=== PATIENT | female | born 1955 | race Caucasian/White ===

== ENCOUNTER 2019-12-31 11:06 | Outpatient (CLI) | payer OTHER, SELFPAY ==
--- NOTE | ~2019-12-31 | XR_ITS ---
EXAMINATION:XR cervical spine 4-5V DATE: 12/31/2019 11:43 INDICATION: Neck pain TECHNIQUE: AP, lateral, lateral swimmers and odontoid views of the cervical spine are provided. COMPARISON: 04/06/2010 FINDINGS: Alignment is normal. The odontoid is intact. No fracture is identified. The vertebral body heights are normal. There is mild loss of intervertebral disc space height throughout the cervical sp ine. Small degenerative osteophytes project from the anterior endplates of multiple vertebral bodies. There is moderate multilevel facet and uncovertebral joint osteoarthritis. Prevertebral soft tissues are normal. IMPRESSION: 1. Mild cervical spondylosis without acute findings or significant interval change. Reviewed, dictated and finalized at location A. IMPRESSION: 1. Mild cervical spondylosis without acute findings or significant interval lorena donnye.
== END 2019-12-31 11:07 | disposition home or self-care (01) ==
PROVIDERS: PCP Physician Assistant; Visit Provider Physician Assistant
DX: M47.812 Spondylosis without myelopathy or radiculopathy, cervical region (principal)
CPT/HCPCS: 72050

== ENCOUNTER 2020-01-18 12:55 | Outpatient (CLI) | payer OTHER, SELFPAY ==
--- NOTE | ~2020-01-18 | MR_ITS ---
EXAMINATION: MR cervical spine wo con DATE: 01/18/2020 13:48 INDICATION: Cervical spondylosis. Neck pain radiating to the shoulders. TECHNIQUE: Magnetic resonance imaging (MRI) of the cervical spine was performed without intravenous c ontrast. Sequences included sagittal T2-weighted FSE, sagittal T2-weighted FS FSE, sagittal T1-weight ed FSE, axial MERGE, and axial T2-weighted FSE. COMPARISON: None FINDINGS: There is 4 degrees levocurvature of cervical spine. Vertebral body heights are normal. Ther e is moderately decreased disc height at C3-C4 and C5-C6 and mildly decreased disc height at C4-C5 an d C6-C7. The spinal cord signal intensity is normal. The following disc levels are specifically discu ssed: C2-C3: The disc does not extend beyond the endplate margin. There is no uncovertebral joint osteoarth ritis. There is mild right and moderate left facet joint osteoarthritis. There is no neural foraminal stenosis. There is no central canal stenosis. C3-C4: The disc is bulging. There is severe right and mild left uncovertebral joint osteoarthritis. T here is mild bilateral facet joint osteoarthritis. There is mild right neural foraminal stenosis. The re is mild central canal stenosis with ventral indentation of spinal cord. C4-C5: The disc is bulging. There is mild right and moderate left uncovertebral joint osteoarthritis. There is mild bilateral facet joint osteoarthritis. There is mild left neural foraminal stenosis. Th ere is mild central canal stenosis. C5-C6: The disc is bulging. There is severe bilateral uncovertebral joint osteoarthritis. There is mi ld bilateral facet joint osteoarthritis. There is moderate bilateral neural foraminal stenosis. There is mild central canal stenosis. C6-C7: The disc is bulging. There is mild bilateral uncovertebral joint osteoarthritis. There is mild bilateral facet joint osteoarthritis. There is mild bilateral neural foraminal stenosis. There is mi ld central canal stenosis. C7-T1: The disc does not extend beyond the endplate margin. There is no uncovertebral joint osteoarth ritis. There is mild bilateral facet joint osteoarthritis. There is no neural foraminal stenosis. The re is no central canal stenosis. IMPRESSION: 1. Moderate cervical spondylosis. Reviewed, dictated and finalized at location E.
== END 2020-01-18 12:56 | disposition home or self-care (01) ==
PROVIDERS: PCP Physician Assistant; Visit Provider Physician Assistant
DX: M47.812 Spondylosis without myelopathy or radiculopathy, cervical region (principal)
CPT/HCPCS: 72141

== ENCOUNTER 2020-01-25 15:44 | Outpatient (CLI) | payer OTHER, SELFPAY ==
[2020-01-25 16:58] LABS: Basophils Absolute Auto 0.1 K/mm3 (0.0-0.1); Basophils Percent Auto 0.7 % (0.2-1.2); Eosinophils Absolute Auto 0.1 K/mm3 (0-0.3); Eosinophils Percent Auto 1.6 % (0-4.4); Hematocrit 39.7 % (37.0-47.0); Hemoglobin 12.7 g/dL (12.0-15.0); Immature Granulocyte Absolute 0.02 K/mm3 (0.00-0.031); Immature Granulocyte Percent A 0.3 % (0-0.5); Lymphocytes Absolute Auto 1.89 K/mm3 (0.9-3.2); Mean Corpuscular Hemoglobin 29.3 pg (26-34); Mean Corpuscular Volume 91.7 fl (80-100); Mean Platelet Volume 12.5 fl (7.4-10.4); Monocytes Absolute Auto 0.9 K/mm3 (0.1-0.6); Monocytes Percent Auto 11.4 % (2.6-8.5); Neutrophils Absolute Auto 4.6 K/mm3 (1.3-6.7); Platelet Count Result 264 k/mm3 (150-375); Red Blood Count 4.33 M/mm3 (4.2-5.4); Red Cell Distribution Width 12.9 % (11.5-14.5); White Blood Count 7.6 K/mm3 (4.5-10.0)
[2020-01-25 17:01] LABS: Add Urine Microscopic? NO; Appearance Urine Clear (Clear); Bilirubin Urine Negative (Negative); Blood Urine Negative (Negative); Color Urine Colorless (Yellow); Glucose Urine UA Negative (Negative); Ketones Urine Negative (Negative); Leukocyte Esterase Ur Negative LEU/UL (Negative); Nitrate Urine Negative (Negative); Protein Urine Negative (Negative); Urobilinogen Urine Negative mg/dL (<2.0)
[2020-01-25 17:04] LABS: Specific Grav Ur 1.004 (1.001-1.035)
[2020-01-25 17:12] LABS: Hemoglobin A1C 5.4 % (<5.7)
[2020-01-25 17:16] LABS: Alanine Aminotransferase 21 U/L (4-35); Albumin Level 4.5 g/dL (3.5-5.1); Alkaline Phosphatase 105 U/L (38-126); Aspartate Amino Transferase 27 U/L (14-36); Bilirubin,Total 0.5 mg/dL (0.2-1.3); Blood Urea Nitrogen 20 mg/dL (7-17); Calcium 9.2 mg/dL (8.4-10.2); Carbon Dioxide 27 mmol/L (22-30); Chloride 103 mmol/L (98-107); Cholesterol 187 mg/dL (0-200); Estimated Glomerular Filt Rate > 60; Glucose 90 mg/dL (65-105); HDL Direct 55 mg/dL; Potassium 4.5 mmol/L (3.4-5.0); Sodium 137 mmol/L (137-145); Triglycerides 122 mg/dL (<150)
[2020-01-25 17:26] LABS: LDL Cholesterol Direct 99 mg/dL
[2020-01-25 17:41] LABS: Thyroid Stimulating Hormone 0.025 uIU/mL (0.465-4.680)
[2020-01-25 18:08] LABS: Free T4 Free Thyroxine 1.37 ng/mL (0.78-2.19)
== END 2020-01-25 15:45 | disposition home or self-care (01) ==
PROVIDERS: PCP Physician Assistant; Visit Provider Physician Assistant
DX: E03.9 Hypothyroidism, unspecified (principal); Z13.6 Encounter for screening for cardiovascular disorders; Z13.1 Encounter for screening for diabetes mellitus; Z79.899 Other long term (current) drug therapy
CPT/HCPCS: 36415; 80053; 80061; 81003; 83036; 84439; 84443; 85025

== ENCOUNTER 2020-03-01 04:53 | Emergency (ER) | payer OTHER, SELFPAY ==
--- NOTE | ~2020-03-01 | CT_ITS ---
EXAMINATION: CT abdomen pelvis w con DATE: 03/01/2020 05:42 INDICATION: Low abdominal pain. TECHNIQUE: Computed tomography (CT) of the abdomen and pelvis was performed with 100 mL Omnipaque 350 intravenous contrast. Automated exposure control and iterative reconstruction technique were employe d. The dose-length product was 583.50 mGy-cm. COMPARISON: CT abdomen and pelvis 09/07/2017 FINDINGS: The visualized portions of the lung bases demonstrate calcified left lung nodules, consiste nt with old granulomatous disease. No pleural effusion. The heart size is normal. No pericardial effu zeus. The liver is normal. There are changes of cholecystectomy. Calcifications in the spleen are con sistent with old granulomatous disease. The pancreas, adrenal glands, and kidneys are normal. There a re scattered diverticula in the colon. There is wall thickening of the sigmoid colon with fat strandi ng centered at a diverticulum, consistent with diverticulitis. There are no dilated loops of bowel. T he appendix is normal. There are no pathologically enlarged lymph nodes. There is trace pelvic ascite s. There is severe lower lumbar spondylosis. IMPRESSION: 1. Sigmoid diverticulitis. No perforation or abscess. Reviewed, dictated and finalized at location A.
[2020-03-01 04:58] VITALS: BP 214/86; PULSE 89; RESP 17; TEMP 36.4; O2SAT 100
--- NOTE | 2020-03-01 05:01 | ED.ABDPAIN ---
HPI - Abdominal Pain General Chief Complaint: Abdominal Pain Stated Complaint: abd pain Time Seen by Provider: 03/01/20 04:56 History of Present Illness HPI narrative: Sharp stabbing pain in the lower abdomen for the past 3 days. She reports having diarrhea at the onset. That resolved 2 days ago andf the pain seemed to be getting better, but returned last night. Additionally she c/o burning pain with urination. No frequency, urgency. Related Data Allergies Allergy/AdvReac Type Severity Reaction Status Date / Time codeine Allergy Unknown Urticaria Verified 02/09/19 14:50 diphenhydramine Allergy Unknown Rash Verified 10/18/16 09:44 hydrocodone Allergy Unknown Verified 10/18/16 09:44 nitrofurantoin Allergy Unknown Verified 06/29/10 05:22 tramadol Allergy Unknown Verified 04/19/15 14:28 DIPHENHYDRAMINE HCL AdvReac Mild ITCHING Uncoded 05/17/19 12:57 Review of Systems Review of Systems: All systems reviewed & are unremarkable except as noted in HPI and below Constitutional: Constitutional: Denies chills and Denies fever(s) Cardiovascular: Cardiovascular: Denies chest pain Respiratory: Respiratory: Denies dyspnea Gastrointestinal: Gastrointestinal: Reports abdominal pain, Denies nausea and Denies vomiting Genitourinary: Genitourinary: Denies hematuria, Denies nocturia and Reports dysuria Musculoskeletal: Musculoskeletal: Denies back pain Neurologic: Denies numbness and Denies weakness [facility] Past Medical History Medical History (Updated 03/01/20 @ 06:36 by Carlos Heck MD) Diverticulitis Family History Family History Grandparent Diabetes mellitus Social History Social History Smoking status: Never smoker Second hand tobacco smoke exposure: No Alcohol intake: never Exam Const: General: healthy appearing, no acute distress and alert Orientation/consciousness: patient oriented x3 HENMT: Head: normal to inspection Neck: Neck: normal visual inspection and no lymphadenopathy Chest: Chest palpation & inspection: no tenderness Resp: Effort & Inspection: normal respiratory effort Auscultation: clear to auscultation bilaterally, no rales, no rhonchi and no wheezes Cardio: Jugular venous distension: no JVD Rate: regular rate Rhythm: regular rhythm Heart sounds: no murmurs GI: Inspection: non-distended GI Palp: Yes Soft to palpation and Yes Tenderness to palpation present (GI) (Suprapubic and LLQ) Skin: General skin exam: normal color Neuro: General: patient oriented x3 and moves all extremities Speech: normal speech Extrem: General: no edema Psych: Appearance: well kempt Affect: Anxious affect present Course Vital Signs Vital signs: Vital Signs Temperature 36.4 C L 03/01/20 04:58 Pulse Rate 89 03/01/20 04:58 Respiratory Rate 17 03/01/20 04:58 Blood Pressure 214/86 H 03/01/20 04:58 Pulse Oximetry 100 03/01/20 04:58 Temperature 36.4 C L 03/01/20 04:58 Pulse Rate 77 03/01/20 06:52 Respiratory Rate 18 03/01/20 06:52 Blood Pressure 132/77 03/01/20 06:52 Pulse Oximetry 98 03/01/20 06:52 MDM - Abdominal Pain MDM Narrative Medical decision making narrative: CT shows uncomplicated diverticulitis. She should be a good candidate for outpatient treatment. Differential Diagnosis Differential diagnosis: Likely acute appendicitis, diverticulitis, pancreatitis and other (UTI) Medical Records Attestation: I reviewed the patient's medical records. Lab Data Attestation: I reviewed the patient's lab results. Result diagrams: 03/01/20 05:02 03/01/20 05:02 Labs: Lab Results 03/01/20 03/01/20 03/01/20 Range/Units 05:02 05:02 05:54 WBC 9.2 (4.5-10.0) K/mm3 RBC 4.59 (4.2-5.4) M/mm3 Hgb 13.5 (12.0-15.0) g/dL Hct 42.1 (37.0-47.0) % MCV 91.7 (80-100) fl MCH 29.4 (26-34) pg MCHC 32.1
[2020-03-01 05:08] LABS: Basophils Percent Auto 0.3 % (0.2-1.2); Eosinophils Absolute Auto 0.2 K/mm3 (0-0.3); Eosinophils Percent Auto 1.9 % (0-4.4); Hematocrit 42.1 % (37.0-47.0); Hemoglobin 13.5 g/dL (12.0-15.0); Immature Granulocyte Absolute 0.03 K/mm3 (0.00-0.031); Immature Granulocyte Percent A 0.3 % (0-0.5); Lymphocytes Absolute Auto 1.94 K/mm3 (0.9-3.2); Lymphocytes Percent Auto 21.2 % (18.3-44.2); Mean Corpuscular HGB Conc 32.1 g/dl (32-36); Mean Corpuscular Hemoglobin 29.4 pg (26-34); Mean Corpuscular Volume 91.7 fl (80-100); Mean Platelet Volume 11.9 fl (7.4-10.4); Monocytes Percent Auto 10.6 % (2.6-8.5); Neutrophils Percent Auto 65.7 % (45.5-73.1); Platelet Count Result 259 k/mm3 (150-375); Red Blood Count 4.59 M/mm3 (4.2-5.4); Red Cell Distribution Width 12.9 % (11.5-14.5); White Blood Count 9.2 K/mm3 (4.5-10.0)
[2020-03-01 05:30] LABS: Alanine Aminotransferase 24 U/L (4-35); Albumin Level 4.6 g/dL (3.5-5.1); Alkaline Phosphatase 103 U/L (38-126); Aspartate Amino Transferase 31 U/L (14-36); Bilirubin,Total 0.7 mg/dL (0.2-1.3); Blood Urea Nitrogen 19 mg/dL (7-17); Calcium 9.4 mg/dL (8.4-10.2); Carbon Dioxide 24 mmol/L (22-30); Chloride 104 mmol/L (98-107); Estimated CRCL calculation 65 ml/min; Estimated Glomerular Filt Rate > 60; Glucose 99 mg/dL (65-105); Lipase 133 U/L (23-300); Potassium 4.3 mmol/L (3.4-5.0); Sodium 137 mmol/L (137-145)
[2020-03-01 06:05] LABS: Add Urine Microscopic? YES; Appearance Urine Clear (Clear); Bilirubin Urine Negative (Negative); Blood Urine Negative (Negative); Color Urine Colorless (Yellow); Glucose Urine UA Negative (Negative); Ketones Urine Negative (Negative); Leukocyte Esterase Ur 2+ LEU/UL (Negative); Nitrate Urine Negative (Negative); Protein Urine Negative (Negative); RBC Urine 0-2 /hpf (0-2); Specific Grav Ur 1.016 (1.001-1.035); Squamous Epithelial Cell Urine Occasional /hpf (Few); Transitional Epi Cells Urine Rare /hpf (None Seen); Urobilinogen Urine Negative mg/dL (<2.0)
[2020-03-01] MEDS: metroNIDAZOLE 250 MG TABLET 500 MG PO (06:33)
[2020-03-01] MEDS: CIPROFLOXACIN 500 MG TAB PO (06:33)
[2020-03-01 06:36] VITALS: BP 175/77; PULSE 72; RESP 18; O2SAT 100
[2020-03-01 06:52] VITALS: BP 132/77; PULSE 77; RESP 18; O2SAT 98
== END 2020-03-01 06:53 | disposition home or self-care (01) ==
PROVIDERS: Emergency Provider Emergency Medicine; PCP Physician Assistant
DX: K57.32 Diverticulitis of large intestine without perforation or abscess without bleeding (principal)
CPT/HCPCS: 36415; 74177; 80053; 81001; 83690; 85025; 87086; 87088; 96374; 99284; A9270; J3010; Q9967

== ENCOUNTER 2020-06-22 09:00 | Outpatient (RCR) | payer OTHER, SELFPAY ==
--- NOTE | 2020-06-01 09:06 | PTOPEVAL ---
PHYSICAL THERAPY EVALUATION AND PLAN OF CARE 06-01-2020 Thank you for referring Flori Mendosa to [facility].? She is scheduled to be seen for therapy? 2 x/week for 3 weeks. Please review, sign, date and return this plan of care GEOVANI. I agree with and certify that the following plan of care is medically necessary. Referring Physician Date Attending Provider: Abelardo Deleon MD *PT Outpatient Evaluation Document 06/01/20 08:05 LUDA (Rec: 06/01/20 09:03 LUDA [id number]) Outpatient Past Medical History Past Medical History Source of Past Medical History Patient Neurological History Hx Neurological Disorders No Significant History Cardiovascular History Hx Cardiac Disorders No Significant History Respiratory History Hx Respiratory Disorders No Significant History Gastrointestinal History Hx Diverticulitis Yes: 2x Genitourinary History Hx Genitourinary Disorders No Significant History Musculoskeletal History Hx Orthopedic Surgery Yes: L tibial ORIF 2018 Hx Other Musculoskeletal Disorders Yes: arthritis L knee Hematological History Hx Hematological Disorders No Significant History Endocrine History Hx Hypothyroidism Yes: meds HEENT History Hx Other HEENT Disorders Yes: wear glasses Integumentary History Hx Skin Disorders No Significant History Reproductive History Hx Other Reproductive Disorders Yes: cyst removed R ovary Evaluation Information Problem Diagnosis R medial meniscal tear Onset 03-25-2020 Subjective Information twisted knee and it popped; Query Text:As Reported By Patient/ continued to pop and pain Family increased; had injection R knee, 2019- did not really help with pain, but did decrease some of swelling; wants her to try PT, then reassess if she needs MRI and/or surgery if PT not help knee; Diagnostic Tests X-Rays For This Problem Yes: R knee arthritis, no fracture MRI For This Problem No Other Tests For This Problem No Previous Treatments Previous Treatments For This Problem no PT for R knee Prior Level of Function Activity Level (Last 3 Months) 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
--- NOTE | 2020-06-22 09:26 | PTOPEVAL ---
PHYSICAL THERAPY DISCHARGE 06-22-2020 Refer to the clinical summary below for her status at discharge. Thank you for referring Flori Mendosa to [facility].? Please review, sign, date and return this discharge GEOVANI. I agree with and certify that the following plan of care is medically necessary. Referring Physician Date Attending Provider: Abelardo Deleon MD *PT Outpatient discharge Document 06/22/20 09:08 LUDA (Rec: 06/22/20 09:26 LUDA [id number]) Subjective Information Flori reports: knee is better; Query Text:As Reported By Patient/ twisted the other night and Family had pain in front of R hip- stretched and used ice on it; feel like she is ready to be finished with therapy and to do exercises at home for continued strength of her knee ; agrees to discharge from PT services; Pain Assessment Timing of Pain Assessment Timing of Pain Assessment Assessment Pain Scale Pain Scale Used Numeric (1 - 10) Self Report Pain Assessment Right Knee(s) Reported Pain Level 0 Pain Description Aching,Tightness Pain Frequency Acute Other Pain Description medial knee Lowest Pain Intensity 0 Greatest Pain Intensity 7 Pain Aggravating Factors Exercise/Activity Other Pain Aggravating Factors twisting knee;worked 8 hours last night without an increase in knee pain Pain Score Pain Score 0: Self Report Interventions Used Interventions Used By Clinicians Exercise,Taping Pain Relief Interventions Used By Ice,Inactivity/Rest Patient Other Alleviating Interventions took muscle relaxer few nights ago, but PRN only use of med; motrin PRN Lower Extremity Range of Motion General Lower Extremity Range of Motion Gross Lower Extremity Range of Motion sitting R knee active ROM 0' Comments to flexion 120'- tight report and pulls posterior knee Lower Extremity Muscle Strength Testing General Lower Extremity Strength Gross Lower Extremity Strength single leg stand R 30+ seconds - no increase pain and steady balance; supine: R LE SLR x 22; bridge x 25 reps; side lying hip abduction x 25 reps; side lying hip adduction x 25 reps; issued green theraband to do
== END 2020-06-22 15:17 | disposition home or self-care (01) ==
LOC: ANHPT 09:00
PROVIDERS: PCP Physician Assistant; Visit Provider Orthopaedic Surgery
DX: S83.241D Other tear of medial meniscus, current injury, right knee, subsequent encounter (principal)
CPT/HCPCS: 97035; 97110; 97140; 97161; 97530

== ENCOUNTER 2020-07-03 07:55 | Outpatient (CLI) | payer OTHER, SELFPAY ==
--- NOTE | ~2020-07-03 | MR_ITS ---
EXAMINATION: MR knee RT wo con DATE: 07/03/2020 09:05 INDICATION: Other tear of medial meniscus, right knee. TECHNIQUE: Magnetic resonance imaging (MRI) of the right knee was performed without intravenous contr ast. Sequences included axial PD-weighted FS FSE, coronal PD-weighted FSE and PD-weighted FS FSE, sag ittal PD-weighted FSE, and sagittal T2-weighted FS FSE. COMPARISON: Right knee radiographs 05/17/2020 FINDINGS: Medial compartment: There is a tear of body and posterior horn of medial meniscus with torn bucket-handle component in th e intercondylar notch. There is cartilage surface irregularity of tibial condyle. There is deep parti al thickness cartilage loss of femoral condyle involving the medial and posterior articular surface w ith mild subchondral edema-like marrow signal intensity. Lateral compartment: Lateral meniscus is normal. Lateral compartment cartilage is normal. Patellofemoral compartment: There is shallow partial-thickness cartilage loss of patellar medial and lateral facets and central a nd medial trochlea. There is deep cartilage fissuring of central trochlea with mild subchondral edema -like marrow signal intensity. Ligaments and tendons: Anterior and posterior cruciate ligaments are normal. Medial collateral ligament and lateral collater al ligament complex are normal. The patellar tendon is normal. Fluid: There is a moderate-sized knee joint effusion. There is trace fluid in a Jauregui's cyst. There is mild prepatellar and superficial infrapatellar bursitis. IMPRESSION: 1. Moderate chondrosis of medial compartment and mild chondrosis of lateral and patellofemoral compar tments. 2. Torn bucket-handle tear of medial meniscus. 3. Moderate-sized knee joint effusion. Reviewed, dictated and finalized at location A. OPERATIONS MANAGER IMPRESSION: 1. Moderate chondrosis of medial compartment and mild chondrosis of lateral and patellofemoral compartments. 2. Torn bucket-handle tear of medial meniscus. 3. Moderate-sized knee joint effusion.
== END 2020-07-03 07:56 | disposition home or self-care (01) ==
PROVIDERS: PCP Physician Assistant; Visit Provider Orthopaedic Surgery
DX: S83.211A Bucket-handle tear of medial meniscus, current injury, right knee, initial encounter (principal); X58.XXXA Exposure to other specified factors, initial encounter; M25.461 Effusion, right knee
CPT/HCPCS: 73721

== ENCOUNTER 2020-07-08 00:57 | Outpatient (CLI) | payer OTHER, SELFPAY ==
[2020-07-08 18:31] LABS: SARS-CoV-2 RNA PCR Negative
== END 2020-07-08 00:58 | disposition home or self-care (01) ==
LOC: ANHCOVIDDT 00:58
PROVIDERS: PCP Physician Assistant; Visit Provider Orthopaedic Surgery
DX: Z01.812 Encounter for preprocedural laboratory examination (principal); Z20.828 Contact with and (suspected) exposure to other viral communicable diseases
CPT/HCPCS: 87635; C9803; U0003

== ENCOUNTER 2020-07-11 00:39 | Day surgery (SDC) | payer OTHER, SELFPAY ==
[2020-07-05 12:48] VITALS: BMI 27.8
[2020-07-11] VITALS (7 sets, daily range): BP systolic 131–166; BP diastolic 59–74; PULSE 64–75; RESP 10–16; TEMP 36.3–37.1; O2SAT 96–100
[2020-07-11] MEDS: ACETAMINOPHEN 500 MG TABLET 1000 MG PO (08:34)
[2020-07-11] MEDS: LACTATED RINGERS 1,000 ML 30 ML IV CONT ×2 (09:00→11:17)
[2020-07-11] MEDS: KETOROLAC 15 MG/ML VIAL (*BKC) IV PUSH (09:02)
--- NOTE | 2020-07-11 09:37 | WPDANESEPPF ---
Anes - Initial Pre Proc Eval Procedure: Operation Date: 07/11/20 10:00 Proposed Procedures p Right Knee Arthroscopy, Partial Medial Meniscectomy, Proceed As Indicated - Abelardo Deleon MD Date/Time: 07/11/20 09:37 Surgeon: Abelardo Deleon MD Pre Op Diagnosis: Right Knee Medial Meniscus Tear Patient Data Age: 64 Gender: F Height: 5 ft 5 in Weight: 76 kg Last Vital Signs Temp 36.3 C L 07/11/20 08:15 Pulse 71 07/11/20 08:15 Resp 16 07/11/20 08:15 BP 147/74 H 07/11/20 08:15 Pulse Ox 99 07/11/20 08:15 Allergies Allergy/AdvReac Type Severity Reaction Status Date / Time codeine Allergy Unknown Confusion Verified 07/11/20 08:21 diphenhydramine Allergy Unknown Nausea/hive Verified 07/11/20 08:21 s nitrofurantoin Allergy Unknown Nausea Verified 07/11/20 08:21 tramadol Allergy Unknown Nausea and Verified 07/11/20 08:21 Vomiting Home Medications Medication Instructions Recorded Confirmed Type citalopram 20 mg PO QAM 07/05/20 07/11/20 History ibuprofen [Motrin] 400 mg PO PRN PRN 07/05/20 07/11/20 History levothyroxine 100 mcg PO DAILY 07/05/20 07/11/20 History timolol [Betimol] 1 drp OPHTHALMIC (EYE) BID 07/05/20 07/11/20 History Patient hx anesthesia problems: none Family hx anesthesia problems: none PMFSH Past Medical History Medical History (Updated 07/11/20 @ 09:37 by Navneet Sena MD) Diverticulitis Hypothyroidism Overweight Surgical History Surgical History (Updated 07/11/20 @ 09:37 by Navneet Sena MD) History of cholecystectomy History of surgery (~03/04/19) IM Nailing Lt Distal Tibial Shaft Family History Family History Grandparent Diabetes mellitus Social History Social History Smoking status: Never smoker Second hand tobacco smoke exposure: No Alcohol intake: never Living arrangements: with family Spiritual care concerns: No Anes - Eval Final PreProcedure Day of Procedure 07/11/20 09:37 Patient weight: overweight Heart: regular rate and rhythm Lungs: clear to auscultation Airway: Mallampati scale class II Neurological: alert and oriented Last oral intake: >/= 8 hours ASA classification: II Emergent: no Anesthetic plan: proceed Anesthesia type and monitoring: general LMA and standard monitoring Informed Consent: The patient's anesthetic plan and its attendant risks and benefits were discussed with the patient/family/POA. Questions were solicited and answers provided to the satisfaction of the patient/family/POA.
--- NOTE | 2020-07-11 09:55 | WPDHPUPDATE1 ---
History and Physical Update Update Date/Time: 07/11/20 09:55 History and Physical has been reviewed, including an updated exam of the patient. There are NO changes in the patient's condition. Risks, benefits, and alternatives have been discussed and questions answered. Patient agrees to proceed with procedure.
[2020-07-11] MEDS: ceFAZolin 2 GM/D5W 50 ML 2 GM/50 ML BAG IVPB (10:09)
[2020-07-11] MEDS: fentaNYL CITRATE INJ (*CRX) 100 MCG/2 ML VIAL 25 MCG IV PUSH ×3 (11:38→12:33)
[2020-07-11] MEDS: ONDANSETRON INJ 4 MG/2 ML VIAL IV PUSH (13:02)
--- NOTE | 2020-07-11 16:20 | PM.PROC ---
Procedure Note - Detailed Date of procedure: 07/12/20 Pre-op diagnosis: Right Knee Medial Meniscus Tear Medial meniscus tear. Post-op diagnosis: same Procedure performed: Arthroscopic partial medial meniscectomy. Description of procedure: Extensive medial and posterior medial tearing of the meniscus and countered. Large displaced fragment into the medial intercondylar notch. Grade 2 chondromalacia on the posterior medial femoral condyle. Fairly small isolated area. Tibia with grade 1 chondromalacia. Lateral compartment entirely benign. Anterior cruciate ligament intact. Minimal grade 1 chondromalacia at the patellofemoral articulation. No other loose bodies or abnormal findings. Anesthesia: GETA Surgeon: Abelardo Deleon MD Community Integration Specialist: Anika Cuevas PA-C Estimated blood loss (mL): 5 Complications: None Condition: stable Findings: Brief History: The patient complained of knee pain, swelling and mechanical symptoms despite conservative treatment. MRI confirmed the presence of a meniscus tear. Procedure Details: The patient was identified and the surgical site confirmed and signed in the preoperative holding area. Antibiotics were started per protocol. She was brought to the operative room and transferred to the OR table. A general anesthetic was administered. Supine position with the operative lower extremity position in the leg loving after placement of a well padded tourniquet. The leg support was lowered and the contralateral limb was supported with a soft bolster. The knee was prepped and draped in the usual sterile fashion. A time-out was performed. The portal sites were marked and infiltrated with 0.5% Marcaine 20 mL. The limb was exsanguinated and the tourniquet inflated to 300 mL Hg. Standard inferolateral and inferomedial portals were established. Inflow was obtained with the saline pump. The camera was introduced. Diagnostic inspection of the joint was accomplished. The meniscus was debrided with the arthroscopic shaver and punches until stable. The arthroscopic instruments were removed. The tourniquet released and wounds closed with subcutaneous 3-0 Monocryl absorbable suture. Steri strips and a sterile dressing were applied. A light elastic wrap was placed. The patient was extubated and brought to the recovery room in stable condition.
== END 2020-07-11 13:20 | disposition home or self-care (01) ==
PROVIDERS: PCP Physician Assistant; Visit Provider Orthopaedic Surgery
PROC: (CPT 29870; principal; 2020-07-11 10:00)
DX: M23.331 Other meniscus derangements, other medial meniscus, right knee (principal); M22.41 Chondromalacia patellae, right knee; E03.9 Hypothyroidism, unspecified
CPT/HCPCS: 29881; A9270; J0690; J1100; J1885; J2250; J2405; J2704; J3010; J7120

== ENCOUNTER 2020-08-09 08:30 | Outpatient (RCR) | payer OTHER, SELFPAY ==
--- NOTE | 2020-07-19 17:38 | PTOPEVAL ---
PHYSICAL THERAPY EVALUATION AND PLAN OF CARE Thank you for referring Flori Menodsa to [facility] [place] [facility] [place] The patient is scheduled to be seen for therapy? 2x/week for 3 weeks. Please review, sign, date and return this plan of care GEOVANI. I agree with and certify that the following plan of care is medically necessary. Referring Physician Date Attending Provider: Abelardo Deleon MD Evaluation Gastrointestinal History Hx Cholecystectomy Yes Hx Diverticulitis Yes: 2x Musculoskeletal History Hx Arthritis Yes: KNEES AND FINGERS Hx Crutches or Walker Use Yes: CRUTCHES 2019 Query Text:If Yes, Enter Crutches, Walker, or Both in the Comment Hx Orthopedic Surgery Yes: L tibial ORIF 2019 Hx Other Musculoskeletal Disorders Yes: RT KNEE MEDIAL MENISCUS TEAR Endocrine History Hx Hypothyroidism Yes HEENT History Hx Glaucoma Yes: EYE DROPS Hx Other HEENT Disorders Yes: wear glasses Reproductive History Hx Other Reproductive Disorders Yes: dermoid cyst removed R ovary. RT LUMPECTOMY MASS BENIGN Psychosocial History Hx Depression Yes Pain History History of Any Previous or Ongoing No Significant History Instance of Pain Anesthesia History Hx Anesthesia Reactions No Significant History Diagnosis right medial meniscectomy Onset 07/11/2020 Subjective Information Flori is here today 8 days after Query Text:As Reported By Patient/ right medial meniscectomy. No Family devices were used. She rested for the first 3 days after surgery. Not back to work yet. She sees doctor again on and will make further decisions at that time. 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 Reports that since surgery there has been a pulling in the back of the knee but otherwise pain is very manageable. Self Report Pain Assessment Right Knee(s) Reported Pain Level 3 Pain Description Aching,Pulling Pain Score Pain Score 3: Self Report Interventions Used Interventions Used By Clinicians Exercise,Ice Pain Relief Interventions Used By Ice,Medication Patient Lower Extremity Range of Motion Knee Range of Motion Right Knee Flexion Range of Motion - Active 112 Knee Extension Range of Motion - Active -5 Query Text: Lower Extremity Muscle Strength Testing Knee Strength Rig
--- NOTE | 2020-08-09 09:13 | PTOPEVAL ---
PHYSICAL THERAPY DISCHARGE NOTE Thank you for referring Flori Mendosa to [facility].? . Please review, sign, date and return this plan of care GEOVANI. I agree with and certify that the following plan of care is medically necessary. Referring Physician Date Attending Provider: Abelardo Deleon MD Discharge Diagnosis right medial menisectomy Onset 07/11/2020 Subjective Information Flori is 1 month s/p right Query Text:As Reported By Patient/ menisectomy. She reports no Family pain and is feeling good. Next MD appt is 08/21 and return to work will be determined at that time. Reports she is able to do as she wants at home without requiring rest breaks. She will get some mild pulling in the back of the knee when walking long distance. Pain Score Pain Score 0: Self Report Lower Extremity Range of Motion Knee Range of Motion Right Knee Flexion Range of Motion - Active 140 Knee Extension Range of Motion - Active 0 Query Text: Lower Extremity Muscle Strength Testing General Lower Extremity Strength Reason Not Measured WNL/Left,WNL/Right Knee Strength Right Knee Flexion Strength 5 Normal Knee Extension Strength 5 Normal Palpation Assessment Palpation Palpation mild edema noted beneath patella and increased tightness noted to medial hamstring tendon at insertion Gait Assessment 2 Minute Walk Total Distance Walked (feet) 429 2 Minute Walk Gait Speed Score (feet/ 3.57 second) Stair Climbing Assessment Stair Climbing Assessment Stair Climbing Assistive Devices None Weight Bearing Status - Left Full Weight Bearing Status - Right As Tolerated Maintains Weight Bearing Status Yes Number of Steps Climbed (Steps) 4 Number of Repetitions (Repetitions) 2 Technique Alternating Steps Stair Climbing Direction Both Up and Down Stair Climbing Ability Independent Stair Climbing Comments independent with some deficit to eccentric control of right LE PT Clinical Summary Flori is a 64 yo female presenting to therapy 1month after right arthroscopic surgery for median menisectomy and fluid reduction. She demonstrates today a normal
== END 2020-10-02 12:14 | disposition home or self-care (01) ==
LOC: ANHPT 08:30
PROVIDERS: PCP Physician Assistant; Visit Provider Orthopaedic Surgery
DX: Z48.89 Encounter for other specified surgical aftercare (principal)
CPT/HCPCS: 97110; 97140; 97161

== ENCOUNTER 2020-08-09 09:17 | Outpatient (CLI) | payer OTHER, SELFPAY ==
[2020-08-09 10:47] LABS: Thyroid Stimulating Hormone 0.026 uIU/mL (0.465-4.680)
== END 2020-08-09 09:18 | disposition home or self-care (01) ==
PROVIDERS: PCP Physician Assistant; Visit Provider Physician Assistant
DX: E03.9 Hypothyroidism, unspecified (principal)
CPT/HCPCS: 36415; 84439; 84443

== ENCOUNTER 2020-10-19 08:24 | Outpatient (CLI) | payer OTHER, SELFPAY ==
--- NOTE | ~2020-10-19 | MM_ITS ---
EXAMINATION: MM screening david BI w jermaine HISTORY: Screening mammogram TECHNIQUE: Craniocaudal and mediolateral oblique 3-D tomosynthesis images were obtained and synthetic 2-D images were generated. CAD analysis was submitted and interpreted. COMPARISON: 07/21/2019, 02/26/2018, 02/15/2017, 12/11/2015 bilateral digital screening mammogram examinati ons 11/07/2014 diagnostic right digital mammogram 6. I diagnostic right digital mammogram and right breast ultrasound 01/04/2014 bilateral digital screening mammogram BREAST PARENCHYMAL COMPOSITION: There are scattered areas of fibroglandular density. FINDINGS: Focal small irregular asymmetry at mid to posterior depth in the upper right breast on MLO projection, possibly mild fibroglandular asymmetry; recommend diagnostic right mammogram, with ultras ound if required to exclude any possible small mass lesion. Otherwise there is no evidence of suspicious mass, calcification, or architectural distortion to sugg est malignancy in either breast. There has been no other suspicious interval change. IMPRESSION: 1. Focal small irregular asymmetry in the upper right breast on MLO view at mid to posterior depth, p ossibly mild fibroglandular asymmetry 2. Recommend diagnostic right mammogram, with ultrasound if required. BI-RADS Category 0: Incomplete: Needs additional imaging evaluation. Reviewed, dictated and finalized at location A. D AMBASSADOR PROMOTIONAL MODEL IMPRESSION: 1. Focal small irregular asymmetry in the upper right breast on MLO view at mid to posterior depth, possibly mild fibroglandular asymmetry 2. Recommend diagnostic right mammogram, with ultrasound if required. BI-RADS Category 0: Incomplete: Needs additional imaging evaluation.
== END 2020-10-19 08:25 | disposition home or self-care (01) ==
PROVIDERS: PCP Physician Assistant; Visit Provider Obstetrics & Gynecology
DX: Z12.31 Encounter for screening mammogram for malignant neoplasm of breast (principal); R92.8 Other abnormal and inconclusive findings on diagnostic imaging of breast
CPT/HCPCS: 77063; 77067

== ENCOUNTER 2020-11-10 11:54 | Outpatient (CLI) | payer OTHER, SELFPAY ==
--- NOTE | ~2020-11-10 | MMUS_ITS ---
EXAMINATION: MM diagnostic mammo unilat RT, US breast RT limited HISTORY: Right breast asymmetry on screening mammogram TECHNIQUE: Additional 3-D tomosynthesis images of the right breast were performed and synthetic 2-D i mages were generated. CAD analysis was submitted and interpreted. High resolution limited right breas t ultrasound was performed. COMPARISON: 10/19/2020, 07/21/2019, 02/26/2018, 02/15/2017 FINDINGS: MAMMOGRAPHIC FINDINGS: There is a persistent asymmetry in the middle third of the upper outer quadrant of the breast at the 11:00 location 8 cm from the nipple on the mediolateral oblique view. ULTRASOUND: An intramammary lymph node is noted at the 11:00 location 8 cm from the nipple. IMPRESSION: 1. Probably benign asymmetry of the right breast. 2. Recommend 6 month follow-up right diagnostic mammogram and possible ultrasound. BI-RADS category 3, probably benign findings. Reviewed, dictated and finalized at location A. IMPRESSION: 1. Probably benign asymmetry of the right breast. 2. Recommend 6 month follow-up right diagnostic mammogram and possible ultrasou nd. BI-RADS category 3, probably benign findings.
== END 2020-11-10 11:55 | disposition home or self-care (01) ==
LOC: ANHIMG 11:56
PROVIDERS: PCP Physician Assistant; Visit Provider Obstetrics & Gynecology
DX: R92.8 Other abnormal and inconclusive findings on diagnostic imaging of breast (principal)
CPT/HCPCS: 76642; 77065

== ENCOUNTER 2021-01-09 22:07 | Emergency (ER) | payer OTHER, SELFPAY ==
--- NOTE | ~2021-01-09 | XR_ITS ---
EXAMINATION: XR chest 2V DATE: 01/10/2021 01:52 INDICATION: Shortness of breath and cough TECHNIQUE: PA and lateral views of the chest were obtained. COMPARISON: Chest radiograph dated 10/15/2012 FINDINGS: Unchanged small calcified nodules in the lateral left lower lung zone consistent with old granulomato us disease. Mild biapical pleural-parenchymal scarring. No other airspace opacities, pulmonary edema, pleural effusion or pneumothorax. The cardiomediastinal silhouette is normal. Mild thoracic spondylo sis. IMPRESSION: 1. No acute cardiopulmonary disease. Reviewed, dictated and finalized at location A.
[2021-01-09 22:09] VITALS: BP 157/86; PULSE 113; RESP 18; TEMP 37.5; O2SAT 98
--- NOTE | 2021-01-10 01:09 | PC.NURSE ---
verbal order per ayanna stevens to place xray.
[2021-01-10 02:42] VITALS: BP 141/87; PULSE 110; RESP 25; TEMP 37.6; O2SAT 95
--- NOTE | 2021-01-10 02:48 | ECG_ITS ---
Measurements Intervals [place] Rate: 111 P: 37 NM: 120 QRS: -21 QRSD: 89 T: 76 QT: 319 QTc: 434 Interpretive Statements SINUS TACHYCARDIA INCOMPLETE RIGHT BUNDLE BRANCH BLOCK VOLTAGE CRITERIA FOR LVH MINIMAL Q WAVES- HIGH LATERAL LEADS CANNOT RULE OUT SEPTAL INFARCT, AGE INDETERMINATE ABNORMAL ECG Electronically Signed On 01-10-2021 8:50:19 CDT by Tee Burns D.O.
--- NOTE | 2021-01-10 03:00 | ED.GENADULT ---
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 Patient's family are asymptomatic. Coughing can be triggered with deep breathing. Related Data Home Medications Medication Instructions Recorded Confirmed Betimol 1 drp OPHTHALMIC (EYE) BID 07/05/20 07/24/20 citalopram 20 mg PO QAM 07/05/20 07/24/20 ibuprofen 400 mg PO PRN PRN 07/05/20 07/24/20 levothyroxine 100 mcg PO DAILY 07/05/20 07/24/20 Allergies Allergy/AdvReac Type Severity Reaction Status Date / Time codeine Allergy Unknown Confusion Verified 07/11/20 08:21 diphenhydramine Allergy Unknown Nausea/hive Verified 07/11/20 08:21 s nitrofurantoin Allergy Unknown Nausea Verified 07/11/20 08:21 tramadol Allergy Unknown Nausea and Verified 07/11/20 08:21 Vomiting Review of Systems Review of Systems: Narrative: CONSTITUTIONAL: Denies fever, chills, or sweats. EYES: Denies visual changes, redness, or discharge. ENT: Denies rhinorrhea, congestion, sore throat, or otalgia. CARDIOVASCULAR: Denies chest pain, palpitations, or edema. RESPIRATORY: Denies cough or dyspnea. GASTROINTESTINAL: Denies abdominal pain, nausea, vomiting, or diarrhea. GENITOURINARY: Denies dysuria or hematuria. SKIN: Denies rash or itching. MUSCULOSKELETAL: Denies back pain, joint pain, or myalgia. NEUROLOGIC: Denies headache, numbness, or weakness. PSYCHIATRIC: Denies anxiety or depression. [facility] Past Medical History Medical History Diverticulitis Hypothyroidism Overweight Surgical History Surgical History History of cholecystectomy History of surgery (~03/04/19) IM Nailing Lt Distal Tibial Shaft Family History Family History Grandparent Diabetes mellitus Social History Social History Smoking status: Never smoker Second hand tobacco smoke exposure: No Alcohol intake: never Gender identity (if verbalized by the patient): Female Spiritual care concerns: No Exam Narrative: Exam Narrative: General appearance: Well-developed, well-nourished Skin: Normal color Head: Normocephalic, nontraumatic Eyes: Clear conjunctiva ENT: Oropharynx normal, ears normal, nose normal Neck: Supple, nontender Chest and respiratory: Few scattered rhonchi and wheezing, mild diminution of air entry bilaterally Heart: Tachycardia regular Abdomen: Soft, nontender, no organomegaly, quiet bowel sounds Vascular: Normal peripheral pulses, normal capillary refill. Musculoskeletal: Normal range of motion, nontender back Neurologic: Alert and oriented ?3, SPONGE CLIPPER is normal as tested, no gross motor deficit Course Course Emergency Course: Stable Vital Signs Vital signs: Vital Signs Temperature 37.5 C 01/09/21 22:09 Pulse Rate 113 H 01/09/21 22:09 Respiratory Rate 18 01/09/21 22:09 Blood Pressure 157/86 H 01/09/21 22:09 Pulse Oximetry 98 01/09/21 22:09 Temperature 37.6 C H 01/10/21 02:42 Pulse Rate 110 H 01/10/21 02:42 Respiratory Rate 25 H 01/10/21 02:42 Blood Pressure 141/87 H 01/10/21 02:42 Pulse Oximetry 95 01/10/21 02:42 Medical Decision Making MDM Narrative Medical decision making narra
[2021-01-10 03:20] VITALS: PULSE 101; RESP 19
[2021-01-10] MEDS: ALBUTEROL SULFATE NEB 2.5 MG/0.5 ML INH 5 MG INHALATION (03:27)
[2021-01-10] MEDS: IBUPROFEN 600 MG TABLET PO (03:29)
[2021-01-10] MEDS: BENZONATATE 100 MG CAPSULE 200 MG PO (03:30)
[2021-01-10] MEDS: ACETAMINOPHEN 325 MG TABLET 650 MG PO (03:30)
[2021-01-10 03:41] VITALS: PULSE 109; RESP 20
[2021-01-10 04:02] VITALS: BP 128/60; PULSE 109; RESP 17; O2SAT 97
--- NOTE | 2021-01-10 04:10 | PC.NURSE ---
patient given a work note to return to work after 3 days.
== END 2021-01-10 04:08 | disposition home or self-care (01) ==
PROVIDERS: Emergency Provider Emergency Medicine; PCP Physician Assistant
DX: J06.9 Acute upper respiratory infection, unspecified (principal); B34.9 Viral infection, unspecified; E03.9 Hypothyroidism, unspecified
CPT/HCPCS: 71046; 93005; 94640; 99283; A9270

== ENCOUNTER 2021-01-21 18:28 | Emergency (ER) | payer OTHER, SELFPAY ==
--- NOTE | ~2021-01-21 | XR_ITS ---
EXAMINATION: XR wrist RT min 3V DATE: 01/21/2021 18:45 INDICATION: Right hand pain post fall TECHNIQUE: Posteroanterior, ulnar deviation, oblique, and lateral views of the right wrist were obtai chito. COMPARISON: 12/12/2013 FINDINGS: Diffuse osteopenia. Alignment is normal. No fracture. Severe osteoarthritis at the first carpometacar pal joint. Mild osteoarthritis at several of the metacarpophalangeal and interphalangeal joints. Vp Patient asuncion sclerotic bone islands at the base of the third metacarpal and at the lunate. Soft tissue swellin g at the radial side of the dorsal aspect of the carpus. IMPRESSION: 1. No acute osseous abnormality. 2. Polyarticular osteoarthritis, severe at the first carpometacarpal joint and otherwise mild. Reviewed, dictated and finalized at location A.
--- NOTE | 2021-01-21 18:36 | ED.UPPEXIN ---
HPI - Extremity Injury (Upper) General Chief Complaint: Extremity Injury, Upper Stated Complaint: rt wrist inj Time Seen by Provider: 01/21/21 18:36 Source: patient and RN notes reviewed Mode of arrival: ambulatory Limitations: no limitations History of Present Illness HPI narrative: 65-year-old female presents to the [facility] with complaints of right wrist pain after tripping and falling with an outstretched arm when she was trying to get upstairs from her basement. Patient states that she tripped over a Tupperware tote. Pain is localized with swelling to the dorsal aspect and at the anatomical snuffbox right wrist. No treatment prior to arrival. Did not hit head. No loss of consciousness. Full range of motion of the elbow and shoulder. Decreased range of motion of the wrist secondary to pain Related Data Home Medications Medication Instructions Recorded Confirmed Betimol 1 drp OPHTHALMIC (EYE) BID 07/05/20 01/21/21 levothyroxine 100 mcg PO DAILY 07/05/20 01/21/21 Allergies Allergy/AdvReac Type Severity Reaction Status Date / Time codeine Allergy Unknown Confusion Verified 01/21/21 18:40 diphenhydramine Allergy Unknown Nausea/hive Verified 01/21/21 18:40 s nitrofurantoin Allergy Unknown Nausea Verified 01/21/21 18:40 tramadol Allergy Unknown Nausea and Verified 01/21/21 18:40 Vomiting Review of Systems Review of Systems: All systems reviewed & are unremarkable except as noted in HPI and below Constitutional: Constitutional: Reports no additional constitutional complaints, Denies chills, Denies fatigue, Denies fever(s) and Denies weakness Eyes: Eyes: Reports no additional eye complaints ENT: Reports system reviewed and no additional complaints, except as documented, Denies epistaxis and Denies sore throat Cardiovascular: Cardiovascular: Reports no additional cardiovascular complaints and Denies chest pain Respiratory: Respiratory: Reports no additional respiratory complaints, Denies cough and Denies dyspnea Gastrointestinal: Gastrointestinal: Reports no additional gastrointestinal complaints, Denies abdominal pain, Denies nausea and Denies vomiting Musculoskeletal: Musculoskeletal: Reports as per HPI, Reports arthralgias (Right wrist) and Reports joint swelling (Dorsal aspect right wrist) Integumentary/Breasts: Skin/Breast: Reports system reviewed and no additional complaints, except as docu Neurologic: Reports system reviewed and no additional complaints, except as documented Psychiatric: Psychiatric: Reports no additional psychiatric complaints Allergic/Immunologic: Allergic/Immunologic: Reports no additional allergic/immunologic complaints [facility] Past Medical History Medical History Diverticulitis Hypothyroidism Overweight Surgical History Surgical History History of cholecystectomy History of surgery (~03/04/19) IM Nailing Lt Distal Tibial Shaft Family History Family History Grandparent Diabetes mellitus Social History Social History Smoking status: Never smoker Second hand tobacco smoke exposure: No Alcohol intake: never Gender identity (if verbalized by the patient): Female Spiritual care concerns: No Exam Const: General: healthy appearing, no acute distress and alert Nutritional Appearance: well nourished Orientation/consciousness: patient oriented x3 Limitations: no limitations HENMT: Head: normal to inspection Eyes: Pupils: Equal, round and reactive pupils present Neck: Neck: normal visual inspection, no lymphadenopathy and no meningeal signs Chest: Chest palpation & inspection: normal inspection of the chest Resp: Effort & Inspection: normal respiratory effort and no use of accessory muscles Auscultation: clear to auscultation bilaterally, no crackles, no rales
[2021-01-21 18:39] VITALS: BP 123/83; PULSE 99; RESP 18; TEMP 36.7; O2SAT 99
[2021-01-21 18:41] VITALS: BP 123/83; PULSE 99; RESP 18; TEMP 36.7; O2SAT 99
== END 2021-01-21 19:19 | disposition home or self-care (01) ==
PROVIDERS: Emergency Provider Nurse Practitioner; PCP Physician Assistant
DX: M25.531 Pain in right wrist (principal); E03.9 Hypothyroidism, unspecified
CPT/HCPCS: 29125; 73110; 99213; A4565; G0463

== ENCOUNTER 2021-01-25 11:21 | Outpatient (CLI) | payer OTHER, SELFPAY ==
--- NOTE | ~2021-01-25 | XR_ITS ---
EXAMINATION: XR chest 2V 01/25/2021 11:44 INDICATION: Cough and shortness of breath with exertion PROCEDURE: PA and lateral views of the chest COMPARISON: Calcified granuloma left lower lung zone. FINDINGS: The lungs are clear. The cardiomediastinal silhouette is within normal limits. There are no pleural effusions. There is no pneumothorax suspected. IMPRESSION: 1: NO ACUTE CARDIOPULMONARY DISEASE. Reviewed, dictated and finalized at location A.
== END 2021-01-25 11:22 | disposition home or self-care (01) ==
LOC: ANHIMG 11:25
PROVIDERS: PCP Physician Assistant; Visit Provider Physician Assistant
DX: R05 Cough (principal)
CPT/HCPCS: 71046

== ENCOUNTER 2021-01-31 09:15 | Outpatient (CLI) | payer OTHER, SELFPAY ==
[2021-01-31 10:07] LABS: Basophils Percent Auto 0.4 % (0.2-1.2); Eosinophils Absolute Auto 0.1 K/mm3 (0-0.3); Eosinophils Percent Auto 2.4 % (0-4.4); Hematocrit 40.9 % (37.0-47.0); Hemoglobin 13.2 g/dL (12.0-15.0); Immature Granulocyte Absolute 0.02 K/mm3 (0.00-0.031); Immature Granulocyte Percent A 0.4 % (0-0.5); Lymphocytes Absolute Auto 1.29 K/mm3 (0.9-3.2); Lymphocytes Percent Auto 23.8 % (18.3-44.2); Mean Corpuscular HGB Conc 32.3 g/dl (32-36); Mean Corpuscular Hemoglobin 29.2 pg (26-34); Mean Corpuscular Volume 90.5 fl (80-100); Mean Platelet Volume 11.6 fl (7.4-10.4); Monocytes Absolute Auto 0.5 K/mm3 (0.1-0.6); Neutrophils Absolute Auto 3.4 K/mm3 (1.3-6.7); Platelet Count Result 266 k/mm3 (150-375); Red Blood Count 4.52 M/mm3 (4.2-5.4); Red Cell Distribution Width 12.8 % (11.5-14.5); White Blood Count 5.4 K/mm3 (4.5-10.0)
[2021-01-31 10:21] LABS: Rheumatoid Factor < 8.6 IU/ML (<12)
[2021-01-31 10:22] LABS: Alanine Aminotransferase 27 U/L (4-35); Albumin Level 4.4 g/dL (3.5-5.1); Alkaline Phosphatase 83 U/L (38-126); Anion Gap 8 mmol/L (8-16); Aspartate Amino Transferase 31 U/L (14-36); Bilirubin,Total 0.6 mg/dL (0.2-1.3); Blood Urea Nitrogen 12 mg/dL (7-17); Calcium 9.6 mg/dL (8.4-10.2); Carbon Dioxide 26 mmol/L (22-30); Chloride 107 mmol/L (98-107); Cholesterol 242 mg/dL (0-200); Estimated Glomerular Filt Rate 56; Glucose 89 mg/dL (65-105); HDL Direct 54 mg/dL; Potassium 4.6 mmol/L (3.4-5.0); Sodium 141 mmol/L (137-145); Triglycerides 113 mg/dL (<150)
[2021-01-31 10:25] LABS: Hemoglobin A1C 5.3 % (<5.7)
[2021-01-31 10:32] LABS: LDL Cholesterol Direct 120 mg/dL
[2021-01-31 10:49] LABS: Thyroid Stimulating Hormone 0.084 uIU/mL (0.465-4.680)
[2021-01-31 11:06] LABS: Free T4 Free Thyroxine 1.42 ng/mL (0.78-2.19)
[2021-01-31 15:28] LABS: Add Urine Microscopic? YES; Appearance Urine Clear (Clear); Bacteria Urine Trace /hpf; Bilirubin Urine Negative (Negative); Blood Urine Negative (Negative); Color Urine Yellow (Yellow); Glucose Urine UA Negative (Negative); Ketones Urine Negative (Negative); Leukocyte Esterase Ur Trace LEU/UL (NEGATIVE); Mucus Urine Moderate /lpf; Nitrate Urine Negative (Negative); Protein Urine 1+ mg/dL (Negative); RBC Urine 0-2 /hpf (0-2); Specific Grav Ur 1.019 (1.001-1.035); Squamous Epithelial Cell Urine Few /hpf (Few); Urobilinogen Urine Negative mg/dL (<2.0); WBC Urine 0-3 /hpf (0-3)
[2021-02-03 22:38] LABS: Anti Nuclear Antibody Titer 1:40 (Negative)
== END 2021-01-31 09:16 | disposition home or self-care (01) ==
PROVIDERS: PCP Physician Assistant; Visit Provider Physician Assistant
DX: E03.9 Hypothyroidism, unspecified (principal); M25.50 Pain in unspecified joint; Z79.899 Other long term (current) drug therapy; Z13.1 Encounter for screening for diabetes mellitus; Z13.220 Encounter for screening for lipoid disorders
CPT/HCPCS: 36415; 80048; 80061; 80076; 81001; 83036; 84439; 84443; 85025; 86038; 86039; 86430

== ENCOUNTER 2021-07-12 09:37 | Outpatient (CLI) | payer OTHER, SELFPAY ==
[2021-07-12 11:11] LABS: Basophils Percent Auto 0.9 % (0.2-1.2); Eosinophils Absolute Auto 0.1 K/mm3 (0-0.3); Eosinophils Percent Auto 2.2 % (0-4.4); Hematocrit 40.2 % (37.0-47.0); Hemoglobin 13.2 g/dL (12.0-15.0); Immature Granulocyte Absolute 0.01 K/mm3 (0.00-0.031); Immature Granulocyte Percent A 0.2 % (0-0.5); Lymphocytes Absolute Auto 1.33 K/mm3 (0.9-3.2); Lymphocytes Percent Auto 28.9 % (18.3-44.2); Mean Corpuscular HGB Conc 32.8 g/dl (32-36); Mean Corpuscular Hemoglobin 30.6 pg (26-34); Mean Corpuscular Volume 93.1 fl (80-100); Mean Platelet Volume 12.1 fl (7.4-10.4); Monocytes Absolute Auto 0.4 K/mm3 (0.1-0.6); Monocytes Percent Auto 9.6 % (2.6-8.5); Neutrophils Absolute Auto 2.7 K/mm3 (1.3-6.7); Neutrophils Percent Auto 58.2 % (45.5-73.1); Platelet Count Result 244 k/mm3 (150-375); Red Blood Count 4.32 M/mm3 (4.2-5.4); Red Cell Distribution Width 12.4 % (11.5-14.5); White Blood Count 4.6 K/mm3 (4.5-10.0)
[2021-07-12 11:27] LABS: Alanine Aminotransferase 23 U/L (4-35); Albumin Level 4.7 g/dL (3.5-5.1); Alkaline Phosphatase 94 U/L (38-126); Anion Gap 8 mmol/L (8-16); Aspartate Amino Transferase 27 U/L (14-36); Bilirubin,Total 0.6 mg/dL (0.2-1.3); Blood Urea Nitrogen 15 mg/dL (7-17); CRP < 0.5 mg/dL (<1.0); Calcium 9.1 mg/dL (8.4-10.2); Carbon Dioxide 24 mmol/L (22-30); Chloride 105 mmol/L (98-107); Creatine Kinase 86 U/L (30-135); Estimated Glomerular Filt Rate > 60; Glucose 80 mg/dL (65-110); Lactate Dehydrogenase 490 U/L (313-618); Potassium 4.5 mmol/L (3.4-5.0); Sodium 137 mmol/L (137-145)
[2021-07-12 12:05] LABS: Erythrocyte Sedimentation Rate 16 mm/hr (0-20)
[2021-07-12 15:27] LABS: Add Urine Microscopic? NO; Appearance Urine Clear (Clear); Bilirubin Urine Negative (Negative); Blood Urine Negative (Negative); Color Urine Yellow (Yellow); Glucose Urine UA Negative (Negative); Ketones Urine Negative (Negative); Leukocyte Esterase Ur Negative LEU/UL (NEGATIVE); Nitrate Urine Negative (Negative); Protein Urine Negative (Negative); Specific Grav Ur 1.015 (1.001-1.035); Urobilinogen Urine Negative mg/dL (<2.0)
[2021-07-14 18:46] LABS: Chromatin Antibody <1.0; RNP Antibodies <1.0; SS-A <1.0; SS-B <1.0; Scleroderma 70 Antibody <1.0
[2021-07-14 21:34] LABS: Anti Cyclic Citrullinated Pept <16 Units (<20)
[2021-07-15 04:54] LABS: Thyroglobulin 2.9 ng/mL (2.8-40.9); Thyroglobulin Antibodies <1 IU/mL (<=1); Thyroid Peroxidase Antibodies 8 IU/mL (<9)
[2021-07-15 18:03] LABS: Anti Centromere B Antibody <1.0
[2021-07-15 22:09] LABS: Aldolase 4.6 U/L (<=8.1)
[2021-07-15 23:21] LABS: Anti Nuclear Antibody Titer 1:40 (Negative)
[2021-07-17 22:59] LABS: HLA B27 Negative (Negative)
== END 2021-07-12 09:38 | disposition home or self-care (01) ==
LOC: ANHLAB 09:42
PROVIDERS: PCP Physician Assistant; Visit Provider Internal Medicine Rheumatology
DX: M15.9 Polyosteoarthritis, unspecified (principal); R76.8 Other specified abnormal immunological findings in serum
CPT/HCPCS: 36415; 80053; 81003; 82085; 82550; 83516; 83615; 84432; 85025; 85652; 86038; 86039; 86140; 86200; 86225; 86235; 86376; 86800; 86812

== ENCOUNTER 2021-08-02 11:57 | Outpatient (CLI) | payer OTHER, SELFPAY ==
--- NOTE | ~2021-08-02 | MM_ITS ---
EXAMINATION: MM diagnostic david RT w jermaine HISTORY: Six-month follow-up for probably benign right breast asymmetry TECHNIQUE: Craniocaudal, mediolateral, and mediolateral oblique 3-D tomosynthesis images of the right breast were performed and synthetic 2-D images were generated. CAD analysis was submitted and interp reted. COMPARISON: 11/10/2020, 10/19/2020, 07/21/2019, 02/26/2018, 02/15/2017 BREAST PARENCHYMAL COMPOSITION: There are scattered areas of fibroglandular density. FINDINGS: There is no evidence of suspicious mass, calcification, or architectural distortion to sug gest malignancy. There has been no suspicious interval change. The previously described right breast asymmetry does not persist. IMPRESSION: 1. No mammographic evidence of malignancy. 2. Routine screening mammography is recommended, due in six months. BI-RADS Category 1: Negative Reviewed, dictated and finalized at location A. TECHNICIAN
== END 2021-08-02 11:58 | disposition home or self-care (01) ==
LOC: ANHIMG 11:59
PROVIDERS: PCP Physician Assistant; Visit Provider Obstetrics & Gynecology
DX: R92.8 Other abnormal and inconclusive findings on diagnostic imaging of breast (principal)
CPT/HCPCS: 77061; 77065; G0279

== ENCOUNTER 2021-12-19 16:31 | Outpatient (CLI) | payer OTHER, SELFPAY ==
[2021-12-19 17:03] LABS: Basophils Absolute Auto 0.1 K/mm3 (0.0-0.1); Basophils Percent Auto 0.7 % (0.2-1.2); Eosinophils Absolute Auto 0.1 K/mm3 (0-0.3); Eosinophils Percent Auto 1.9 % (0-4.4); Hematocrit 38.9 % (37.0-47.0); Hemoglobin 12.3 g/dL (12.0-15.0); Immature Granulocyte Absolute 0.01 K/mm3 (0.00-0.031); Immature Granulocyte Percent A 0.1 % (0-0.5); Lymphocytes Absolute Auto 2.07 K/mm3 (0.9-3.2); Lymphocytes Percent Auto 30.5 % (18.3-44.2); Mean Corpuscular HGB Conc 31.6 g/dl (32-36); Mean Corpuscular Volume 94.9 fl (80-100); Mean Platelet Volume 11.9 fl (7.4-10.4); Monocytes Absolute Auto 0.7 K/mm3 (0.1-0.6); Monocytes Percent Auto 10.8 % (2.6-8.5); Neutrophils Absolute Auto 3.8 K/mm3 (1.3-6.7); Platelet Count Result 237 k/mm3 (150-375); Red Cell Distribution Width 12.8 % (11.5-14.5); White Blood Count 6.8 K/mm3 (4.5-10.0)
[2021-12-19 17:07] LABS: Alanine Aminotransferase 20 U/L (6-35); Aspartate Amino Transferase 27 U/L (14-36); Blood Urea Nitrogen 19 mg/dL (7-17); Estimated Glomerular Filt Rate 50
== END 2021-12-19 16:32 | disposition home or self-care (01) ==
PROVIDERS: PCP Physician Assistant; Visit Provider Internal Medicine Rheumatology
DX: Z51.81 Encounter for therapeutic drug level monitoring (principal); M15.9 Polyosteoarthritis, unspecified; Z79.899 Other long term (current) drug therapy
CPT/HCPCS: 36415; 82565; 84450; 84460; 84520; 85025

== ENCOUNTER 2022-01-23 22:05 | Emergency (ER) | payer OTHER, SELFPAY ==
--- NOTE | ~2022-01-23 | CT_ITS ---
EXAMINATION: CT abdomen pelvis w con DATE: 01/23/2022 23:27 INDICATION: Left lower quadrant abdominal pain. TECHNIQUE: Computed tomography (CT) of the abdomen and pelvis was performed with 100 mL Omnipaque 300 intravenous contrast. Automated exposure control and iterative reconstruction technique were employe d. The dose-length product was 419.86 mGy-cm. COMPARISON: CT abdomen and pelvis 03/01/2020 FINDINGS: The visualized portions of the lung bases demonstrate mild atelectasis. Calcified left lung nodules are consistent with old granulomatous disease. No pleural effusion. The heart size is normal . No pericardial effusion. The liver is normal. There are changes of cholecystectomy. Calcifications in the spleen are consistent with old granulomatous disease. The pancreas, adrenal glands, and kidney s are normal. There is an umbilical hernia containing fat. There are scattered diverticula in the col on. There is fat stranding around a sigmoid diverticulum, consistent with diverticulitis. The appendi x is normal. There are no dilated loops of bowel. There are no pathologically enlarged lymph nodes. T here is a small volume of pelvic ascites. There is severe lower lumbar spondylosis. IMPRESSION: 1. Acute sigmoid diverticulitis. No perforation or abscess. 2. Small volume of pelvic ascites. Reviewed, dictated and finalized at location B.
[2022-01-23 22:08] VITALS: BP 153/75; PULSE 86; RESP 18; TEMP 36.5; O2SAT 100
[2022-01-23] MEDS: SODIUM CHLORIDE 0.9% IV 1,000 ML 150 ML IV CONT (22:45)
[2022-01-23] MEDS: ONDANSETRON INJ 4 MG/2 ML VIAL IV PUSH (22:45)
[2022-01-23] MEDS: HYDROmorphone HCL INJ (*CRX) 1 MG/ML SYR 0.5 MG IV PUSH (22:46)
[2022-01-23 23:04] LABS: Basophils Percent Auto 0.4 % (0.2-1.2); Eosinophils Absolute Auto 0.1 K/mm3 (0-0.3); Eosinophils Percent Auto 0.7 % (0-4.4); Hematocrit 38.5 % (37.0-47.0); Hemoglobin 12.6 g/dL (12.0-15.0); Immature Granulocyte Absolute 0.02 K/mm3 (0.00-0.031); Immature Granulocyte Percent A 0.2 % (0-0.5); Lymphocytes Absolute Auto 1.22 K/mm3 (0.9-3.2); Lymphocytes Percent Auto 12.1 % (18.3-44.2); Mean Corpuscular HGB Conc 32.7 g/dl (32-36); Mean Corpuscular Hemoglobin 30.6 pg (26-34); Mean Corpuscular Volume 93.4 fl (80-100); Mean Platelet Volume 12.2 fl (7.4-10.4); Monocytes Absolute Auto 1.1 K/mm3 (0.1-0.6); Monocytes Percent Auto 11.2 % (2.6-8.5); Neutrophils Absolute Auto 7.6 K/mm3 (1.3-6.7); Neutrophils Percent Auto 75.4 % (45.5-73.1); Platelet Count Result 234 k/mm3 (150-375); Red Blood Count 4.12 M/mm3 (4.2-5.4); Red Cell Distribution Width 12.5 % (11.5-14.5); White Blood Count 10.1 K/mm3 (4.5-10.0)
--- NOTE | 2022-01-23 23:07 | PC.NURSE ---
pt reports unable to provide urine sample at this time
[2022-01-23 23:15] LABS: Alanine Aminotransferase 20 U/L (6-35); Albumin Level 4.6 g/dL (3.5-5.1); Alkaline Phosphatase 95 U/L (38-126); Anion Gap 5 mmol/L (8-16); Aspartate Amino Transferase 24 U/L (14-36); Bilirubin,Total 0.5 mg/dL (0.2-1.3); Blood Urea Nitrogen 21 mg/dL (7-17); Calcium 8.7 mg/dL (8.4-10.2); Carbon Dioxide 25 mmol/L (22-30); Chloride 107 mmol/L (98-107); Estimated CRCL calculation 51 ml/min; Estimated Glomerular Filt Rate > 60; Glucose 106 mg/dL (65-110); Potassium 4.1 mmol/L (3.4-5.0); Sodium 137 mmol/L (137-145)
--- NOTE | 2022-01-24 00:29 | ED.ABDPAIN ---
HPI - Abdominal Pain General Chief Complaint: Abdominal Pain Stated Complaint: losing my uterus Time Seen by Provider: 01/23/22 22:13 Source: patient and family Mode of arrival: ambulatory Limitations: no limitations History of Present Illness HPI narrative: 66-year-old with a history of diverticulitis here with complaints of left lower abdominal pain for past 1 day. She denies any fever or chills. No history of nausea or vomiting. Denies any blood in the stool. MD elicited complaint: abdominal pain Pertinent past history: none Onset (ago): day(s) (1) Pain Consistency: constant Location: LLQ Severity: severe Quality: aching Radiation: none and suprapubic Exacerbating factors: nothing Relieving factors: nothing Associated symptoms: denies other symptoms Related Data Home Medications Medication Instructions Recorded Confirmed levothyroxine 100 mcg tablet 100 mcg PO DAILY 07/05/20 03/29/21 timolol 0.5 % eye drops (Betimol) 1 drp ophthalmic (eye) BID 07/05/20 03/29/21 citalopram 20 mg tablet tablet 01/23/22 meloxicam 15 mg tablet tablet 01/23/22 risedronate 150 mg tablet tablet PO 01/23/22 01/23/22 Allergies Allergy/AdvReac Type Severity Reaction Status Date / Time codeine Allergy Unknown Confusion Verified 01/23/22 22:06 diphenhydramine Allergy Unknown Nausea/hive Verified 01/23/22 22:06 s nitrofurantoin Allergy Unknown Nausea Verified 01/23/22 22:06 tramadol Allergy Unknown Nausea and Verified 01/23/22 22:06 Vomiting Review of Systems Review of Systems: All systems reviewed & are unremarkable except as noted in HPI and below Constitutional: Constitutional: Reports no additional constitutional complaints Eyes: Eyes: Reports no additional eye complaints ENT: Reports system reviewed and no additional complaints, except as documented Cardiovascular: Cardiovascular: Reports no additional cardiovascular complaints Respiratory: Respiratory: Reports no additional respiratory complaints Gastrointestinal: Gastrointestinal: Reports as per HPI Musculoskeletal: Musculoskeletal: Reports no additional musculoskeletal complaints Integumentary/Breasts: Skin/Breast: Reports system reviewed and no additional complaints, except as docu Neurologic: Reports system reviewed and no additional complaints, except as documented Psychiatric: Psychiatric: Reports no additional psychiatric complaints Endocrine: Endocrine: Reports no additional endocrine complaints PMFSH Past Medical History Medical History Diverticulitis Hypothyroidism Overweight Surgical History Surgical History History of cholecystectomy History of surgery (~03/04/19) IM Nailing Lt Distal Tibial Shaft Family History Family History Grandparent Diabetes mellitus Social History Social History Smoking status: Never smoker Second hand tobacco smoke exposure: No Alcohol intake: never Gender identity (if verbalized by the patient): Female Spiritual care concerns: No Exam Narrative: GENERAL: Well-appearing, well-nourished, and in no acute distress. HEAD: Normocephalic, atraumatic. EYES: PERRLA and EOMI. \NECK: Supple. CHEST: Clear to auscultation. No respiratory distress. HEART: Regular rate and rhythm. No murmur heard. Normal peripheral pulses. ABDOMEN: Soft, tender in the left lower quadrant, nondistended, normal active bowel sounds. EXTREMITIES: Normal range of motion. No edema. SKIN: Warm, dry, no rash. NEURO: No focal deficits. Alert and oriented x3. PSYCH: Normal mood and affect. Course Course Emergency Course: 66-year-old with a low lower abdominal pain she states the pain is 9/10 we will give her IV Dilaudid and do routine lab work and CT of the abdomen to rule out diverticulitis Pain is much improv
[2022-01-24 01:01] VITALS: BP 131/67; PULSE 89; RESP 16; O2SAT 96
== END 2022-01-24 01:03 | disposition home or self-care (01) ==
PROVIDERS: Emergency Provider Family Medicine; PCP Physician Assistant
DX: K57.32 Diverticulitis of large intestine without perforation or abscess without bleeding (principal); E03.9 Hypothyroidism, unspecified
CPT/HCPCS: 36415; 74177; 80053; 85025; 96361; 96374; 96375; 99284; J1170; J2405; J7030; Q9967

== ENCOUNTER 2022-04-14 18:28 | Emergency (ER) | payer OTHER, SELFPAY ==
[2022-04-14] VITALS (27 sets, daily range): BP systolic 143–175; BP diastolic 57–116; PULSE 81–96; RESP 11–31; TEMP 36.4; O2SAT 89–100
--- NOTE | ~2022-04-14 | CT_ITS ---
EXAMINATION: CT abdomen pelvis w con DATE: 04/14/2022 20:13 INDICATION: low abd pain, N/V in CT room before scan, hx diverticulitis TECHNIQUE: Computed tomography (CT) of the abdomen and pelvis was performed with 100 mL Omnipaque-350 intravenous contrast. Automated exposure control and iterative reconstruction technique were employe d. The dose-length product was 474.64 mGy-cm. COMPARISON: 01/23/2022. FINDINGS: Lower thorax: Unremarkable Liver: Normal. Biliary/Gallbladder: Gallbladder is absent. No bile duct dilation. Pancreas: No mass or duct dilation. Spleen: Normal. Adrenals:No mass. Kidneys: No mass. Punctate right upper pole calculus without obstruction. No hydronephrosis. Subcenti meter right upper pole hypodensity, too small to characterize. GI tract: Mild distal esophageal and antral wall edema as can be seen with esophagitis/gastritis. No bile cecum. No small or large bowel dilation. Normal appendix. Short segment pericolonic inflammatory change and wall thickening in the proximal sigmoid. Diverticulosis Mesentery/Peritoneum: No ascites, mass, or free air. Retroperitoneum: No mass. Pelvis: Pelvic organs are within normal limits. Soft Tissues: Uncomplicated, fat-containing umbilical and left lateral abdominal wall hernias. Bones: No acute osseous finding. IMPRESSION: Acute uncomplicated diverticulitis Reviewed, dictated and finalized at location K.
--- NOTE | 2022-04-14 19:21 | ED.ABDPAIN ---
HPI - Abdominal Pain General Chief Complaint: Abdominal Pain Stated Complaint: abdominal pain Time Seen by Provider: 04/14/22 19:01 History of Present Illness HPI narrative: Patient is a 66-year-old female who presents ER with bilateral lower quadrant abdominal pain. Began at 3 PM. It is increased in intensity. Sharp and burning. Worse with movement. Feels constipated. Has history of diverticulitis and this feels similar. She reports subjective fevers and chills. No vomiting. No urinary symptoms. No alleviating factors other than sitting still Related Data Home Medications Medication Instructions Recorded Confirmed levothyroxine 100 mcg tablet 100 mcg PO DAILY 07/05/20 03/29/21 timolol 0.5 % eye drops (Betimol) 1 drp ophthalmic (eye) BID 07/05/20 03/29/21 citalopram 20 mg tablet tablet 01/23/22 risedronate 150 mg tablet tablet PO 01/23/22 01/23/22 Allergies Allergy/AdvReac Type Severity Reaction Status Date / Time codeine Allergy Unknown Confusion Verified 04/14/22 18:47 diphenhydramine Allergy Unknown Nausea/hive Verified 04/14/22 18:47 s nitrofurantoin Allergy Unknown Nausea Verified 04/14/22 18:47 tramadol Allergy Unknown Nausea and Verified 04/14/22 18:47 Vomiting Review of Systems Review of Systems: All systems reviewed & are unremarkable except as noted in HPI and below Constitutional: Constitutional: Reports chills and Reports fever(s) ENT: Denies nasal congestion and Denies sore throat Cardiovascular: Cardiovascular: Denies chest pain and Denies rapid heart rate Gastrointestinal: Gastrointestinal: Reports abdominal pain, Reports constipation, Denies nausea and Denies vomiting Genitourinary: Genitourinary: Denies nocturia and Denies dysuria [facility] Past Medical History Medical History Diverticulitis Hypothyroidism Overweight Surgical History Surgical History History of cholecystectomy History of surgery (~03/04/19) IM Nailing Lt Distal Tibial Shaft Family History Family History Grandparent Diabetes mellitus Social History Social History Smoking status: Never smoker Second hand tobacco smoke exposure: No Alcohol intake: never Gender identity (if verbalized by the patient): Female Spiritual care concerns: No Exam Narrative: GENERAL: Well-appearing, well-nourished, and in no acute distress. HEAD: Normocephalic, atraumatic. CHEST: Clear to auscultation. No respiratory distress. HEART: Regular rate and rhythm. Normal peripheral pulses. ABDOMEN: Soft, bilateral lower quadrant tenderness with guarding, nondistended, normal active bowel sounds. EXTREMITIES: Normal range of motion. No edema. SKIN: Warm, dry, no rash. NEURO: Alert and oriented x3. PSYCH: Normal mood and affect. Course Course Emergency Course: Patient resting comfortably. Informed of results. Discharge home with oral antibiotics and pain medication. Vital Signs Vital signs: Vital Signs Temperature 97.6 F 04/14/22 18:29 Pulse Rate 82 04/14/22 18:29 Respiratory Rate 16 04/14/22 18:29 Blood Pressure 145/116 H 04/14/22 18:29 Pulse Oximetry 100 04/14/22 18:29 Oxygen Delivery Room Air 04/14/22 18:29 Temperature 97.6 F 04/14/22 18:29 Pulse Rate 85 04/14/22 18:45 Respiratory Rate 23 H 04/14/22 18:45 Blood Pressure 159/69 H 04/14/22 18:44 Pulse Oximetry 100 04/14/22 18:45 Oxygen Delivery Room Air 04/14/22 18:29 MDM - Abdominal Pain Lab Data Result diagrams: 04/14/22 19:23 04/14/22 19:23 Labs: Lab Results 04/14/22 04/14/22 04/14/22 Range/Units 19:23 19:23 19:35 WBC 11.6 H (4.5-10.0) K/mm3 RBC 4.18 L (4.2-5.4) M/mm3 Hgb 12.6 (12.0-15.0) g/dL Hct 39.2 (37.0-47.0) % MCV 93.8 (80-1
[2022-04-14 19:28] LABS: Basophils Percent Auto 0.3 % (0.2-1.2); Eosinophils Absolute Auto 0.1 K/mm3 (0-0.3); Eosinophils Percent Auto 0.7 % (0-4.4); Hematocrit 39.2 % (37.0-47.0); Hemoglobin 12.6 g/dL (12.0-15.0); Immature Granulocyte Absolute 0.03 K/mm3 (0.00-0.031); Immature Granulocyte Percent A 0.3 % (0-0.5); Lymphocytes Absolute Auto 1.18 K/mm3 (0.9-3.2); Lymphocytes Percent Auto 10.2 % (18.3-44.2); Mean Corpuscular HGB Conc 32.1 g/dl (32-36); Mean Corpuscular Hemoglobin 30.1 pg (26-34); Mean Corpuscular Volume 93.8 fl (80-100); Mean Platelet Volume 11.8 fl (7.4-10.4); Monocytes Absolute Auto 1.2 K/mm3 (0.1-0.6); Monocytes Percent Auto 10.3 % (2.6-8.5); Neutrophils Absolute Auto 9.1 K/mm3 (1.3-6.7); Neutrophils Percent Auto 78.2 % (45.5-73.1); Platelet Count Result 231 k/mm3 (150-375); Red Blood Count 4.18 M/mm3 (4.2-5.4); Red Cell Distribution Width 12.9 % (11.5-14.5); White Blood Count 11.6 K/mm3 (4.5-10.0)
[2022-04-14] MEDS: MORPHINE SULFATE (*CRX) 4 MG/ML INJ IV PUSH (19:32)
[2022-04-14 19:40] LABS: Alanine Aminotransferase 22 U/L (6-35); Albumin Level 4.5 g/dL (3.5-5.1); Alkaline Phosphatase 114 U/L (38-126); Anion Gap 8 mmol/L (8-16); Aspartate Amino Transferase 29 U/L (14-36); Bilirubin,Total 0.4 mg/dL (0.2-1.3); Blood Urea Nitrogen 20 mg/dL (7-17); Calcium 9.4 mg/dL (8.4-10.2); Carbon Dioxide 27 mmol/L (22-30); Chloride 103 mmol/L (98-107); Estimated CRCL calculation 46 ml/min; Estimated Glomerular Filt Rate 50; Glucose 111 mg/dL (65-110); Lipase 139 U/L (23-300); Potassium 4.3 mmol/L (3.4-5.0); Sodium 138 mmol/L (137-145)
[2022-04-14 19:43] LABS: Appearance Urine Clear (Clear); Bilirubin Urine Negative (Negative); Blood Urine Negative (Negative); Color Urine Yellow (Yellow); Glucose Urine UA Negative (Negative); Ketones Urine Negative (Negative); Leukocyte Esterase Ur 1+ LEU/UL (Negative); Nitrate Urine Negative (Negative); Protein Urine Negative (Negative); Specific Grav Ur 1.015 (1.001-1.035)
[2022-04-14 20:16] LABS: Add Urine Microscopic? YES
[2022-04-14 20:17] LABS: RBC Urine 0-2 /hpf (0-2)
[2022-04-14 20:18] LABS: Bacteria Urine None seen /hpf; Squamous Epithelial Cell Urine Few /hpf (Few)
[2022-04-14] MEDS: CIPROFLOXACIN 500 MG TAB PO (21:26)
[2022-04-14] MEDS: metroNIDAZOLE 250 MG TABLET 500 MG PO (21:27)
== END 2022-04-14 22:01 | disposition home or self-care (01) ==
PROVIDERS: Emergency Provider Emergency Medicine; PCP Physician Assistant
DX: K57.92 Diverticulitis of intestine, part unspecified, without perforation or abscess without bleeding (principal); E03.9 Hypothyroidism, unspecified
CPT/HCPCS: 36415; 74177; 80053; 81001; 83690; 85025; 96374; 99284; A9270; J2270; Q9967

== ENCOUNTER 2022-05-08 00:50 | Day surgery (SDC) | payer OTHER, SELFPAY ==
[2022-04-26 09:37] VITALS: BMI 27.8
--- NOTE | 2022-05-07 17:54 | PM.HPGS ---
History of Present Illness History of Present Illness Consent: Risks, benefits, and alternatives have been discussed and questions answered. Patient agrees to proceed with procedure. Chief complaint: gastritis, diverticulitis Narrative: Flori Bauer is a 66 year old female was been having tenderness in the epigastric area. A recent CT scan showed thickening in the esophagus. This would suggest possible esophagitis, less likely esophageal malignancy. She has had multiple episodes of diverticulitis in the last couple of years. She also has a persistent nearly constant discomfort in the epigastric area. Review of Systems Review of Systems: All systems reviewed & are unremarkable except as noted in HPI and below PMFSH Past Medical History Medical History Arthritis Diverticulitis Hypothyroidism Overweight Surgical History Surgical History History of cholecystectomy History of surgery (~03/04/19) IM Nailing Lt Distal Tibial Shaft Family History Family History Grandparent Diabetes mellitus Social History Social History Smoking status: Never smoker Second hand tobacco smoke exposure: No Alcohol intake: never Substance use: never Substance use type: does not use Living arrangements: with family Gender identity (if verbalized by the patient): Female Spiritual care concerns: No Meds Home Medications and Allergies Home Medications Medication Instructions Recorded Confirmed Type levothyroxine 100 mcg tablet 100 mcg PO DAILY 07/05/20 05/08/22 History timolol 0.5 % eye drops (Betimol) 1 drp ophthalmic (eye) BID 07/05/20 05/08/22 History citalopram 20 mg tablet 20 tablet PO DAILY 01/23/22 05/08/22 History risedronate 150 mg tablet 1 tablet PO MONTHLY 01/23/22 05/08/22 History ciprofloxacin HCl 500 mg tablet 500 mg PO Q12H #14 tabs 04/14/22 05/08/22 Rx (Cipro) docusate sodium 100 mg capsule 100 mg PO DAILY #7 caps 04/14/22 05/08/22 Rx (Colace) metronidazole 500 mg tablet 500 mg PO Q8H #21 tabs 04/14/22 05/08/22 Rx Allergies Allergy/AdvReac Type Severity Reaction Status Date / Time diphenhydramine Allergy Unknown Nausea/hive Verified 05/08/22 12:22 s codeine AdvReac Unknown Confusion Verified 05/08/22 12:24 nitrofurantoin AdvReac Unknown Nausea Verified 05/08/22 12:24 tramadol AdvReac Unknown Nausea and Verified 05/08/22 12:24 Vomiting Exam Const: General: alert Orientation/consciousness: patient oriented x3 Resp: Auscultation: clear to auscultation bilaterally Cardio: Rhythm: regular rhythm GI: GI Palp: Yes Soft to palpation and No Tenderness to palpation present (GI) Neuro: General: patient oriented x3 Assessment and Plan Assessment and plan (1) Abnormal CT scan, gastrointestinal tract: Code(s): R93.3 - Abnormal findings on diagnostic imaging of other parts of digestive tract Status: Acute Assessment and Plan: EGD with possible biopsy or dilatation or cautery. (2) Diverticulitis: Code(s): K57.92 - Diverticulitis of intestine, part unspecified, without perforation or abscess without bleeding Status: Acute Assessment and Plan: Colonoscopy with possible biopsy or polypectomy or cautery or injection of substances.
[2022-05-08 12:23] VITALS: BP 152/67; PULSE 67; RESP 16; TEMP 36.5; O2SAT 100
[2022-05-08] MEDS: LACTATED RINGERS 1,000 ML 150 ML IV CONT (12:25)
--- NOTE | 2022-05-08 12:32 | WPDANESEPPF ---
Anes - Initial Pre Proc Eval Procedure: Operation Date: 05/08/22 13:45 Proposed Procedures p Esophagogastroduodenoscopy & Colonoscopy - Chance Anand MD Date/Time: 05/08/22 12:32 Surgeon: Chance Anand MD Pre Op Diagnosis: gastritis, diverticulitis Patient Data Age: 66 Gender: F Height: 1.65 m Weight: 73.5 kg Last Vital Signs Temp 36.5 C 05/08/22 12:23 Pulse 67 05/08/22 12:23 Resp 16 05/08/22 12:23 BP 152/67 H 05/08/22 12:23 Pulse Ox 100 05/08/22 12:23 O2 Del Method Room Air 05/08/22 12:23 Allergies Allergy/AdvReac Type Severity Reaction Status Date / Time diphenhydramine Allergy Unknown Nausea/hive Verified 05/08/22 12:22 s codeine AdvReac Unknown Confusion Verified 05/08/22 12:24 nitrofurantoin AdvReac Unknown Nausea Verified 05/08/22 12:24 tramadol AdvReac Unknown Nausea and Verified 05/08/22 12:24 Vomiting Home Medications Medication Instructions Recorded Confirmed Type levothyroxine 100 mcg tablet 100 mcg PO DAILY 07/05/20 05/08/22 History timolol 0.5 % eye drops (Betimol) 1 drp ophthalmic (eye) BID 07/05/20 05/08/22 History citalopram 20 mg tablet 20 tablet PO DAILY 01/23/22 05/08/22 History risedronate 150 mg tablet 1 tablet PO MONTHLY 01/23/22 05/08/22 History ciprofloxacin HCl 500 mg tablet 500 mg PO Q12H #14 tabs 04/14/22 05/08/22 Rx (Cipro) docusate sodium 100 mg capsule 100 mg PO DAILY #7 caps 04/14/22 05/08/22 Rx (Colace) metronidazole 500 mg tablet 500 mg PO Q8H #21 tabs 04/14/22 05/08/22 Rx Patient hx anesthesia problems: none Family hx anesthesia problems: none Results Review: All pre-operative results and documents have been reviewed as part of the pre-operative evaluation. [facility] Past Medical History Medical History Arthritis Diverticulitis Hypothyroidism Overweight Surgical History Surgical History History of cholecystectomy History of surgery (~03/04/19) IM Nailing Lt Distal Tibial Shaft Family History Family History Grandparent Diabetes mellitus Social History Social History Smoking status: Never smoker Second hand tobacco smoke exposure: No Alcohol intake: never Substance use: never Substance use type: does not use Living arrangements: with family Gender identity (if verbalized by the patient): Female Spiritual care concerns: No Anes - Eval Final PreProcedure Day of Procedure 05/08/22 12:32 Patient weight: overweight Heart: regular rate and rhythm Lungs: clear to auscultation Airway: Mallampati scale class II Neurological: alert and oriented Last oral intake: >/= 8 hours ASA classification: II Emergent: no Anesthetic plan: proceed Anesthesia type and monitoring: general GIVS and standard monitoring Results Review: All pre-operative results and documents have been reviewed as part of the pre-operative evaluation. Informed Consent: The patient's anesthetic plan and its attendant risks and benefits were discussed with the patient/family/POA. Questions were solicited and answers provided to the satisfaction of the patient/family/POA.
--- NOTE | 2022-05-08 15:00 | SUR.OPER ---
EGD START 1427, END 1432 COLONOSCOPY START 1439, END 1456
[2022-05-08 15:04] VITALS: BP 147/97; PULSE 105; RESP 21; O2SAT 100
[2022-05-08 15:14] VITALS: BP 156/87; PULSE 82; RESP 19; O2SAT 99
[2022-05-08 15:24] VITALS: BP 163/92; PULSE 81; RESP 28; O2SAT 100
== END 2022-05-08 15:42 | disposition home or self-care (01) ==
PROVIDERS: PCP Physician Assistant; Visit Provider Internal Medicine Gastroenterology
PROC: 0DJ08ZZ Inspection of Upper Intestinal Tract, Via Natural or Artificial Opening Endoscopic (ICD-10-PCS; CPT 43235; principal; 2022-05-08 13:45)
DX: Z12.11 Encounter for screening for malignant neoplasm of colon (principal); K57.30 Diverticulosis of large intestine without perforation or abscess without bleeding; K22.2 Esophageal obstruction; K44.9 Diaphragmatic hernia without obstruction or gangrene; E03.9 Hypothyroidism, unspecified
CPT/HCPCS: 45378; 43239; 87081; 88305; J2704; J7120

== ENCOUNTER 2022-08-19 11:40 | Outpatient (CLI) | payer MEDICARE, SELFPAY ==
--- NOTE | ~2022-08-19 | XR_ITS ---
EXAMINATION: XR chest 2V DATE: 08/19/2022 12:06 INDICATION: Dyspnea on exertion TECHNIQUE: PA and lateral views of the chest are obtained. COMPARISON: 01/25/2021 FINDINGS: There is scarring of the lung apices. A stable nodule of the left lower lobe is consistent with old granulomatous disease. The lungs are free of acute opacities. No pleural effusion or pneumot horax. The cardiomediastinal silhouette is normal. There is mild thoracic spondylosis. Surgical clips in the right upper quadrant are likely from prior cholecystectomy. IMPRESSION: 1. No acute cardiopulmonary abnormality. Reviewed, dictated and finalized at location B. 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
== END 2022-08-19 11:41 | disposition home or self-care (01) ==
LOC: ANHIMG 11:51
PROVIDERS: PCP Physician Assistant; Visit Provider Physician Assistant
DX: R06.09 Other forms of dyspnea (principal)
CPT/HCPCS: 71046

== ENCOUNTER 2022-08-19 14:50 | Outpatient (CLI) | payer MEDICARE, SELFPAY ==
[2022-08-19 15:29] LABS: Basophils Percent Auto 0.5 % (0.2-1.2); Eosinophils Absolute Auto 0.1 K/mm3 (0-0.3); Eosinophils Percent Auto 1.5 % (0-4.4); Hematocrit 43.9 % (37.0-47.0); Hemoglobin 13.8 g/dL (12.0-15.0); Immature Granulocyte Absolute 0.02 K/mm3 (0.00-0.031); Immature Granulocyte Percent A 0.2 % (0-0.5); Lymphocytes Absolute Auto 2.86 K/mm3 (0.9-3.2); Lymphocytes Percent Auto 33.8 % (18.3-44.2); Mean Corpuscular HGB Conc 31.4 g/dl (32-36); Mean Corpuscular Hemoglobin 29.7 pg (26-34); Mean Corpuscular Volume 94.4 fl (80-100); Mean Platelet Volume 11.3 fl (7.4-10.4); Monocytes Absolute Auto 0.8 K/mm3 (0.1-0.6); Monocytes Percent Auto 8.9 % (2.6-8.5); Neutrophils Absolute Auto 4.7 K/mm3 (1.3-6.7); Neutrophils Percent Auto 55.1 % (45.5-73.1); Platelet Count Result 319 k/mm3 (150-375); Red Blood Count 4.65 M/mm3 (4.2-5.4); Red Cell Distribution Width 13.1 % (11.5-14.5); White Blood Count 8.5 K/mm3 (4.5-10.0)
[2022-08-19 15:37] LABS: Alanine Aminotransferase 23 U/L (6-35); Albumin Level 4.1 g/dL (3.5-5.1); Alkaline Phosphatase 82 U/L (38-126); Anion Gap 6 mmol/L (8-16); Aspartate Amino Transferase 22 U/L (14-36); Bilirubin,Total 0.6 mg/dL (0.2-1.3); Blood Urea Nitrogen 19 mg/dL (7-17); Calcium 8.3 mg/dL (8.4-10.2); Carbon Dioxide 29 mmol/L (22-30); Chloride 101 mmol/L (98-107); Estimated Glomerular Filt Rate > 60; Glucose 94 mg/dL (65-110); Potassium 4.3 mmol/L (3.4-5.0); Sodium 136 mmol/L (137-145)
[2022-08-19 15:53] LABS: D Dimer 0.71 ug/mL (<0.48)
== END 2022-08-19 14:51 | disposition home or self-care (01) ==
LOC: ANHLAB 14:54
PROVIDERS: PCP Physician Assistant; Visit Provider Physician Assistant
DX: R06.09 Other forms of dyspnea (principal)
CPT/HCPCS: 36415; 71046; 80048; 80076; 85025; 85380

== ENCOUNTER 2022-11-23 09:46 | Outpatient (CLI) | payer MEDICARE, SELFPAY ==
--- NOTE | ~2022-11-23 | MM_ITS ---
EXAMINATION: MM screening [facility] BI w jermaine HISTORY: Screening mammogram TECHNIQUE: Craniocaudal and mediolateral oblique 3-D tomosynthesis images were obtained and synthetic 2-D images were generated. CAD analysis was submitted and interpreted. COMPARISON: 08/02/2021, 11/10/2020, 10/19/2020, 07/21/2019 BREAST PARENCHYMAL COMPOSITION: There are scattered areas of fibroglandular density. FINDINGS: No suspicious mass, calcification, or architectural distortion are identified in either zeeshan ast to suggest malignancy. There has been no suspicious interval change. IMPRESSION: 1. No mammographic evidence of malignancy. 2. Recommend routine screening mammography in one year. BI-RADS Category 1: Negative Reviewed, dictated and finalized at location A.
== END 2022-11-23 09:47 | disposition home or self-care (01) ==
PROVIDERS: PCP Physician Assistant; Visit Provider Obstetrics & Gynecology
DX: Z12.31 Encounter for screening mammogram for malignant neoplasm of breast (principal)
CPT/HCPCS: 77063; 77067

== ENCOUNTER 2022-11-26 09:09 | Emergency (ER) | payer MEDICARE, SELFPAY ==
--- NOTE | ~2022-11-26 | CT_ITS ---
EXAMINATION: CT abdomen pelvis w con DATE: 11/26/2022 12:26 INDICATION: Left lower quadrant abdominal pain. History of diverticulitis. TECHNIQUE: Computed tomography (CT) of the abdomen and pelvis was performed with 100 CC nonionic Omni paque 350 intravenous contrast. Automated exposure control and iterative reconstruction technique wer e employed. Exam dose: 461.61 mGy-cm total exam DLP. COMPARISON: 04/14/2022 CT abdomen pelvis FINDINGS: Left lower lobe calcified granuloma. Slight discoid atelectasis in the lower lobes. Normal heart size. No pericardial or pleural effusion. Status post cholecystectomy. Bile duct caliber is within expected range of size postcholecystectomy. No hepatic space-occupying mass lesion is detected. There are numerous calcified splenic granulomas. No splenomegaly. No pancreatic mass lesion or calcification or pancreatic duct dilatation. Normal morphology of the adrenal glands. 4 mm upper pole right renal cyst. Pinpoint nonobstructing mid to upper right renal calculus. The left kidney appears normal. No ureteral calculus or hydroureteronephrosis. The urinary bladder is unremar kable. The uterus is retroverted. There is a prominent adnexal vessels, left greater than right. Ther e is moderate free fluid in the posterior cul-de-sac, extending into the right adnexal and to a lesse r extent left adnexal areas. No ovarian or adnexal mass lesion is evident. There is thickening of the wall of the mid sigmoid colon with pericolic fat stranding in this region, most likely due to sigmoid diverticulitis. This is more distal than the location of the diverticulit is present in the proximal sigmoid colon 04/14/2022. Normal appendix. No bowel obstruction or intraperitoneal free air is evident. Normal caliber of the abdominal aorta. No intraperitoneal or retroperitoneal or pelvic mass lesion or adenopathy. Small fat-containing umbilical hernia. IMPRESSION: Mid sigmoid diverticulitis, with moderate free fluid in the posterior cul-de-sac, extend ing into the adnexal areas, right greater than left Normal appendix Status post cholecystectomy Small right renal cyst Pinpoint nonobstructing right renal calculus Reviewed, dictated and finalized at [facility]. Reviewed, dictated and finalized at location L. 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
[2022-11-26 09:17] VITALS: BP 150/67; PULSE 75; RESP 18; TEMP 36.6; O2SAT 100
[2022-11-26 09:38] LABS: Basophils Percent Auto 0.3 % (0.2-1.2); Eosinophils Absolute Auto 0.1 K/mm3 (0-0.3); Eosinophils Percent Auto 0.4 % (0-4.4); Hemoglobin 13.9 g/dL (12.0-15.0); Immature Granulocyte Absolute 0.04 K/mm3 (0.00-0.031); Immature Granulocyte Percent A 0.3 % (0-0.5); Lymphocytes Absolute Auto 1.51 K/mm3 (0.9-3.2); Lymphocytes Percent Auto 13.2 % (18.3-44.2); Mean Corpuscular HGB Conc 32.3 g/dl (32-36); Mean Corpuscular Hemoglobin 30.6 pg (26-34); Mean Corpuscular Volume 94.7 fl (80-100); Monocytes Absolute Auto 1.3 K/mm3 (0.1-0.6); Neutrophils Absolute Auto 8.6 K/mm3 (1.3-6.7); Neutrophils Percent Auto 74.8 % (45.5-73.1); Platelet Count Result 234 k/mm3 (150-375); Red Blood Count 4.54 M/mm3 (4.2-5.4); Red Cell Distribution Width 12.4 % (11.5-14.5); White Blood Count 11.5 K/mm3 (4.5-10.0)
[2022-11-26 09:57] LABS: Appearance Urine Clear (Clear); Bacteria Urine None Seen /hpf; Bilirubin Urine Negative (Negative); Blood Urine Negative (Negative); Color Urine Yellow (Yellow); Glucose Urine UA Negative (Negative); Ketones Urine Negative (Negative); Leukocyte Esterase Ur 1+ LEU/UL (Negative); Need Manual Microscopic Reviewed; Nitrate Urine Negative (Negative); Non Pathogenic Casts 0-2; Protein Urine Negative (Negative); RBC Urine 0-2 /hpf (0-2); Specific Grav Ur 1.015 (1.001-1.035); Squamous Epithelial Cell Urine None seen /hpf (Few); Urobilinogen Urine 0.2 mg/dL (<2.0); WBC Urine 0-5 /hpf; pH Urine 5.5 (5.0-9.0)
[2022-11-26 09:58] LABS: Add Urine Microscopic? YES
[2022-11-26 10:01] LABS: Alanine Aminotransferase 22 U/L (6-35); Alkaline Phosphatase 97 U/L (38-126); Anion Gap 7 mmol/L (8-16); Aspartate Amino Transferase 34 U/L (14-36); Bilirubin,Total 0.8 mg/dL (0.2-1.3); Blood Urea Nitrogen 15 mg/dL (7-17); Calcium 9.1 mg/dL (8.4-10.2); Carbon Dioxide 26 mmol/L (22-30); Chloride 103 mmol/L (98-107); Estimated CRCL calculation 60 ml/min; Estimated Glomerular Filt Rate > 60; Glucose 95 mg/dL (65-110); Lipase 106 U/L (23-300); Potassium 4.4 mmol/L (3.4-5.0); Sodium 136 mmol/L (137-145)
--- NOTE | 2022-11-26 11:44 | ED.ABDPAIN ---
HPI - Abdominal Pain General Chief Complaint: Abdominal Pain Stated Complaint: abd pain Time Seen by Provider: 11/26/22 11:21 Source: patient Mode of arrival: ambulatory Limitations: no limitations History of Present Illness HPI narrative: This is a 67-year-old female presents the ED with chief complaint of left lower quadrant pain beginning at 1700 last night. She reports a history of multiple episodes of diverticulitis in the past. She states this feels the same. Reports the pain radiates throughout the lower abdomen. Denies any upper abdominal pain. Endorses some nausea but no vomiting. Denies diarrhea. Denies urinary symptoms or fevers. Related Data Home Medications Medication Instructions Recorded Confirmed levothyroxine 100 mcg tablet 100 mcg PO DAILY 07/05/20 05/08/22 timolol 0.5 % eye drops (Betimol) 1 drp ophthalmic (eye) BID 07/05/20 05/08/22 citalopram 20 mg tablet 20 tablet PO DAILY 01/23/22 05/08/22 risedronate 150 mg tablet 1 tablet PO MONTHLY 01/23/22 05/08/22 Allergies Allergy/AdvReac Type Severity Reaction Status Date / Time diphenhydramine Allergy Unknown Nausea/hive Verified 11/26/22 09:49 s codeine AdvReac Unknown Confusion Verified 11/26/22 09:49 nitrofurantoin AdvReac Unknown Nausea Verified 11/26/22 09:49 tramadol AdvReac Unknown Nausea and Verified 11/26/22 09:49 Vomiting Review of Systems Review of Systems: CONSTITUTIONAL: Denies fever, chills, or sweats. EYES: Denies visual changes, redness, or discharge. ENT: Denies rhinorrhea, congestion, sore throat, or otalgia. CARDIOVASCULAR: Denies chest pain, palpitations, or edema. RESPIRATORY: Denies cough or dyspnea. GASTROINTESTINAL: See HPI GENITOURINARY: Denies dysuria or hematuria. SKIN: Denies rash or itching. MUSCULOSKELETAL: Denies back pain, joint pain, or myalgia. NEUROLOGIC: Denies headache, numbness, dizziness, or weakness. PSYCHIATRIC: Denies anxiety or depression. [facility] Past Medical History Medical History Arthritis Diverticulitis Hypothyroidism Overweight Surgical History Surgical History History of cholecystectomy History of surgery (~03/04/19) IM Nailing Lt Distal Tibial Shaft Family History Family History Grandparent Diabetes mellitus Social History Social History Smoking status: Never smoker Second hand tobacco smoke exposure: No Alcohol intake: never Substance use: never Substance use type: does not use Living arrangements: with family Gender identity (if verbalized by the patient): Female Spiritual care concerns: No Exam Narrative: GENERAL: Well-appearing, well-nourished, and in no acute distress. HEAD: Normocephalic, atraumatic. EYES: PERRLA and EOMI. ENT: Nares clear, no rhinorrhea or epistaxis. Mucous membranes moist. Oropharynx without tonsillar hypertrophy exudate or other lesions. NECK: Supple. No adenopathy or masses. CHEST: No respiratory distress. Clear to auscultation. No wheezes rales or rhonchi HEART: Regular rate and rhythm. No murmur heard. Normal peripheral pulses. ABDOMEN: Left lower quadrant tenderness. Mild suprapubic tenderness. Negative peritoneal signs. Soft, otherwise nontender, nondistended, normal active bowel sounds. Negative McBurney's point. EXTREMITIES: Normal range of motion. No edema. SKIN: Warm, dry, no rash. NEURO: Alert and oriented x3. No focal deficits. PSYCH: Normal mood and affect. Course Vital Signs Vital signs: Vital Signs Temperature 98 F 11/26/22 09:17 Pulse Rate 75 11/26/22 09:17 Respiratory Rate 18 11/26/22 09:17 Blood Pressure 150/67 H 11/26/22 09:17 Pulse Oximetry 100 11/26/22 09:17 Oxygen Delivery Room Air 11/26/22 09:17 Temperature 98 F 11/26/22 09:17 Pulse Rate 75 11/26/22 0
[2022-11-26] MEDS: ONDANSETRON INJ 4 MG/2 ML VIAL IV PUSH (11:52)
[2022-11-26] MEDS: MORPHINE SULFATE (*CRX) 4 MG/ML INJ IV PUSH (11:53)
== END 2022-11-26 14:54 | disposition home or self-care (01) ==
PROVIDERS: Emergency Medicine; Emergency Provider Physician Assistant; PCP Physician Assistant
DX: K57.32 Diverticulitis of large intestine without perforation or abscess without bleeding (principal); E03.9 Hypothyroidism, unspecified; M19.90 Unspecified osteoarthritis, unspecified site; E66.3 Overweight; Z68.27 Body mass index [BMI] 27.0-27.9, adult
CPT/HCPCS: 36415; 74177; 80053; 81001; 83690; 85025; 96374; 96375; 99284; J2270; J2405; Q9967

== ENCOUNTER 2023-01-10 08:44 | Outpatient (CLI) | payer MEDICARE, SELFPAY ==
--- NOTE | ~2023-01-10 | DEXA_ITS ---
Bone Density Report Name: TACO DAUGHERTY Age: 67 Sex: Female Ethnicity: White Date of : 1955 Indication: osteopenia; parental hip fracture; height loss; prior fracture; postmenopausal Referring Provider: REBEL BRUMFIELD Study: Bone densitometry was performed. Exam Date: January 10, 2023 Accession number: [id number] Bone Density: Region BMD T-score Z-score Classification AP Spine(L1-L4) 0.891 -1.4 0.5 Osteopenia Femoral Neck (Left) 0.574 -2.5 -0.8 Osteoporosis Total Hip (Left) 0.756 -1.5 -0.2 Osteopenia Femoral Neck (Right) 0.585 -2.4 -0.7 Osteopenia Total Hip (Right) 0.812 -1.1 0.3 Osteopenia Total Hip Mean 0.784 -1.3 0.1 Osteopenia World Health Organization criteria for BMD impression classify patients as: Normal (T-score at or above -1.0), Osteopenia (T-score between -1.0 and -2.5), or Osteoporosis (T-score at or below -2.5). 10-year Fracture Risk: FRAX not reported because: Some T-score for Spine Total or Hip Total or Femoral Neck at or below -2.5 Previous Exams: Region Exam Age BMD T-score BMD Change BMD Change Date g/cm2 vs Baseline vs Previous AP Spine (L1-L4) 01/10/2023 67 0.891 -1.4 -0.024 (-2.6%) -0.025 (-2.7%) 07/21/2019 63 0.915 -1.2 0.001 (0.1%)# -0.021 (-2.2%) 02/15/2017 61 0.936 -1.0 0.021 (2.3%)# 0.021 (2.3%)# 10/13/2015 60 0.915 -1.2 0.001 (0.1%) 0.003 (0.3%)# 11/07/2014 59 0.912 -1.2 -0.002 (-0.3%) -0.002 (-0.3%) 09/30/2011 56 0.915 -1.2 Total Hip(Left) 01/10/2023 67 0.756 -1.5 -0.046 (-5.7%) -0.024 (-3.0%) 07/21/2019 63 0.779 -1.3 -0.022 (-2.8%) 0.029 (3.8%)* 02/15/2017 61 0.751 -1.6 -0.051 (-6.3%) -0.051 (-6.4%) 10/13/2015 60 0.801 -1.2 0.000 (0.0%) 0.038 (5.0%)# 11/07/2014 59 0.763 -1.5 -0.038 (-4.7%) -0.038 (-4.7%) 09/30/2011 56 0.801 -1.2 Total Hip(Right) 01/10/2023 67 0.812 -1.1 -0.001 (-0.1%) 0.004 (0.5%) 07/21/2019 63 0.808 -1.1 -0.005 (-0.6%) 0.006 (0.7%) 02/15/2017 61 0.802 -1.1 -0.010 (-1.3%) -0.039 (-4.7%) 10/13/2015 60 0.842 -0.8 0.029 (3.6%)* 0.037 (4.5%)# 11/07/2014 59 0.805 -1.1 -0.008 (-0.9%) -0.008 (-0.9%) 09/30/2011 56 0.813 -1.1 *Denotes significance at 95% confidence level, LSC for AP Spine = 0.022 g/cm2, LSC for Total Hip = 0.027 g/cm2 # Denotes dissimilar scan types or analysis methods Clinical Information Provided by Patient: Has had a low trauma fracture Parent has had a hip fracture Patient maximum height was 66
== END 2023-01-10 08:45 | disposition home or self-care (01) ==
LOC: ANHIMG 08:46
PROVIDERS: PCP Physician Assistant; Visit Provider Obstetrics & Gynecology
DX: Z13.820 Encounter for screening for osteoporosis (principal); M81.0 Age-related osteoporosis without current pathological fracture; Z78.0 Asymptomatic menopausal state
CPT/HCPCS: 77080

== ENCOUNTER 2023-03-09 14:29 | Emergency (ER) | payer MEDICARE, SELFPAY ==
--- NOTE | ~2023-03-09 | XR_ITS ---
EXAM: XR knee RT 3V DATE: 03/09/2023 15:06 HISTORY: fall YESTERDAY PAIN ANTERIOR KNEE . COMPARISON: None available. FINDINGS: Normal mineralization. No fracture or dislocation. No lytic or blastic lesion. Mild tricom partmental osteoarthritis. No erosion or periosteal change. Anterior soft tissue swelling. IMPRESSION: No acute osseous finding in the right knee. Reviewed, dictated and finalized at location K.
[2023-03-09 14:31] VITALS: BP 137/73; PULSE 82; RESP 16; TEMP 36.6; O2SAT 98
--- NOTE | 2023-03-09 15:37 | ED.LOWEXIN ---
HPI - Extremity Injury (Lower) General Chief Complaint: Extremity Injury, Lower Stated Complaint: R knee pain Time Seen by Provider: 03/09/23 15:28 History of Present Illness HPI Narrative: 67-year-old female with prior meniscal tear on right knee presents here after she tripped after slipping on water yesterday, and landed poorly on her right knee. Since then she has been limping and having more pain with flexion of the knee. No focal numbness or weakness Related Data Home Medications Medication Instructions Recorded Confirmed levothyroxine 100 mcg tablet 100 mcg PO DAILY 07/05/20 05/08/22 timolol 0.5 % eye drops (Betimol) 1 drp ophthalmic (eye) BID 07/05/20 05/08/22 citalopram 20 mg tablet 20 tablet PO DAILY 01/23/22 05/08/22 risedronate 150 mg tablet 1 tablet PO MONTHLY 01/23/22 05/08/22 Allergies Allergy/AdvReac Type Severity Reaction Status Date / Time diphenhydramine Allergy Unknown Nausea/hive Verified 11/26/22 09:49 s codeine AdvReac Unknown Confusion Verified 11/26/22 09:49 nitrofurantoin AdvReac Unknown Nausea Verified 11/26/22 09:49 tramadol AdvReac Unknown Nausea and Verified 11/26/22 09:49 Vomiting Review of Systems Review of Systems: M/S: Right knee pain SKIN: No rash. NEURO: [No focal numbness or weakness] PMFSH Past Medical History Medical History Arthritis Diverticulitis Hypothyroidism Overweight Surgical History Surgical History History of cholecystectomy History of surgery (~03/04/19) IM Nailing Lt Distal Tibial Shaft Family History Family History Grandparent Diabetes mellitus Social History Social History Smoking status: Never smoker Second hand tobacco smoke exposure: No Alcohol intake: never Substance use: never Substance use type: does not use Living arrangements: with family Gender identity (if verbalized by the patient): Female Spiritual care concerns: No Exam Narrative: EXAMINATION OF ORGAN SYSTEMS/BODY AREAS: Constitutional: Vital signs per nursing GENERAL:[No acute distress, non-toxic appearing.] HEAD: Normal with no signs of head trauma. EYES: EOMI, conjunctiva normal ENT: Hearing grossly intact LUNGS: Nonlabored breathing. HEART: [Regular rate and rhythm] EXT: Normal passive range of motion will pain with flexion, normal DP pulses, normal sensation, able to ambulate but with antalgic gait SKIN: [No rashes or lesions.] NEURO: [Alert and oriented x 3. No gross focal sensory or strength deficits.] PSYCH: Normal affect Course Vital Signs Vital signs: Vital Signs Temperature 97.9 F 03/09/23 14:31 Pulse Rate 82 03/09/23 14:31 Respiratory Rate 16 03/09/23 14:31 Blood Pressure 137/73 03/09/23 14:31 Pulse Oximetry 98 03/09/23 14:31 Oxygen Delivery Room Air 03/09/23 14:31 Temperature 97.9 F 03/09/23 14:31 Pulse Rate 82 03/09/23 14:31 Respiratory Rate 16 03/09/23 14:31 Blood Pressure 137/73 03/09/23 14:31 Pulse Oximetry 98 03/09/23 14:31 Oxygen Delivery Room Air 03/09/23 14:31 MDM - Extremity Injury (Lower) MDM Narrative Medical decision making narrative: This 67-year-old female with history of prior knee injuries presenting with mechanical fall leading to pain in her left knee, worse with flexion, on exam she is neurovascularly intact without any obvious deformity, x-ray obtained on my own independent interpretation for any obvious fractures. Confirmed by radiology. Patient placed in knee immobilizer and given crutches and follow-up to her orthopedic surgeon and came return for any further issues. I have let the patient know she will likely end up needing an MRI if she does not feel improved after several weeks. Discharge Plan Discharge Clinical Impression:
== END 2023-03-09 15:59 | disposition home or self-care (01) ==
PROVIDERS: Emergency Provider Emergency Medicine; PCP Physician Assistant
DX: S83.91XA Sprain of unspecified site of right knee, initial encounter (principal); E03.9 Hypothyroidism, unspecified; M17.11 Unilateral primary osteoarthritis, right knee; E66.3 Overweight; Z68.27 Body mass index [BMI] 27.0-27.9, adult; Z90.49 Acquired absence of other specified parts of digestive tract; W01.0XXA Fall on same level from slipping, tripping and stumbling without subsequent striking against object, initial encounter
CPT/HCPCS: 73562; 99283

== ENCOUNTER 2023-10-01 10:23 | Emergency (ER) | payer MEDICARE, SELFPAY ==
[2023-10-01] VITALS (13 sets, daily range): BP systolic 139–147; BP diastolic 74–95; PULSE 78–86; RESP 16–18; TEMP 36.3–36.6; O2SAT 95–100
--- NOTE | ~2023-10-01 | CT_ITS ---
EXAMINATION: CT abdomen pelvis w con INDICATION: Right lower quadrant pain TECHNIQUE: Computed tomographic images of the abdomen and pelvis were obtained after the administrati on of 100 cc of Omnipaque 350 intravenous contrast. The dose-length product (DLP) was 486.56 mGy-cm. Automated exposure control and iterative reconstruction technique were employed. COMPARISON: 11/26/2022 FINDINGS: Minimal dependent atelectasis is present in the lung bases. The heart size is normal. Punct ate calcifications in an otherwise normal spleen likely represent healed granulomatous disease. The g allbladder is surgically absent. There is mild enlargement of the common bile duct and central intrah epatic ducts which is likely due to post cholecystectomy state. The liver, pancreas, and adrenal glan ds are normal. The kidneys are unremarkable. There is diverticulosis of the sigmoid colon. There is m ild edematous stranding of the perisigmoid fat. A small volume of pelvic ascites is present. There ap pears to be mild reactive wall thickening of the left anterolateral bladder wall. No pathologically e nlarged abdominal or pelvic lymph nodes are identified. No free intraperitoneal gas or evidence of soila wel obstruction. There is severe lumbar spondylosis at L5-S1. IMPRESSION: 1. Uncomplicated acute sigmoid diverticulitis. Reviewed, dictated and finalized at location B. 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
--- NOTE | 2023-10-01 12:17 | ED.ABDPAIN ---
HPI - Abdominal Pain General Chief Complaint: Abdominal Pain Stated Complaint: ABD PAIN X2D Time Seen by Provider: 10/01/23 12:17 Source: patient Mode of arrival: ambulatory Limitations: no limitations History of Present Illness HPI narrative: 68 years old white female came from home by a car complaining of left lower quadrant pain started 2 days ago. Associated with chills, she denies any fever, nausea, vomiting, diarrhea, constipation urinary symptoms. History of diverticulitis, Related Data Home Medications Medication Instructions Recorded Confirmed levothyroxine 100 mcg tablet 100 mcg PO DAILY 07/05/20 03/28/23 timolol 0.5 % eye drops (Betimol) 1 drp ophthalmic (eye) BID 07/05/20 03/28/23 citalopram 20 mg tablet 20 tablet PO DAILY 01/23/22 03/28/23 risedronate 150 mg tablet 1 tablet PO MONTHLY 01/23/22 03/28/23 Allergies Allergy/AdvReac Type Severity Reaction Status Date / Time diphenhydramine Allergy Unknown Nausea/hive Verified 03/28/23 11:30 s codeine AdvReac Unknown Confusion Verified 03/28/23 11:30 nitrofurantoin AdvReac Unknown Nausea Verified 03/28/23 11:30 tramadol AdvReac Unknown Nausea and Verified 03/28/23 11:30 Vomiting Review of Systems Review of Systems: All systems reviewed & are unremarkable except as noted in HPI and below PMFSH Past Medical History Medical History Arthritis Diverticulitis Hypothyroidism Overweight Surgical History Surgical History History of cholecystectomy History of surgery (~03/04/19) IM Nailing Lt Distal Tibial Shaft Family History Family History Grandparent Diabetes mellitus Social History Social History Smoking status: Never smoker Second hand tobacco smoke exposure: No Alcohol intake: never Substance use: never Substance use type: does not use Lack of Transportation: No Lack of Food: Never True Current Housing: I Have Housing Concerned About Future Housing: No Difficulty Paying Gas/Electric Bills: No Difficulty Paying for Meds: No Currently Unemployed: No Education: High School Diploma/GED Difficulty w/ Childcare or Family Care: No Living arrangements: with family Gender identity (if verbalized by the patient): Female Spiritual care concerns: No Exam Narrative: General appearance: Well-developed, well-nourished Skin: Normal color Head: Normocephalic, nontraumatic Eyes: Clear conjunctiva ENT: Oropharynx normal, ears normal, nose normal Neck: Supple, nontender Chest and respiratory: Airway patent, no respiratory distress, no accessory muscle use Heart: Regular rate/rhythm Abdomen: Soft, severe tenderness left lower quadrant, positive rebound, no guarding, no organomegaly, quiet bowel sounds Vascular: Normal peripheral pulses, normal capillary refill. 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
[2023-10-01] MEDS: ONDANSETRON INJ 4 MG/2 ML VIAL IV PUSH (12:39)
[2023-10-01] MEDS: HYDROmorphone HCL INJ (*CRX) 1 MG/ML SYR 0.5 MG IV PUSH (12:40)
[2023-10-01] MEDS: SODIUM CHLORIDE 0.9% IV 1,000 ML 999 ML IV CONT (12:40)
[2023-10-01 12:52] LABS: Basophils Percent Auto 0.4 % (0.2-1.2); Eosinophils Absolute Auto 0.1 K/mm3 (0-0.3); Eosinophils Percent Auto 0.7 % (0-4.4); Hematocrit 43.8 % (37.0-47.0); Immature Granulocyte Absolute 0.02 K/mm3 (0.00-0.031); Immature Granulocyte Percent A 0.3 % (0-0.5); Lymphocytes Absolute Auto 1.05 K/mm3 (0.9-3.2); Lymphocytes Percent Auto 14.8 % (18.3-44.2); Mean Corpuscular Hemoglobin 29.6 pg (26-34); Mean Corpuscular Volume 92.6 fl (80-100); Mean Platelet Volume 12.3 fl (7.4-10.4); Monocytes Absolute Auto 0.8 K/mm3 (0.1-0.6); Monocytes Percent Auto 11.7 % (2.6-8.5); Neutrophils Absolute Auto 5.1 K/mm3 (1.3-6.7); Neutrophils Percent Auto 72.1 % (45.5-73.1); Platelet Count Result 226 k/mm3 (150-375); Red Blood Count 4.73 M/mm3 (4.2-5.4); Red Cell Distribution Width 12.6 % (11.5-14.5); White Blood Count 7.1 K/mm3 (4.5-10.0)
[2023-10-01 13:00] LABS: Prothrombin Time 13.3 Seconds (11.1-14.7)
[2023-10-01 13:00] LABS: Estimated CRCL calculation 54 ml/min; Estimated Glomerular Filt Rate > 60
[2023-10-01 13:01] LABS: Partial Thromboplastin Time 29.8 SECONDS (22.3-36.8)
[2023-10-01 13:02] LABS: Lactic Acid Reflex 1.3 mmol/L (0.7-2.0)
== END 2023-10-01 14:50 | disposition home or self-care (01) ==
PROVIDERS: Emergency Provider Emergency Medicine; PCP Physician Assistant
DX: K57.92 Diverticulitis of intestine, part unspecified, without perforation or abscess without bleeding (principal); M19.90 Unspecified osteoarthritis, unspecified site; E03.9 Hypothyroidism, unspecified
CPT/HCPCS: 36415; 74177; 83605; 85025; 85610; 85730; 96361; 96374; 96375; 99284; J1170; J2405; J7030; Q9967

== ENCOUNTER 2023-10-17 09:43 | Outpatient (CLI) | payer MEDICARE, SELFPAY ==
--- NOTE | ~2023-10-17 | CT_ITS ---
EXAMINATION: CT abdomen pelvis w con DATE: 10/17/2023 10:09 INDICATION: Diverticulitis TECHNIQUE: Computed tomography (CT) of the abdomen and pelvis was performed with 100 mL Omnipaque-350 intravenous contrast. Automated exposure control and iterative reconstruction technique were employe d. The dose-length product was 586.04 mGy-cm. COMPARISON: 10/01/2023 FINDINGS: Large calcite left lower lobe nodule consistent with old granulomatous disease. Heart size is normal. No pericardial or pleural effusion. Cholecystectomy clips the gallbladder fossa. Multiple splenic ca lcifications consistent with old granulomatous disease. Liver, pancreas, bilateral adrenal glands and kidneys are normal. There is mild colonic diverticulosis with a sigmoid predominance. There is no ad jacent inflammatory change to suggest diverticulitis. Small bowel and appendix are normal.. The left hemipelvis. Bladder is normal. Increased prominence of the left gonadal vein and parametrial vessels which can be seen with pelvic vascular congestion syndrome. Retroverted uterus and bilateral adnexa are otherwise unremarkable. IMPRESSION: 1. Mild diverticulosis without adjacent inflammatory change to suggest diverticulitis although this c an be radiographically occult. No acute intra-abdominal/pelvic process. Reviewed, dictated and finalized at location A. 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 Mild diverticulosis without adjacent inflammatory change to suggest divertic ulitis although this can be radiographically occult. No acute intra-abdominal/p elvic process.
== END 2023-10-17 09:44 ==
LOC: MICIMG 09:44
PROVIDERS: PCP Physician Assistant; Visit Provider Physician Assistant
DX: K57.30 Diverticulosis of large intestine without perforation or abscess without bleeding (principal)
CPT/HCPCS: 74177; Q9967

== ENCOUNTER 2024-02-11 06:27 | Emergency (ER) | payer MEDICARE, SELFPAY ==
[2024-02-11] VITALS (7 sets, daily range): BP systolic 115–149; BP diastolic 64–97; PULSE 87–99; RESP 14–23; TEMP 36.3; O2SAT 88–100
--- NOTE | ~2024-02-11 | CT_ITS ---
EXAMINATION: CT abdomen pelvis w con DATE: 02/11/2024 07:27 INDICATION: Left lower quadrant pain. TECHNIQUE: Computed tomography (CT) of the abdomen and pelvis was performed with 100 mL Omnipaque-350 intravenous contrast. Automated exposure control and iterative reconstruction technique were employe d. The dose-length product was 433.54 mGy-cm. COMPARISON: None FINDINGS: Calcified left lower lobe nodule and multiple small calcified splenic nodules consistent with old gra nulomatous disease. Heart size is normal. No pericardial or pleural effusion. Cholecystectomy clips t he gallbladder fossa. Liver, pancreas, bilateral adrenal glands and kidneys are normal. There is foca l wall thickening and inflammatory stranding surrounding a diverticulum at the distalmost descending colon consistent with diverticulitis. Minimal amount of likely reactive fluid in the left paracolic g utter and in the cul-de-sac. No abscess or free intraperitoneal gas to suggest perforation. Remainder the bowels including the appendix are normal. Bladder, retroverted uterus and right adnexa are unrem arkable. Again seen is increased prominence of the left gonadal vein and left parametrial and paraova sindy vessels which can be seen with pelvic vasculature congestion syndrome. No pathologically enlarge d abdominal or pelvic lymphadenopathy. Severe disc height loss at L5-S1. Otherwise mild lumbar and lo wer thoracic spondylosis. IMPRESSION: 1. Radiographically uncomplicated diverticulitis at the distal descending colon. Reviewed, dictated and finalized at location B. IMPRESSION: 1. Radiographically uncomplicated diverticulitis at the distal descending colon .
--- NOTE | 2024-02-11 06:35 | ECG_ITS ---
Test Date: 2024-02-11 06:56:32 Measurements Intervals [place] Rate: 96 P: 61 WA: 154 QRS: -26 QRSD: 95 T: 60 QT: 343 QTc: 434 Interpretive Statements SINUS RHYTHM WITH OCCASIONAL VENTRICULAR PREMATURE COMPLEXES DELAYED PRECORDIAL R/S TRANSITION LEFT VENTRICULAR HYPERTROPHY MINIMAL Q WAVES- HIGH LATERAL LEADS BORDERLINE ECG No previous ECG available for comparison Electronically Signed On 02-11-2024 08:08:13 CDT by Tee Burns D.O.
[2024-02-11 07:01] LABS: Basophils Percent Auto 0.4 % (0.2-1.2); Eosinophils Percent Auto 0.4 % (0-4.4); Hematocrit 42.9 % (37.0-47.0); Hemoglobin 14.3 g/dL (12.0-15.0); Immature Granulocyte Absolute 0.03 K/mm3 (0.00-0.031); Immature Granulocyte Percent A 0.3 % (0-0.5); Lymphocytes Absolute Auto 0.91 K/mm3 (0.9-3.2); Mean Corpuscular HGB Conc 33.3 g/dl (32-36); Mean Corpuscular Hemoglobin 29.9 pg (26-34); Mean Corpuscular Volume 89.7 fl (80-100); Mean Platelet Volume 12.1 fl (7.4-10.4); Monocytes Absolute Auto 0.8 K/mm3 (0.1-0.6); Monocytes Percent Auto 7.4 % (2.6-8.5); Neutrophils Absolute Auto 8.4 K/mm3 (1.3-6.7); Neutrophils Percent Auto 82.5 % (45.5-73.1); Platelet Count Result 252 k/mm3 (150-375); Red Blood Count 4.78 M/mm3 (4.2-5.4); White Blood Count 10.1 K/mm3 (4.5-10.0)
[2024-02-11 07:06] LABS: Appearance Urine Clear (Clear); Bacteria Urine None Seen /hpf; Bilirubin Urine Negative (Negative); Blood Urine Negative (Negative); Color Urine Yellow (Yellow); Glucose Urine UA Negative (Negative); Ketones Urine Negative (Negative); Leukocyte Esterase Ur Trace LEU/UL (Negative); Nitrate Urine Negative (Negative); Non Pathogenic Casts 0-2; Protein Urine Negative (Negative); RBC Urine 0-2 /hpf (0-2); Specific Grav Ur 1.013 (1.001-1.035); Squamous Epithelial Cell Urine None Seen /hpf (Few); Urobilinogen Urine 0.2 mg/dL (<2.0); WBC Urine 0-5 /hpf (0-3); pH Urine 7.5 (5.0-9.0)
[2024-02-11 07:08] LABS: Lactic Acid Reflex 0.9 mmol/L (0.7-2.0)
[2024-02-11 07:11] LABS: Alanine Aminotransferase 20 U/L (6-35); Albumin Level 4.8 g/dL (3.5-5.1); Alkaline Phosphatase 106 U/L (38-126); Anion Gap 10 mmol/L (4-12); Aspartate Amino Transferase 28 U/L (14-36); Blood Urea Nitrogen 14 mg/dL (7-17); Calcium 9.4 mg/dL (8.4-10.2); Carbon Dioxide 22 mmol/L (22-30); Chloride 106 mmol/L (98-107); Estimated CRCL calculation 49 ml/min; Estimated Glomerular Filt Rate > 60; Glucose 110 mg/dL (65-110); Lipase 78 U/L (23-300); Sodium 138 mmol/L (137-145)
[2024-02-11 07:12] LABS: Add Urine Microscopic? YES; Prothrombin Time 14.1 Seconds (11.1-14.7)
[2024-02-11 07:13] LABS: Partial Thromboplastin Time 28.9 Seconds (22.3-36.8)
[2024-02-11] MEDS: MORPHINE SULFATE (*CRX) 4 MG/ML INJ IV PUSH (07:35)
[2024-02-11] MEDS: ONDANSETRON INJ 4 MG/2 ML VIAL IV PUSH (07:35)
[2024-02-11] MEDS: SODIUM CHLORIDE 0.9% IV 1,000 ML 999 ML IV CONT (07:35)
--- NOTE | 2024-02-11 09:42 | ED.ABDPAIN ---
HPI - Abdominal Pain General Chief Complaint: Abdominal Pain Stated Complaint: Left flank pain Time Seen by Provider: 02/11/24 07:07 History of Present Illness HPI narrative: Patient is a 68-year-old female who presents emergency department with chief complaint of left lower quadrant abdominal pain. Patient reports he has prior history of diverticulitis and reports that she started having pain in the left flank area last night reports that the pain radiates to her left lower quadrant. Patient denies fever denies vomiting reports no blood in her stool Related Data Home Medications Medication Instructions Recorded Confirmed levothyroxine 100 mcg tablet 100 mcg PO DAILY 07/05/20 03/28/23 timolol 0.5 % eye drops (Betimol) 1 drp ophthalmic (eye) BID 07/05/20 03/28/23 citalopram 20 mg tablet 20 tablet PO DAILY 01/23/22 03/28/23 risedronate 150 mg tablet 1 tablet PO MONTHLY 01/23/22 03/28/23 Allergies Allergy/AdvReac Type Severity Reaction Status Date / Time diphenhydramine Allergy Unknown Nausea/hive Verified 03/28/23 11:30 s codeine AdvReac Unknown Confusion Verified 03/28/23 11:30 nitrofurantoin AdvReac Unknown Nausea Verified 03/28/23 11:30 tramadol AdvReac Unknown Nausea and Verified 03/28/23 11:30 Vomiting Review of Systems Review of Systems: A 10 system review of systems was completed on the patient and is negative except for what is stated in the HPI. Nursing and ancillary documentation was reviewed. [facility] Past Medical History Medical History Arthritis Diverticulitis Hypothyroidism Overweight Surgical History Surgical History History of cholecystectomy History of surgery (~03/04/19) IM Nailing Lt Distal Tibial Shaft Family History Family History Grandparent Diabetes mellitus Social History Social History Smoking status: Never smoker Second hand tobacco smoke exposure: No Alcohol intake: never Substance use: never Substance use type: does not use Lack of Transportation: No Lack of Food: Never True Current Housing: I Have Housing Concerned About Future Housing: No Difficulty Paying Gas/Electric Bills: No Difficulty Paying for Meds: No Currently Unemployed: No Education: High School Diploma/GED Difficulty w/ Childcare or Family Care: No Living arrangements: with family Gender identity (if verbalized by the patient): Female Spiritual care concerns: No Exam Narrative: GENERAL: Well-appearing, well-nourished, and in no acute distress. HEAD: Normocephalic, atraumatic. EYES: PERRLA and EOMI. ENT: Nares clear, no rhinorrhea or epistaxis. Mucous membranes moist. NECK: Supple. CHEST: Clear to auscultation. No respiratory distress. HEART: Regular rate and rhythm. No murmur heard. Normal peripheral pulses. ABDOMEN: Soft, tenderness to palpation left lower quadrant, nondistended, normal active bowel sounds. EXTREMITIES: Normal range of motion. No edema. SKIN: Warm, dry, no rash. NEURO: No focal deficits. Alert and oriented x3. PSYCH: Normal mood and affect. Course Vital Signs Vital signs: Vital Signs Temperature 36.3 C L 02/11/24 06:35 Pulse Rate 99 02/11/24 06:35 Respiratory Rate 16 02/11/24 06:35 Blood Pressure 149/81 H 02/11/24 06:35 Pulse Oximetry 98 02/11/24 06:35 Oxygen Delivery Room Air 02/11/24 06:35 Temperature 36.3 C L 02/11/24 06:35 Pulse Rate 96 02/11/24 09:16 Respiratory Rate 18 02/11/24 09:16 Blood Pressure 141/64 H 02/11/24 09:16 Pulse Oximetry 88 L 02/11/24 09:16 Oxygen Delivery Room Air 02/11/24 06:35 MDM - Abdominal Pain MDM Narrative Medical decision making narrative: Differential diagnosis includes diverticulitis, colitis,
== END 2024-02-11 10:05 | disposition home or self-care (01) ==
PROVIDERS: Student in an Organized Health Care Education/Training Program; Emergency Provider Emergency Medicine; PCP Physician Assistant
DX: K57.92 Diverticulitis of intestine, part unspecified, without perforation or abscess without bleeding (principal); E03.9 Hypothyroidism, unspecified
CPT/HCPCS: 36415; 74177; 80053; 81001; 83605; 83690; 85025; 85610; 85730; 93005; 96361; 96374; 96375; 99284; J2270; J2405; J7030; Q9967

== ENCOUNTER 2024-03-23 08:44 | Outpatient (CLI) | payer MEDICARE, SELFPAY ==
--- NOTE | ~2024-03-23 | CT_ITS ---
EXAMINATION: CT abdomen pelvis w con DATE: 03/23/2024 09:26 INDICATION: Diverticulitis. TECHNIQUE: Computed tomography (CT) of the abdomen and pelvis was performed with 100 mL Omnipaque 350 intravenous contrast. Automated exposure control and iterative reconstruction technique were employe d. The dose-length product was 574.37 mGy-cm. COMPARISON: CT abdomen and pelvis 02/11/2024 FINDINGS: The visualized portions of the lung bases demonstrate minimal atelectasis. No pleural effus ion. The heart size is normal. No pericardial effusion. The liver is normal. There are changes of cho lecystectomy. Calcifications in the spleen are consistent with old granulomatous disease. The pancrea s, adrenal glands, and left kidney are normal. There is a 5 mm cyst in right kidney. There is diverti culosis of the colon. There is fat stranding adjacent to the distal descending colon, consistent with diverticulitis. There are no dilated loops of bowel. The appendix is normal. There are no pathologic ally enlarged lymph nodes. There is no free intraperitoneal fluid. There is severe lower lumbar spond ylosis. IMPRESSION: 1. Diverticulitis of distal descending colon with interval improvement. No perforation or abscess. Reviewed, dictated and finalized at location A. IMPRESSION: 1. Diverticulitis of distal descending colon with interval improvement. No perf oration or abscess.
[2024-03-23 09:20] LABS: Estimated Glomerular Filt Rate 55
== END 2024-03-23 08:45 | disposition home or self-care (01) ==
PROVIDERS: PCP Physician Assistant; Visit Provider Physician Assistant
DX: K57.32 Diverticulitis of large intestine without perforation or abscess without bleeding (principal)
CPT/HCPCS: 74177; Q9967

== ENCOUNTER 2024-04-27 09:52 | Outpatient (CLI) | payer MEDICARE, SELFPAY ==
[2024-04-27 11:11] LABS: Hematocrit 42.4 % (37.0-47.0); Hemoglobin 13.8 g/dL (12.0-15.0)
== END 2024-04-27 09:53 | disposition home or self-care (01) ==
LOC: ANHSURGERY 09:57
PROVIDERS: Anesthesiology; PCP Physician Assistant; Visit Provider Surgery
DX: Z01.812 Encounter for preprocedural laboratory examination (principal); K57.92 Diverticulitis of intestine, part unspecified, without perforation or abscess without bleeding
CPT/HCPCS: 36415; 85014; 85018; 86850; 86900; 86901

== ENCOUNTER 2024-05-04 13:34 | Inpatient (IN) | payer MEDICARE, SELFPAY ==
[2024-04-27 10:16] VITALS: BP 138/72; PULSE 75; RESP 16; TEMP 37; O2SAT 99; BMI 27.3
--- NOTE | 2024-04-27 10:31 | PC.NURSE ---
Report to the Outpatient Waiting Room, entrance under the green pavilion located off [facility], at time _6:00AM_ on date _05/04/24_. Planned Procedure Time: _7:30AM_.? Time changes happen often and if your time is changed the preop area will call you the afternoon before. - You and your visitor will be asked to self-screen and do not enter if you have any COVID symptoms. Please call surgeon if you need to reschedule. - A mask is optional within the hospital at this time. Patients may have clear liquids (water, carbonated beverages, clear teas, apple juice) until 3 hours prior to surgery with a maximum of 20 ounces. BOWEL PREP DAY BEFORE SURGERY PER DR MEDEL. Take only the following medications with a SIP of water on the morning of surgery: __AMLODIPINE, CITALOPRAM, LEVOTHYROXINE DO NOT STOP ANY OF YOUR OTHER PRESCRIPTION MEDICATIONS PRIOR TO SURGERY EXCEPT THE FOLLOWING Medications to discontinue per physician NONE Date to take last dose Please no make-up, nail niuean, hairspray, perfume, deodorant, or body powder the day of surgery.? No jewelry (including any body piercings) or valuables the day of surgery, leave them at home.? Please take a shower or bath the night before, or the morning of, surgery with an antibacterial soap.? Wear comfortable, loose fitting clothing.? - Jewelry must be removed prior to entering the operating room.? Rings and piercings that are not removed may be cut off. - The hospital will not accept responsibility for valuables.? - Please leave all valuables, including medications, at home the day of surgery. If you are going home after surgery, a licensed warehouse associate driver must drive you home.? - NO public transportation without another adult if you receive anesthesia. - We recommend that an adult stay with you for 24 hours following discharge. - We also recommend that you do not drive, make important decision, drink alcoholic beverages, or take any drugs that were not prescribed by your health care provider for at least 24 hours after your discharge time. Follow any additional instructions given to you from your surgeon. ORAL ANTIBIOTICS ON DAY BEFORE SURGERY, BOWEL PREP, ENSURE BUNDLE, HIBICLENS SHOWER DAY BEFORE & MORNING OF SURGERY. Telephone instructions given to PATIENT and asked if any additional questions and then verbalized understanding. Patient advised to call surgeon office or pre surgery nurse liaison [phone] if any additional questions.
[2024-05-04] VITALS (13 sets, daily range): BP systolic 126–174; BP diastolic 53–92; PULSE 80–109; RESP 12–18; TEMP 35.9–37; O2SAT 88–100
--- NOTE | ~2024-05-04 | CT_ITS ---
CT abdomen pelvis w con Ordering provider: Jacob Pearl MD History: 68 years Female with . Persistent left lower quadrant pain postop . Comparison: None. Technique: CT abdomen and pelvis with IV and without oral contrast. Automated exposure control and it erative reconstruction technique were employed. The dose-length product was 529.42 mGy-cm. 100 mL Omn ipaque 350 was given IV. Findings: VISUALIZED LOWER CHEST: Air is seen in the soft tissues of the anterior chest wall on the right side minimal atelectatic changes in the lung bases posteriorly with minimal effusion the left side of the. UPPER ABDOMINAL ORGANS: Liver: Normal. Gallbladder: Status post cholecystectomy. Spleen: Normal. Benign calcifications. Stomach/duodenum: Normal. Pancreas: Normal. Adrenals: Normal. Kidneys: Tiny cyst in the right kidney upper pole. PELVIC ORGANS: The bladder shows slightly thickened in the wall anteriorly. BOWEL AND MESENTERY: Colon: Postoperative changes in the sigmoid colon area. Surrounding fat stranding is seen in the area . Minimal rectal free air is seen which may be postoperative follow-up advised.. Fecal material seen in the retroperitoneum: No Normal appendix. Small Bowel: Normal. No obstruction. Peritoneum/mesentery: No free air or free fluid. No mesenteric lymphadenopathy. Panniculitis seen in the mid abdomen. This also may be postoperative. Follow-up advised. RETROPERITONEUM: Mild atheromatous disease of the abdominal aorta. No retroperitoneal lymphadenopat hy. MUSCULOSKELETAL: Superficial soft tissues: Areas seen in the anterior abdominal wall and extending to the right upper thigh The superficial soft tissues are normal. Bones: Age appropriate degenerative changes of the spine. IMPRESSION: 1. Subcutaneous air tissues of the abdomen and upper right side. 2. Postoperative changes in the sigmoid colon with slight thickening of the wall in the area with orellana rrounding fat stranding which may be postoperative. 3. Minimal free air around the rectum. Follow-up advised. Reviewed, dictated and finalized at location A. IMPRESSION: 1. Subcutaneous air tissues of the abdomen and upper right side. 2. Postoperative changes in the sigmoid colon with slight thickening of the wa ll in the area with surrounding fat stranding which may be postoperative. 3. Minimal free air around the rectum. Follow-up advised.
[2024-05-04] MEDS: LACTATED RINGERS 1,000 ML 30 ML IV CONT ×2 (07:00→12:05)
[2024-05-04] MEDS: ACETAMINOPHEN 500 MG TABLET 1000 MG PO (07:00)
[2024-05-04] MEDS: KETOROLAC 15 MG/ML VIAL (*BKC) IV PUSH (07:00)
--- NOTE | 2024-05-04 07:14 | PM.IMHP ---
H&P: HPI History of Present Illness Date/Time: 05/04/24 07:14 Chief Complaint: diverticulitis Narrative: 68 yo woman presents for sigmoid colectomy for recurrent diverticulitis. She has had multiple episodes of diverticulitis over the past several years. Review of Systems Review of Systems: All systems reviewed & are unremarkable except as noted in HPI and below Constitutional: Constitutional: Denies chills, Denies fever(s), Denies headache(s) and Denies weight loss Eyes: Eyes: Denies change in vision ENT: Denies dizziness, Denies headache(s), Denies neck mass and Denies throat swelling Cardiovascular: Cardiovascular: Denies chest pain, Denies lightheadedness and Denies dyspnea Respiratory: Respiratory: Denies cough, Denies dyspnea and Denies wheezing Gastrointestinal: Gastrointestinal: Denies abdominal pain, Denies change in bowel habits, Denies nausea and Denies vomiting Genitourinary: Genitourinary: Denies hematuria and Denies dysuria Musculoskeletal: Musculoskeletal: Reports as per HPI Integumentary/Breasts: Skin/Breast: Reports as per HPI Neurologic: Denies dizziness and Denies headache(s) Allergic/Immunologic: Allergic/Immunologic: Denies throat swelling and Denies wheezing PMFSH Past Medical History Medical History (Updated 04/02/24 @ 10:32 by Ana Cristina Gutiérrez CMA) Arthritis Diverticulitis Hypothyroidism Overweight Surgical History Surgical History History of cholecystectomy History of surgery (~03/04/19) IM Nailing Lt Distal Tibial Shaft Family History Family History Grandparent Diabetes mellitus Social History Social History (Updated 04/02/24 @ 09:47 by Shira Trujillo CMA) Smoking status: Never smoker Second hand tobacco smoke exposure: No Alcohol intake: never Substance use: never Substance use type: does not use Do You Feel Safe in your Home?: Yes Lack of Transportation: No Lack of Food: Never True Current Housing: I Have Housing Concerned About Future Housing: No Difficulty Paying Gas/Electric Bills: No Difficulty Paying for Meds: No Currently Unemployed: No Education: High School Diploma/GED Difficulty w/ Childcare or Family Care: No Living arrangements: with family Additional living arrangements comments: [place] Gender identity (if verbalized by the patient): Female Spiritual care concerns: No Meds Home Medications and Allergies Home Medications Medication Instructions Recorded Confirmed Type levothyroxine 100 mcg tablet 100 mcg PO DAILY 07/05/20 05/04/24 History citalopram 20 mg tablet 20 tablet PO DAILY 01/23/22 05/04/24 History ciprofloxacin HCl 500 mg tablet See Rx Instructions .Route 04/05/24 04/27/24 Rx .COMPLEX #1 tablet metronidazole 500 mg tablet See Rx Instructions .Route 04/05/24 04/27/24 Rx .COMPLEX #3 tabs acetaminophen 500 mg tablet 1,000 mg PO Q6H PRN Pain 04/27/24 04/27/24 History amlodipine 2.5 mg tablet 2.5 mg PO QAM 04/27/24 05/04/24 History docusate sodium 100 mg capsule 100 mg PO DAILY PRN Constipation 04/27/24 04/27/24 History (Colace) famotidine 20 mg tablet 20 mg PO BID 04/27/24 04/27/24 History latanoprost 0.005 % eye drops 1 drp EACH EYE HS 04/27/24 04/27/24 History Allergies Allergy/AdvReac Type Severity Reaction Status Date / Time diphenhydramine Allergy Unknown Hives Verified 05/04/24 07:09 codeine AdvReac Unknown Confusion, Verified 05/04/24 07:09 PASSED OUT IN PAST nitrofurantoin AdvReac Unknown Nausea, Verified 05/04/24 07:09 VOMITING tramadol AdvReac Unknown Nausea and Verified 05/04/24 07:09 Vomiting Vital Signs Vital Signs - 24 hr 05/04/24 07:00 Temperature 98.2 F Pulse Rate 81 Respiratory Rate 14 Blood Pressure 136/60 Pulse Oximetry 99 Oxygen Delivery Room Air Exam Const: General: no acute distress and alert Orientation/
--- NOTE | 2024-05-04 07:16 | WPDHPUPDATE1 ---
History and Physical Update Update Date/Time: 05/04/24 07:16 History and Physical has been reviewed, including an updated exam of the patient. There are NO changes in the patient's condition. Risks, benefits, and alternatives have been discussed and questions answered. Patient agrees to proceed with procedure.
[2024-05-04] MEDS: ceFAZolin 2 GM/D5W 50 ML 2 GM/50 ML BAG IVPB (07:28)
[2024-05-04] MEDS: metroNIDAZOLE 500 MG/ISO 100ML 500 MG/100 ML BAG 100 MG IVPB ×2 (07:44→14:26)
--- NOTE | 2024-05-04 08:17 | WPDANESEPPF ---
Anes - Initial Pre Proc Eval Procedure: Operation Date: 05/04/24 07:30 Proposed Procedures p Laparoscopic Sigmoid Colectomy, Davinci Assisted - Eric Eason DO Date/Time: 05/04/24 08:17 Surgeon: Eric Eason DO Pre Op Diagnosis: diverticulitis large intestine without Patient Data Age: 68 Gender: F Height: 1.65 m Weight: 73.5 kg Last Vital Signs Temp 98.2 F 05/04/24 07:00 Pulse 81 05/04/24 07:00 Resp 14 05/04/24 07:00 BP 136/60 05/04/24 07:00 Pulse Ox 99 05/04/24 07:00 O2 Del Method Room Air 05/04/24 07:00 Allergies Allergy/AdvReac Type Severity Reaction Status Date / Time diphenhydramine Allergy Unknown Hives Verified 05/04/24 07:09 codeine AdvReac Unknown Confusion, Verified 05/04/24 07:09 PASSED OUT IN PAST nitrofurantoin AdvReac Unknown Nausea, Verified 05/04/24 07:09 VOMITING tramadol AdvReac Unknown Nausea and Verified 05/04/24 07:09 Vomiting Home Medications Medication Instructions Recorded Confirmed Type levothyroxine 100 mcg tablet 100 mcg PO DAILY 07/05/20 05/04/24 History citalopram 20 mg tablet 20 tablet PO DAILY 01/23/22 05/04/24 History ciprofloxacin HCl 500 mg tablet See Rx Instructions .Route 04/05/24 04/27/24 Rx .COMPLEX #1 tablet metronidazole 500 mg tablet See Rx Instructions .Route 04/05/24 04/27/24 Rx .COMPLEX #3 tabs acetaminophen 500 mg tablet 1,000 mg PO Q6H PRN Pain 04/27/24 04/27/24 History amlodipine 2.5 mg tablet 2.5 mg PO QAM 04/27/24 05/04/24 History docusate sodium 100 mg capsule 100 mg PO DAILY PRN Constipation 04/27/24 04/27/24 History (Colace) famotidine 20 mg tablet 20 mg PO BID 04/27/24 04/27/24 History latanoprost 0.005 % eye drops 1 drp EACH EYE HS 04/27/24 04/27/24 History Patient hx anesthesia problems: none Family hx anesthesia problems: none Results Review: All pre-operative results and documents have been reviewed as part of the pre-operative evaluation. [facility] Past Medical History Medical History Arthritis Diverticulitis Hypothyroidism Overweight Surgical History Surgical History History of cholecystectomy History of surgery (~03/04/19) IM Nailing Lt Distal Tibial Shaft Family History Family History Grandparent Diabetes mellitus Social History Social History Smoking status: Never smoker Second hand tobacco smoke exposure: No Alcohol intake: never Substance use: never Substance use type: does not use Do You Feel Safe in your Home?: Yes Lack of Transportation: No Lack of Food: Never True Current Housing: I Have Housing Concerned About Future Housing: No Difficulty Paying Gas/Electric Bills: No Difficulty Paying for Meds: No Currently Unemployed: No Education: High School Diploma/GED Difficulty w/ Childcare or Family Care: No Living arrangements: with family Additional living arrangements comments: [place] Gender identity (if verbalized by the patient): Female Spiritual care concerns: No Anes - Eval Final PreProcedure Day of Procedure 05/04/24 08:17 Patient weight: overweight Heart: regular rate and rhythm Lungs: clear to auscultation Airway: Mallampati scale Neurological: alert and oriented Last oral intake: >/= 8 hours ASA classification: II Emergent: no Anesthetic plan: proceed Anesthesia type and monitoring: general ETT and standard monitoring Results Review: All pre-operative results and documents have been reviewed as part of the pre-operative evaluation. HTN, hypothyroidism. Hx of diverticulitis. Informed Consent: The patient's anesthetic plan and its attendant risks and benefits were discussed with the patient/family/POA. Questions were solicited and answers provided to the sat
[2024-05-04] MEDS: BUPIVACAINE/EPINEPHRINE 0.5% 10 ML VIAL 60 ML INFILTRATE (09:01)
--- NOTE | 2024-05-04 12:03 | W.PM.PROC2 ---
Procedure Note - Detailed Date of Procedure 05/04/24 Pre-op Diagnosis diverticulitis large intestine without perforation or abscess Post-op Diagnosis Same (Diverticulitis, 4 cm Left Spigelian hernia) Procedure Performed 1. Laparoscopic sigmoid colectomy with colorectal anastomosis, da Vika assisted 2. Laparoscopic 4cm left Spigelian hernia repair Surgeon Eric Eason DO Anesthesia General and Local (0.5% bupivacaine with epinephrine) Indications This is a 68-year-old woman who presents with multiple prior episodes of diverticulitis. She has been having frequent episodes of left lower quadrant pain over the past 3 years. She has had multiple CTs over the past couple years showing acute sigmoid diverticulitis. She usually is treated with antibiotics as an outpatient and has not been hospitalized for this. She continues to have frequent episodes despite trying to manage her diet. She had a colonoscopy 2 years ago which only showed evidence of diverticulosis. Discussions were made with the patient about treatment options and decision was made to proceed with laparoscopic sigmoid colectomy, da Vika assisted. Findings Laparoscopic sigmoid colectomy, da Vika assisted was performed. The patient appeared to have chronic diverticulitis involving the proximal sigmoid colon. She was also found to have a left lower quadrant 4 cm spigelian hernia containing omentum. The sigmoid colon was going right up near this hernia defect. There was also some inflammatory changes and scant exudate on the peritoneal surface very close to this area. The distal sigmoid and rectum appeared healthy as well as the descending colon. After mobilizing the sigmoid colon and performing a high ligation of the inferior mesenteric artery, I then chose a location just beyond the rectosigmoid junction for transection. I then also chose a location on the distal descending colon that appeared healthy for resection and anastomosis. A 28 mm end-to-end anastomosis was performed after resecting the sigmoid colon. Indocyanine green perfusion was used to assess blood flow to the anastomosis which appeared healthy and viable. Leak test was then also performed and there was no sign of an air leak. The sigmoid colon was sent to the lab for pathology. I then chose to close the hernia defect primarily and avoid using mesh at this time due to risk of infection with the diverticulitis. Description of Procedure Procedure as well as risks, benefits, and alternatives were discussed with the patient. Written consent was obtained and placed in chart prior to procedure. Patient was brought back to surgical suite. She was placed supine on operating table. Time-out was done to confirm patient and procedure. She was then intubated by the anesthesia department. She was then repositioned into a modified lithotomy position. Her rectal area was prepped and draped in sterile fashion using Betadine prep and her abdomen was prepped and draped in sterile fashion using chlorhexidine prep. A 5 cm low mini Pfannenstiel incision was made in the suprapubic region using a 15 blade scalpel. Electrocautery was used for hemostasis and for dissection down to the linea alba and anterior rectus sheath. The anterior rectus sheath and linea alba were then incised transversely using electrocautery. The fascia was then carefully lifted off of the rectus muscle using electrocautery. The peritoneum in the midline was then opened using electrocautery. A small René wound protector was then placed and twisted closed and clamped. A 8 mm incision was made in the right upper quadrant and a 5 mm Optiview trocar was advanced through the abdominal layers under direct visualization. Once inside the abdominal cavity, carbon dioxide insufflation was used to create a pneumoperitoneum. Camera was inserted and her abdomen was inspected laparoscopically. No immediate abnormalities were identified. The patient was placed in steep Trendele
[2024-05-04] MEDS: fentaNYL CITRATE INJ (*CRX) 100 MCG/2 ML VIAL 25 MCG IV PUSH ×6 (12:14→13:00)
[2024-05-04] MEDS: PROPARACAINE HCL 0.5% 15 ML OPHTH SOLN 1 DROP EACH EYE (13:33)
[2024-05-04] MEDS: DICLOFENAC SODIUM 0.1% OPHTH SOLN 2.5 ML BOTTLE 1 DROP EACH EYE ×2 (13:35→21:50)
[2024-05-04] MEDS: ACETAMINOPHEN 325 MG TABLET 650 MG PO ×2 (14:26→17:59)
[2024-05-04] MEDS: ceFAZolin 1 GM/NS 50 ML 1 GM/50 ML BAG IVPB ×2 (14:26→21:51)
[2024-05-04] MEDS: LACTATED RINGERS 1,000 ML 100 ML IV CONT (14:27)
--- NOTE | 2024-05-04 15:00 | ADMGEN ---
This patient, Flori Bauer, was admitted to [facility] Surg Room 332-01. Patient/family oriented to hospital policies and general routines including ID bracelet, bed and alarms, visiting hours, pain management, procedures, bathroom and other care routines, personal items, smoking policy, room service/diet, and visiting hours. Information on how to activate the Rapid Response Team has been discussed. Patient/Family are encouraged to report perceived risks to care and to ask questions if they do not understand what they are told or what they should do.
[2024-05-04] MEDS: MORPHINE SULFATE (*CRX) 4 MG/ML INJ IV PUSH ×2 (15:14→22:00)
[2024-05-04] MEDS: FAMOTIDINE 20 MG TABLET PO (21:50)
[2024-05-04] MEDS: LATANOPROST 0.005% OP SOLN 2.5 ML BTL 1 DROP EACH EYE (21:52)
[2024-05-05] MEDS: metroNIDAZOLE 500 MG/ISO 100ML 500 MG/100 ML BAG 100 MG IVPB (00:36)
[2024-05-05] MEDS: ACETAMINOPHEN 325 MG TABLET 650 MG PO ×5 (00:36→23:56)
[2024-05-05] MEDS: LACTATED RINGERS 1,000 ML 100 ML IV CONT (00:42)
[2024-05-05 03:09] VITALS: BP 127/50; PULSE 84; RESP 18; TEMP 36.4; O2SAT 100
[2024-05-05] MEDS: MORPHINE SULFATE (*CRX) 4 MG/ML INJ IV PUSH ×4 (04:06→17:11)
[2024-05-05] MEDS: LEVOTHYROXINE SODIUM 100 MCG TABLET PO (05:40)
[2024-05-05] MEDS: DICLOFENAC SODIUM 0.1% OPHTH SOLN 2.5 ML BOTTLE 1 DROP EACH EYE ×3 (05:40→22:00)
[2024-05-05 06:27] LABS: Hematocrit 36.6 % (37.0-47.0); Hemoglobin 11.9 g/dL (12.0-15.0); Mean Corpuscular HGB Conc 32.5 g/dl (32-36); Mean Corpuscular Hemoglobin 30.1 pg (26-34); Mean Corpuscular Volume 92.4 fl (80-100); Mean Platelet Volume 11.5 fl (7.4-10.4); Platelet Count Result 220 k/mm3 (150-375); Red Blood Count 3.96 M/mm3 (4.2-5.4); Red Cell Distribution Width 12.9 % (11.5-14.5); White Blood Count 12.2 K/mm3 (4.5-10.0)
[2024-05-05 07:09] VITALS: BP 123/50; PULSE 79; RESP 18; TEMP 36.7; O2SAT 100
[2024-05-05 07:31] LABS: Blood Urea Nitrogen 10 mg/dL (7-17); Calcium 8.3 mg/dL (8.4-10.2); Carbon Dioxide 30 mmol/L (22-30); Chloride 91 mmol/L (98-107); Estimated CRCL calculation 53 ml/min; Estimated Glomerular Filt Rate > 60; Glucose 98 mg/dL (65-110)
[2024-05-05 08:08] LABS: Anion Gap 10 mmol/L (4-12); Sodium 131 mmol/L (137-145)
[2024-05-05] MEDS: CITALOPRAM HYDROBROMIDE 20 MG TABLET PO (08:42)
[2024-05-05] MEDS: FAMOTIDINE 20 MG TABLET PO ×2 (08:42→20:54)
[2024-05-05] MEDS: amLODIPine BESYLATE 2.5 MG TABLET PO (08:42)
[2024-05-05] MEDS: ENOXAPARIN 40 MG/0.4 ML SYRINGE SUB-Q (08:43)
--- NOTE | 2024-05-05 08:51 | PM.PNGS ---
Progress Note: A&P Assessment and Plan (1) Diverticulitis: Code(s): K57.92 - Diverticulitis of intestine, part unspecified, without perforation or abscess without bleeding Status: Acute Assessment and Plan: Advance to full liquids today. Stop IV fluids. Await return of bowel function. Increase activity slowly. (2) Spigelian hernia: Code(s): K43.9 - Ventral hernia without obstruction or gangrene Status: Acute Assessment and Plan: Discussed findings of the hernia at time of surgery. Repaired primarily. Probably going to have more LLQ pain due to this. Subjective Subjective Date/Time Seen: 05/05/24 08:51 Post Op day: 1 (s/p robotic sigmoidectomy, left Spigelian hernia repair 05/04) Patient reports: no flatus and no bowel movement Interval history: Tolerating clear liquids. Pain in LLQ. No nausea. Discussed with patient the findings of a LLQ hernia that was repaired at time of surgery. Exam GI: Inspection: non-distended and incision (intact with glue) GI Palp: Yes Soft to palpation, Yes Tenderness to palpation present (GI) (incisional) and No Guarding due to palpation present (GI) Auscultation: normal bowel sounds Objective Data Vital Signs Vital Signs: Vital Signs - 24 hr 05/04/24 12:05 05/04/24 12:20 05/04/24 12:35 Temperature 97.9 F Pulse Rate 107 H 106 H 107 H Respiratory Rate 12 18 16 Blood Pressure 174/92 H 155/53 H 162/70 H Pulse Oximetry 100 100 96 Oxygen Delivery Simple Face Mask Simple Face Mask Nasal Cannula Oxygen Flow Rate 8 8 2 05/04/24 12:50 05/04/24 13:05 05/04/24 13:20 Temperature Pulse Rate 107 H 109 H 102 H Respiratory Rate 14 13 14 Blood Pressure 153/69 H 151/77 H 142/69 H Pulse Oximetry 100 98 98 Oxygen Delivery Nasal Cannula Nasal Cannula Nasal Cannula Oxygen Flow Rate 2 2 2 05/04/24 13:24 05/04/24 13:39 05/04/24 14:09 Temperature 96.7 F L 98.0 F 96.7 F L Pulse Rate 80 Respiratory Rate 18 Blood Pressure 144/68 H Pulse Oximetry 88 L Oxygen Delivery Oxygen Flow Rate 05/04/24 15:09 05/04/24 19:09 05/04/24 23:09 Temperature 98.2 F 98.6 F 97.8 F Pulse Rate 82 94 86 Respiratory Rate 18 13 18 Blood Pressure 131/55 L 139/61 126/57 L Pulse Oximetry 100 99 100 Oxygen Delivery Oxygen Flow Rate 05/05/24 03:09 05/04/24 20:00 05/05/24 07:09 Temperature 97.6 F 98.0 F Pulse Rate 84 79 Respiratory Rate 18 18 Blood Pressure 127/50 L 123/50 L Pulse Oximetry 100 100 Oxygen Delivery Room Air Oxygen Flow Rate Intake/Output Intake/Output: Intake & Output 05/02/24 05/03/24 05/04/24 05/05/24 23:59 23:59 23:59 23:59 Intake Total 1250 1340 Balance 1250 1340 Meds/Results Medications: Active Medications Generic Name Dose Route Start Last Admin Trade Name Freq PRN Reason Stop Dose Admin Acetaminophen 650 mg 05/04/24 13:24 05/05/24 05:40 Acetaminophen 325 Mg Tablet PO 650 mg Q6HR LADY Administration Amlodipine Besylate 2.5 mg 05/05/24 09:00 05/05/24 08:42 Amlodipine Besylate 2.5 Mg Tablet PO 2.5 mg QAM LADY Administration Artificial Tears 1 drop 05/04/24 13:28 Artificial Tears Ophth Soln 15 Ml Bottle EACH EYE Q2H PRN Dry Eye(s) Citalopram Hydrobromide 20 mg 05/05/24 09:00 05/05/24 08:42 Citalopram Hydrobromide 20 Mg Tablet PO 20 mg DAILY LADY Administration Diclofenac Sodium 1 drop 05/04/24 14:00 05/05/24 05:40 Diclofenac Sodium 0.1% Ophth Soln 2.5 Ml Bottle EACH EYE 05/08/24 13:59 1 drop Q8HR LADY Administration Enoxaparin Sodium 40 mg 05/05/24 09:00 05/05/24 08:43 Enoxaparin 40 Mg/0.4 Ml Syringe SUB-Q 40 mg DAILY LADY Administration Famotidine 20 mg 05/04/24 21:00 05/05/24 08:42 Famotidine 20 Mg Tablet PO 20 mg Q12HR LADY Administration Latanoprost 1 drop 05/04/24 21:00 05/04/24 21:52 Latanoprost 0.005% Op Soln 2.5 Ml Btl EACH EYE 1 drop HS LADY Administration Levothyroxine Sodium 100 mcg
[2024-05-05] MEDS: ONDANSETRON INJ 4 MG/2 ML VIAL IV PUSH (08:56)
[2024-05-05 11:09] VITALS: BP 126/59; PULSE 80; RESP 18; TEMP 35.8; O2SAT 96
--- NOTE | 2024-05-05 13:56 | WPDANESPN ---
Anes - Prog Note Post-Op Date/Time: 05/05/24 13:56 Cardiovascular status: normal Respiratory status: normal Airway patency: baseline Mental status: baseline Post-Op hydration status: normal Vital Signs: Last Vital Signs Temp 35.8 C L 05/05/24 11:09 Pulse 80 05/05/24 11:09 Resp 18 05/05/24 11:09 BP 126/59 L 05/05/24 11:09 Pulse Ox 96 05/05/24 11:09 O2 Del Method Room Air 05/05/24 08:00 O2 Flow Rate 2 05/04/24 13:20 Pain Score (VAS): 2 I/O: Intake & Output 05/04/24 05/05/24 05/05/24 23:59 07:59 15:59 Intake Total 650 1100 480 Balance 650 1100 480 Laboratory Tests 05/05/24 06:19 05/05/24 06:19 05/05/24 06:19 WBC 12.2 H RBC 3.96 L Hgb 11.9 L Hct 36.6 L MCV 92.4 MCH 30.1 MCHC 32.5 RDW 12.9 Plt Count 220 MPV 11.5 H Sodium 131 L Potassium 4.0 Chloride 91 L Carbon Dioxide 30 Anion Gap 10 BUN 10 Creatinine 0.80 Estim Creat Clear Calc 53 Estimated GFR > 60 Glucose 98 Calcium 8.3 L Post-procedural complaints: none Patient Feedback: Patient satisfied with anesthetic care.
[2024-05-05 15:09] VITALS: BP 125/54; PULSE 80; RESP 18; TEMP 36.9; O2SAT 100
[2024-05-05] MEDS: PROMETHAZINE HCL 25 MG/ML AMPUL 12.5 MG IV PUSH (17:13)
[2024-05-05] MEDS: LATANOPROST 0.005% OP SOLN 2.5 ML BTL 1 DROP EACH EYE (20:55)
[2024-05-05 21:14] VITALS: BP 112/49; PULSE 101; RESP 14; TEMP 36.4; O2SAT 93
[2024-05-06] MEDS: MORPHINE SULFATE (*CRX) 4 MG/ML INJ IV PUSH ×2 (00:10→12:40)
[2024-05-06 05:44] VITALS: BP 114/58; PULSE 87; RESP 13; TEMP 36.2; O2SAT 91
[2024-05-06] MEDS: LEVOTHYROXINE SODIUM 100 MCG TABLET PO (06:11)
[2024-05-06] MEDS: DICLOFENAC SODIUM 0.1% OPHTH SOLN 2.5 ML BOTTLE 1 DROP EACH EYE ×3 (06:11→22:00)
[2024-05-06] MEDS: ACETAMINOPHEN 325 MG TABLET 650 MG PO ×3 (06:11→17:13)
[2024-05-06 07:47] LABS: Anion Gap 4 mmol/L (4-12); Blood Urea Nitrogen 8 mg/dL (7-17); Calcium 8.4 mg/dL (8.4-10.2); Carbon Dioxide 30 mmol/L (22-30); Chloride 99 mmol/L (98-107); Estimated CRCL calculation 53 ml/min; Estimated Glomerular Filt Rate > 60; Glucose 91 mg/dL (65-110); Potassium 3.7 mmol/L (3.4-5.0); Sodium 133 mmol/L (137-145)
[2024-05-06] MEDS: oxyCODONE HCL (*CRX) 5 MG TAB IR PO ×2 (07:55→11:32)
[2024-05-06 08:00] VITALS: O2SAT 93
[2024-05-06 08:15] LABS: Hemoglobin 11.7 g/dL (12.0-15.0); Mean Corpuscular HGB Conc 31.6 g/dl (32-36); Mean Corpuscular Hemoglobin 29.3 pg (26-34); Mean Corpuscular Volume 92.7 fl (80-100); Mean Platelet Volume 11.5 fl (7.4-10.4); Platelet Count Result 246 k/mm3 (150-375); Red Blood Count 3.99 M/mm3 (4.2-5.4); Red Cell Distribution Width 13.2 % (11.5-14.5); White Blood Count 9.4 K/mm3 (4.5-10.0)
[2024-05-06] MEDS: FAMOTIDINE 20 MG TABLET PO ×2 (08:31→20:59)
[2024-05-06] MEDS: amLODIPine BESYLATE 2.5 MG TABLET PO (08:31)
[2024-05-06] MEDS: ENOXAPARIN 40 MG/0.4 ML SYRINGE SUB-Q (08:31)
[2024-05-06] MEDS: CITALOPRAM HYDROBROMIDE 20 MG TABLET PO (08:31)
--- NOTE | 2024-05-06 09:47 | PM.PNGS ---
Progress Note: A&P Assessment and Plan (1) Diverticulitis: Code(s): K57.92 - Diverticulitis of intestine, part unspecified, without perforation or abscess without bleeding Status: Acute Assessment and Plan: Bowel function returning. Advance to low fiber diet. Try transitioning to oral analgesics today. Increase activity and try ambulating in the halls. Repeat labs and exam tomorrow. (2) Spigelian hernia: Code(s): K43.9 - Ventral hernia without obstruction or gangrene Status: Acute Assessment and Plan: Primary repair after being found during surgery. Some tenderness in the LLQ, but more complaining of pain near her Pfannenstiel incision today. Plan I have discussed the patient's case and plan of care with Dr. Pearl. Subjective Subjective Date/Time Seen: 05/06/24 09:47 Post Op day: 2 (Laparoscopic sigmoid colectomy with colorectal anastomosis, da Vika assisted, Laparoscopic 4cm left Spigelian hernia repair) Patient reports: tolerating liquids well, flatus, bowel movement and afebrile Interval history: Patient reports issues with pain today. She is complaining of pain at her Pfannenstiel incision, which is where the colon specimen was delivered. She has been taking the Morphine and is going to try the oxycodone this morning to see if this helps with her pain control. She was up to the chair for about 20 minutes yesterday. She denies any nausea or vomiting. She is passing flatus and had a liquid BM this morning. No other complaints at this time. Review of Systems Review of Systems: All systems reviewed & are unremarkable except as noted in HPI and below Exam Const: General: no acute distress and alert Orientation/consciousness: patient oriented x3 GI: Inspection: non-distended and incision (intact with glue, minimal ecchymosis noted at the port incisions) GI Palp: Yes Soft to palpation, Yes Tenderness to palpation present (GI) (LLQ tenderness and incisional tenderness), No Guarding due to palpation present (GI) and No Rebound tenderness present Auscultation: normal bowel sounds Objective Data Vital Signs Vital Signs: Vital Signs - 24 hr 05/05/24 11:09 05/05/24 15:09 05/05/24 21:14 Temperature 96.4 F L 98.4 F 97.6 F Pulse Rate 80 80 101 H Respiratory Rate 18 18 14 Blood Pressure 126/59 L 125/54 L 112/49 L Pulse Oximetry 96 100 93 Oxygen Delivery 05/05/24 20:00 05/06/24 05:44 05/06/24 08:00 Temperature 97.1 F L Pulse Rate 87 Respiratory Rate 13 Blood Pressure 114/58 L Pulse Oximetry 91 93 Oxygen Delivery Room Air Room Air Intake/Output Intake/Output: Intake & Output 05/03/24 05/04/24 05/05/24 05/06/24 23:59 23:59 23:59 23:59 Intake Total 1250 1820 580 Balance 1250 1820 580 Meds/Results Medications: Active Medications Generic Name Dose Route Start Last Admin Trade Name Freq PRN Reason Stop Dose Admin Acetaminophen 650 mg 05/04/24 13:24 05/06/24 06:11 Acetaminophen 325 Mg Tablet PO 650 mg Q6HR LADY Administration Amlodipine Besylate 2.5 mg 05/05/24 09:00 05/06/24 08:31 Amlodipine Besylate 2.5 Mg Tablet PO 2.5 mg QAM LADY Administration Artificial Tears 1 drop 05/04/24 13:28 Artificial Tears Ophth Soln 15 Ml Bottle EACH EYE Q2H PRN Dry Eye(s) Citalopram Hydrobromide 20 mg 05/05/24 09:00 05/06/24 08:31 Citalopram Hydrobromide 20 Mg Tablet PO 20 mg DAILY LADY Administration Diclofenac Sodium 1 drop 05/04/24 14:00 05/06/24 06:11 Diclofenac Sodium 0.1% Ophth Soln 2.5 Ml Bottle EACH EYE 05/08/24 13:59 1 drop Q8HR LADY Administration Enoxaparin Sodium 40 mg 05/05/24 09:00 05/06/24 08:31 Enoxaparin 40 Mg/0.4 Ml Syringe SUB-Q 40 mg DAILY LADY Administration Famotidine 20 mg 05/04/24 21:00 05/06/24 08:31 Famotidine 20 Mg Tablet PO 20 mg Q12HR LADY Administration Latanoprost 1 drop 05/04/24 21:00 05/05/24 20:55 Latanoprost 0.005% Op Soln 2.5 Ml Btl EAC
[2024-05-06] MEDS: IBUPROFEN IV 800 MG/200 ML 800 MG/200 ML BAG 400 MG IVPB ×2 (13:19→18:08)
[2024-05-06 20:39] VITALS: BP 111/52; PULSE 81; RESP 18; TEMP 36.4; O2SAT 96
[2024-05-06] MEDS: LATANOPROST 0.005% OP SOLN 2.5 ML BTL 1 DROP EACH EYE (20:59)
[2024-05-07] MEDS: IBUPROFEN IV 800 MG/200 ML 800 MG/200 ML BAG 400 MG IVPB ×4 (00:42→17:52)
[2024-05-07 05:47] VITALS: BP 132/58; PULSE 72; RESP 18; TEMP 36.4; O2SAT 96
[2024-05-07] MEDS: ACETAMINOPHEN 325 MG TABLET 650 MG PO ×3 (06:02→17:52)
[2024-05-07] MEDS: LEVOTHYROXINE SODIUM 100 MCG TABLET PO (06:02)
[2024-05-07] MEDS: DICLOFENAC SODIUM 0.1% OPHTH SOLN 2.5 ML BOTTLE 1 DROP EACH EYE ×3 (06:06→21:51)
[2024-05-07 06:23] LABS: Hematocrit 36.2 % (37.0-47.0); Hemoglobin 11.6 g/dL (12.0-15.0); Mean Corpuscular Hemoglobin 29.3 pg (26-34); Mean Corpuscular Volume 91.4 fl (80-100); Mean Platelet Volume 11.1 fl (7.4-10.4); Platelet Count Result 245 k/mm3 (150-375); Red Blood Count 3.96 M/mm3 (4.2-5.4); Red Cell Distribution Width 13.1 % (11.5-14.5); White Blood Count 6.3 K/mm3 (4.5-10.0)
[2024-05-07 06:38] LABS: Anion Gap 5 mmol/L (4-12); Blood Urea Nitrogen 11 mg/dL (7-17); Calcium 8.1 mg/dL (8.4-10.2); Carbon Dioxide 30 mmol/L (22-30); Chloride 103 mmol/L (98-107); Estimated CRCL calculation 60 ml/min; Estimated Glomerular Filt Rate > 60; Glucose 90 mg/dL (65-110); Potassium 3.4 mmol/L (3.4-5.0); Sodium 138 mmol/L (137-145)
[2024-05-07] MEDS: FAMOTIDINE 20 MG TABLET PO ×2 (07:27→20:24)
[2024-05-07 08:00] VITALS: O2SAT 96
[2024-05-07] MEDS: CITALOPRAM HYDROBROMIDE 20 MG TABLET PO (08:22)
[2024-05-07] MEDS: amLODIPine BESYLATE 2.5 MG TABLET PO (08:22)
[2024-05-07] MEDS: ENOXAPARIN 40 MG/0.4 ML SYRINGE SUB-Q (08:23)
[2024-05-07] MEDS: oxyCODONE HCL (*CRX) 5 MG TAB IR PO (08:25)
[2024-05-07 08:52] VITALS: O2SAT 94
[2024-05-07] MEDS: MORPHINE SULFATE (*CRX) 4 MG/ML INJ IV PUSH ×2 (09:31→12:23)
--- NOTE | 2024-05-07 11:17 | PM.PNGS ---
Progress Note: A&P Assessment and Plan (1) Diverticulitis: Code(s): K57.92 - Diverticulitis of intestine, part unspecified, without perforation or abscess without bleeding Status: Acute Assessment and Plan: Tolerating low-fiber diet. Still no bowel movement. Advanced to regular diet. Major problem is still significant abdominal pain. Intravenous ibuprofen has helped but patient not taking p.r.n. analgesics. Encouraged to do so. Needs to have improved pain control still. 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 Probably spigelian hernia repair is contributing to her significant postoperative pain. No fever leukocytosis or other abnormality to suggest intra-abdominal source of pain. Subjective Subjective Date/Time Seen: 05/07/24 11:17 Post Op day: 3 Patient reports: still having pain, tolerating a regular diet (Low-fiber diet), voiding w/o difficulty, flatus, no bowel movement and afebrile Interval history: Patient noticing improvement with Caldolor but discussion with her nurse suggest she is not taking the p.r.n. analgesics. She was encouraged to do so. Still having a great deal of difficulty getting in and out of bed. Review of Systems Review of Systems: All systems reviewed & are unremarkable except as noted in HPI and below (HPI) Exam Const: General: cooperative, no acute distress, alert, awake and uncomfortable Orientation/consciousness: patient oriented x3 and No confusion GI: Inspection: Abdominal wall edema, incision (Dry and healing) and no visible herniation GI Palp: Yes Firmness to palpation present (GI), Yes Tenderness to palpation present (GI) (Diffusely tender especially both lower quadrants), No Hernia present and No Palpable mass present Auscultation: Hypoactive bowel sounds present Objective Data Vital Signs Vital Signs: Vital Signs - 24 hr 05/06/24 20:39 05/06/24 20:00 05/07/24 05:47 Temperature 36.4 C 36.4 C L Pulse Rate 81 72 Respiratory Rate 18 18 Blood Pressure 111/52 L 132/58 L Pulse Oximetry 96 96 Oxygen Delivery Room Air 05/07/24 08:00 05/07/24 08:52 Temperature Pulse Rate Respiratory Rate Blood Pressure Pulse Oximetry 96 94 Oxygen Delivery Room Air Room Air Intake/Output Intake/Output: Intake & Output 05/04/24 05/05/24 05/06/24 05/07/24 23:59 23:59 23:59 23:59 Intake Total 1250 1820 1700 640 Balance 1250 1820 1700 640 Meds/Results Medications: Active Medications Generic Name Dose Route Start Last Admin Trade Name Freq PRN Reason Stop Dose Admin Acetaminophen 650 mg 05/04/24 13:24 05/07/24 06:02 Acetaminophen 325 Mg Tablet PO 650 mg Q6HR LADY Administration Amlodipine Besylate 2.5 mg 05/05/24 09:00 05/07/24 08:22 Amlodipine Besylate 2.5 Mg Tablet PO 2.5 mg QAM LADY Administration Artificial Tears 1 drop 05/04/24 13:28 Artificial Tears Ophth Soln 15 Ml Bottle EACH EYE Q2H PRN Dry Eye(s) Citalopram Hydrobromide 20 mg 05/05/24 09:00 05/07/24 08:22 Citalopram Hydrobromide 20 Mg Tablet PO 20 mg DAILY LADY Administration Diclofenac Sodium 1 drop 05/04/24 14:00 05/07/24 06:06 Diclofenac Sodium 0.1% Ophth Soln 2.5 Ml Bottle EACH EYE 05/08/24 13:59 1 drop Q8HR LADY Administration Enoxaparin Sodium 40 mg 05/05/24 09:00 05/07/24 08:23 Enoxaparin 40 Mg/0.4 Ml Syringe SUB-Q 40 mg DAILY LADY Administration Famotidine 20 mg 05/04/24 21:00 05/07/24 07:27 Famotidine 20 Mg Tablet PO 20 mg Q12HR LADY Administration Ibuprofen 800 mg in 200 mls @ 400 mls/hr 05/06/24 12:45 05/07/24 06:02 Caldolor 800 Mg/200 Ml IVPB 400 mls/hr Q6H LADY Administration Latanoprost 1 drop 05/04/24 21:00 05/06/24 20:59 Latanoprost 0.005% Op Soln 2.5 Ml Btl EACH EYE 1 drop HS LADY Administration Levothyroxine Sodium 100 mcg 05/05/24 06:30
[2024-05-07 14:43] VITALS: BP 134/56; PULSE 72; RESP 16; TEMP 36.2; O2SAT 95
[2024-05-07 20:00] VITALS: BP 153/66; PULSE 85; RESP 18; TEMP 37.1; O2SAT 99
[2024-05-07] MEDS: LATANOPROST 0.005% OP SOLN 2.5 ML BTL 1 DROP EACH EYE (20:24)
[2024-05-08] MEDS: IBUPROFEN IV 800 MG/200 ML 800 MG/200 ML BAG 400 MG IVPB ×4 (00:29→23:41)
[2024-05-08 06:25] VITALS: BP 149/71; PULSE 72; RESP 16; TEMP 36.4; O2SAT 98
[2024-05-08] MEDS: ACETAMINOPHEN 325 MG TABLET 650 MG PO ×2 (06:26→13:07)
[2024-05-08] MEDS: DICLOFENAC SODIUM 0.1% OPHTH SOLN 2.5 ML BOTTLE 1 DROP EACH EYE (06:26)
[2024-05-08] MEDS: LEVOTHYROXINE SODIUM 100 MCG TABLET PO (06:26)
[2024-05-08 08:00] VITALS: PULSE 72; RESP 16; O2SAT 98
[2024-05-08] MEDS: MORPHINE SULFATE (*CRX) 4 MG/ML INJ IV PUSH (09:29)
[2024-05-08] MEDS: CITALOPRAM HYDROBROMIDE 20 MG TABLET PO (10:04)
[2024-05-08] MEDS: FAMOTIDINE 20 MG TABLET PO ×2 (10:04→21:07)
[2024-05-08] MEDS: ENOXAPARIN 40 MG/0.4 ML SYRINGE SUB-Q (10:04)
[2024-05-08] MEDS: amLODIPine BESYLATE 2.5 MG TABLET PO (10:04)
[2024-05-08 14:11] VITALS: BP 132/74; PULSE 70; RESP 16; TEMP 36.8; O2SAT 97
--- NOTE | 2024-05-08 14:50 | PM.PNGS ---
Progress Note: A&P Assessment and Plan (1) Diverticulitis: Code(s): K57.92 - Diverticulitis of intestine, part unspecified, without perforation or abscess without bleeding Status: Acute Assessment and Plan: Still have significant abdominal pain. This did not seem unexpected initially as the surgery turned out to not only be a sigmoidectomy but also robotic repair of a spigelian hernia of good size-4 cm. Still having quite a bit of pain and pain is in the right lower quadrant where the hernia was repaired and the sigmoidectomy was performed more on the left side. Will get CT scan abdomen and pelvis today to check for any intra-abdominal process that may be causing her prolonged pain. 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 Left-sided spigelian hernia. Subjective Subjective Date/Time Seen: 05/08/24 08:50 Post Op day: 4 Patient reports: still having pain, tolerating a regular diet, voiding w/o difficulty, flatus, no bowel movement and afebrile Interval history: Still requiring IV ibuprofen and occasionally IV morphine sulfate. Exam Const: General: cooperative, alert, awake and uncomfortable GI: Inspection: Abdominal wall edema, non-distended and incision (Dry and healing) GI Palp: Yes abdominal tenderness (Diffuse but worse on the right side particularly right lower quadrant), Yes Firmness to palpation present (GI), No Hernia present and No Palpable mass present Auscultation: normal bowel sounds Objective Data Vital Signs Vital Signs: Vital Signs - 24 hr 05/07/24 20:00 05/07/24 20:00 05/08/24 06:25 Temperature 37.1 C 36.4 C L Pulse Rate 85 72 Respiratory Rate 18 16 Blood Pressure 153/66 H 149/71 H Pulse Oximetry 99 98 Oxygen Delivery Room Air 05/08/24 08:00 05/08/24 14:11 Temperature 36.8 C Pulse Rate 72 70 Respiratory Rate 16 16 Blood Pressure 132/74 Pulse Oximetry 98 97 Oxygen Delivery Room Air Intake/Output Intake/Output: Intake & Output 05/05/24 05/06/24 05/07/24 05/08/24 23:59 23:59 23:59 23:59 Intake Total 1820 1700 2510 1000 Output Total 1 Balance 1820 1700 2510 999 Meds/Results Medications: Active Medications Generic Name Dose Route Start Last Admin Trade Name Freq PRN Reason Stop Dose Admin Acetaminophen 650 mg 05/04/24 13:24 05/08/24 13:07 Acetaminophen 325 Mg Tablet PO 650 mg Q6HR LADY Administration Amlodipine Besylate 2.5 mg 05/05/24 09:00 05/08/24 10:04 Amlodipine Besylate 2.5 Mg Tablet PO 2.5 mg QAM LADY Administration Artificial Tears 1 drop 05/04/24 13:28 Artificial Tears Ophth Soln 15 Ml Bottle EACH EYE Q2H PRN Dry Eye(s) Citalopram Hydrobromide 20 mg 05/05/24 09:00 05/08/24 10:04 Citalopram Hydrobromide 20 Mg Tablet PO 20 mg DAILY LADY Administration Enoxaparin Sodium 40 mg 05/05/24 09:00 05/08/24 10:04 Enoxaparin 40 Mg/0.4 Ml Syringe SUB-Q 40 mg DAILY LADY Administration Famotidine 20 mg 05/04/24 21:00 05/08/24 10:04 Famotidine 20 Mg Tablet PO 20 mg Q12HR LADY Administration Ibuprofen 800 mg in 200 mls @ 400 mls/hr 05/06/24 12:45 05/08/24 13:07 Caldolor 800 Mg/200 Ml IVPB 400 mls/hr Q6H LADY Administration Latanoprost 1 drop 05/04/24 21:00 05/07/24 20:24 Latanoprost 0.005% Op Soln 2.5 Ml Btl EACH EYE 1 drop HS LADY Administration Levothyroxine Sodium 100 mcg 05/05/24 06:30 05/08/24 06:26 Levothyroxine Sodium 100 Mcg Tablet PO 100 mcg DAILY@0630 LADY Administration Morphine Sulfate 2 mg 05/04/24 13:24 Morphine Sulfate (*Crx) 2 Mg/Ml Inj IV PUSH Q2H PRN Breakthrough Pain Rated 4-6 or NPO Morphine Sulfate 4 mg 05/04/24 13:24 05/08/24 09:29 Morphine Sulfate (*Crx) 4 Mg/Ml Inj IV PUSH 4 mg Q2H PRN Administration Breakthrough Pain Rated 7-10 or NPO Naloxone HCl 0.1 mg 05/04/24 13:24
[2024-05-08] MEDS: MORPHINE SULFATE (*CRX) 2 MG/ML INJ IV PUSH (19:24)
[2024-05-08 19:56] VITALS: BP 135/65; PULSE 69; RESP 16; TEMP 36.5; O2SAT 99
[2024-05-08 20:00] VITALS: PULSE 69; RESP 16; O2SAT 99
[2024-05-08] MEDS: LATANOPROST 0.005% OP SOLN 2.5 ML BTL 1 DROP EACH EYE (21:08)
[2024-05-09 05:28] VITALS: BP 128/64; PULSE 65; RESP 14; TEMP 36.3; O2SAT 98
[2024-05-09] MEDS: LEVOTHYROXINE SODIUM 100 MCG TABLET PO (06:34)
[2024-05-09] MEDS: amLODIPine BESYLATE 2.5 MG TABLET PO (08:50)
[2024-05-09] MEDS: CITALOPRAM HYDROBROMIDE 20 MG TABLET PO (08:50)
[2024-05-09] MEDS: FAMOTIDINE 20 MG TABLET PO ×2 (08:50→21:53)
[2024-05-09] MEDS: ENOXAPARIN 40 MG/0.4 ML SYRINGE SUB-Q (08:50)
[2024-05-09] MEDS: IBUPROFEN IV 800 MG/200 ML 800 MG/200 ML BAG 400 MG IVPB (08:53)
--- NOTE | 2024-05-09 11:05 | PC.NURSE ---
Patient resting in the bedside chair. Pain reported. Options given. Patient got back in bed without difficulty.
[2024-05-09] MEDS: oxyCODONE/ACETAMINOPHEN (*CRX) 10-325 MG TABLET 1 TAB PO (11:46)
--- NOTE | 2024-05-09 12:55 | PM.PNGS ---
Progress Note: A&P Assessment and Plan (1) Diverticulitis: Code(s): K57.92 - Diverticulitis of intestine, part unspecified, without perforation or abscess without bleeding Status: Acute Assessment and Plan: Right lower quadrant pain and tenderness persist. Etiology not clear to me. Encouraged patient to try Percocet 1st and then use morphine sulfate. She tried a dose of IV ibuprofen yesterday and got little or no relief. No bowel movement as yet. Normal bowel sounds and eating well. CT scan basically negative for a source of persistent pain. Still a soon this is just prolonged postoperative pain. Continue inpatient care until comfortable on oral analgesics. (2) Spigelian hernia: Code(s): K43.9 - Ventral hernia without obstruction or gangrene Status: Acute Assessment and Plan: Repair intact per CT yesterday. Surprisingly, pain is in the right lower quadrant although hernia repair and sigmoid dissection is left lower quadrant. Subjective Subjective Date/Time Seen: 05/09/24 12:55 Post Op day: 5 Patient reports: still having pain (Taking morphine but has not really tried Percocet), tolerating a regular diet, voiding w/o difficulty, flatus, no bowel movement and afebrile Exam Const: General: comfortable and no acute distress Orientation/consciousness: patient oriented x3 GI: Inspection: Abdominal wall edema (Less than last couple of days) and incision (Dry and healing) GI Palp: Yes Soft to palpation, Yes Tenderness to palpation present (GI) (Diffusely tender but most is right lower quadrant.), No Guarding due to palpation present (GI), No Hernia present, No Palpable mass present and No Rebound tenderness present Auscultation: normal bowel sounds Neuro: General: patient oriented x3 and no focal motor deficits Extrem: General: no calf tenderness and no edema Psych: Affect: normal affect Insight: Good insight present (Psych) Judgement: Good judgement present (Psych) Objective Data Vital Signs Vital Signs: Vital Signs - 24 hr 05/08/24 14:11 05/08/24 19:56 05/08/24 20:00 Temperature 36.8 C 36.5 C Pulse Rate 70 69 69 Respiratory Rate 16 16 16 Blood Pressure 132/74 135/65 Pulse Oximetry 97 99 99 Oxygen Delivery Room Air 05/09/24 05:28 Temperature 36.3 C L Pulse Rate 65 Respiratory Rate 14 Blood Pressure 128/64 Pulse Oximetry 98 Oxygen Delivery Intake/Output Intake/Output: Intake & Output 05/06/24 05/07/24 05/08/24 05/09/24 23:59 23:59 23:59 23:59 Intake Total 1700 2510 1590 858 Output Total 1 Balance 1700 2510 8299 858 Meds/Results Medications: Active Medications Generic Name Dose Route Start Last Admin Trade Name Freq PRN Reason Stop Dose Admin Acetaminophen 500 mg 05/08/24 18:00 Acetaminophen 500 Mg Tablet PO Q6H PRN Pain Rated 1-3 Amlodipine Besylate 2.5 mg 05/05/24 09:00 05/09/24 08:50 Amlodipine Besylate 2.5 Mg Tablet PO 2.5 mg QAM LADY Administration Artificial Tears 1 drop 05/04/24 13:28 Artificial Tears Ophth Soln 15 Ml Bottle EACH EYE Q2H PRN Dry Eye(s) Citalopram Hydrobromide 20 mg 05/05/24 09:00 05/09/24 08:50 Citalopram Hydrobromide 20 Mg Tablet PO 20 mg DAILY LADY Administration Enoxaparin Sodium 40 mg 05/05/24 09:00 05/09/24 08:50 Enoxaparin 40 Mg/0.4 Ml Syringe SUB-Q 40 mg DAILY LADY Administration Famotidine 20 mg 05/04/24 21:00 05/09/24 08:50 Famotidine 20 Mg Tablet PO 20 mg Q12HR LADY Administration Ibuprofen 800 mg in 200 mls @ 400 mls/hr 05/08/24 18:00 05/09/24 08:53 Caldolor 800 Mg/200 Ml IVPB 400 mls/hr Q6H PRN Administration Breakthrough Pain Rated 1-3 or NPO Latanoprost 1 drop 05/04/24 21:00 05/08/24 21:08 Latanoprost 0.005% Op Soln 2.5 Ml Btl EACH EYE 1 drop HS LADY Administration Levothyroxine Sodium 100 mcg 05/05/24 06:30 05/09/24 06:34 Levothyroxine Sodium 100 Mcg Tablet PO 100 mcg DAILY@0630 [facility] Ad
[2024-05-09 14:42] VITALS: BP 132/52; PULSE 69; RESP 16; TEMP 35.8; O2SAT 100
[2024-05-09 20:00] VITALS: PULSE 69; RESP 16; O2SAT 100
[2024-05-09 21:28] VITALS: BP 146/52; PULSE 71; RESP 14; TEMP 36.4; O2SAT 98
[2024-05-09] MEDS: LATANOPROST 0.005% OP SOLN 2.5 ML BTL 1 DROP EACH EYE (21:53)
[2024-05-10] MEDS: LEVOTHYROXINE SODIUM 100 MCG TABLET PO (05:29)
[2024-05-10] MEDS: oxyCODONE/ACETAMINOPHEN (*CRX) 10-325 MG TABLET 1 TAB PO ×2 (05:30→12:31)
[2024-05-10 08:00] VITALS: BP 140/76; PULSE 75; RESP 18; TEMP 36.2; O2SAT 100
[2024-05-10] MEDS: FAMOTIDINE 20 MG TABLET PO (09:25)
[2024-05-10] MEDS: CITALOPRAM HYDROBROMIDE 20 MG TABLET PO (09:25)
[2024-05-10] MEDS: amLODIPine BESYLATE 2.5 MG TABLET PO (09:25)
[2024-05-10] MEDS: ENOXAPARIN 40 MG/0.4 ML SYRINGE SUB-Q (09:25)
[2024-05-10] MEDS: polyethylene glycoL 3350 17 GM POWD.PACK PO (09:25)
--- NOTE | 2024-05-10 10:15 | PM.PNGS ---
Progress Note: A&P Assessment and Plan (1) Diverticulitis: Code(s): K57.92 - Diverticulitis of intestine, part unspecified, without perforation or abscess without bleeding Status: Acute Assessment and Plan: Stimulate bowels with MiraLax and Relistor. Pain control seems to be improved today and is likely all incisional. Encouraged increased activity. Possibly home later today or tomorrow. (2) Spigelian hernia: Code(s): K43.9 - Ventral hernia without obstruction or gangrene Status: Acute Assessment and Plan: Hernia repair intact on CT 05/08. Subjective Subjective Date/Time Seen: 05/10/24 10:15 Interval history: Having some RLQ incisional pain. Passing flatus, but hasn't had a BM since POD 2. Tolerating regular diet without bloatin or nausea. Exam GI: Inspection: non-distended and incision (intact with glue. minimal pink edges around RLQ incision, no erythema.) GI Palp: Yes Soft to palpation, Yes Tenderness to palpation present (GI) (RLQ incision), No Guarding due to palpation present (GI) and No Hernia present Auscultation: normal bowel sounds Objective Data Vital Signs Vital Signs: Vital Signs - 24 hr 05/09/24 14:42 05/09/24 20:00 05/09/24 21:28 Temperature 96.5 F L 97.6 F Pulse Rate 69 69 71 Respiratory Rate 16 16 14 Blood Pressure 132/52 L 146/52 H Pulse Oximetry 100 100 98 Oxygen Delivery Room Air 05/10/24 08:00 Temperature 97.1 F L Pulse Rate 75 Respiratory Rate 18 Blood Pressure 140/76 Pulse Oximetry 100 Oxygen Delivery Intake/Output Intake/Output: Intake & Output 05/07/24 05/08/24 05/09/24 05/10/24 23:59 23:59 23:59 23:59 Intake Total 2510 3390 1918 658 Output Total 1 Balance 8970 6933 1914 658 Meds/Results Medications: Active Medications Generic Name Dose Route Start Last Admin Trade Name Freq PRN Reason Stop Dose Admin Acetaminophen 500 mg 05/08/24 18:00 Acetaminophen 500 Mg Tablet PO Q6H PRN Pain Rated 1-3 Amlodipine Besylate 2.5 mg 05/05/24 09:00 05/10/24 09:25 Amlodipine Besylate 2.5 Mg Tablet PO 2.5 mg QAM LADY Administration Artificial Tears 1 drop 05/04/24 13:28 Artificial Tears Ophth Soln 15 Ml Bottle EACH EYE Q2H PRN Dry Eye(s) Citalopram Hydrobromide 20 mg 05/05/24 09:00 05/10/24 09:25 Citalopram Hydrobromide 20 Mg Tablet PO 20 mg DAILY LADY Administration Enoxaparin Sodium 40 mg 05/05/24 09:00 05/10/24 09:25 Enoxaparin 40 Mg/0.4 Ml Syringe SUB-Q 40 mg DAILY LADY Administration Famotidine 20 mg 05/04/24 21:00 05/10/24 09:25 Famotidine 20 Mg Tablet PO 20 mg Q12HR LADY Administration Ibuprofen 800 mg in 200 mls @ 400 mls/hr 05/08/24 18:00 05/09/24 09:25 Caldolor 800 Mg/200 Ml IVPB Infused Q6H PRN Infusion Breakthrough Pain Rated 1-3 or NPO Latanoprost 1 drop 05/04/24 21:00 05/09/24 21:53 Latanoprost 0.005% Op Soln 2.5 Ml Btl EACH EYE 1 drop HS LADY Administration Levothyroxine Sodium 100 mcg 05/05/24 06:30 05/10/24 05:29 Levothyroxine Sodium 100 Mcg Tablet PO 100 mcg DAILY@0630 LADY Administration Morphine Sulfate 2 mg 05/04/24 13:24 05/08/24 19:24 Morphine Sulfate (*Crx) 2 Mg/Ml Inj IV PUSH 2 mg Q2H PRN Administration Breakthrough Pain Rated 4-6 or NPO Morphine Sulfate 4 mg 05/04/24 13:24 05/08/24 09:29 Morphine Sulfate (*Crx) 4 Mg/Ml Inj IV PUSH 4 mg Q2H PRN Administration Breakthrough Pain Rated 7-10 or NPO Naloxone HCl 0.1 mg 05/04/24 13:24 Naloxone Hcl 0.4 Mg/Ml Vial IV PUSH Q2M PRN Opiate Reversal Oxycodone/Acetaminophen 1 tablet 05/08/24 14:58 Oxycodone/Acetaminophen (*Crx) 5-325 Mg Tablet PO Q4H PRN Pain Rated 4-6 Oxycodone/Acetaminophen 1 tab 05/08/24 14:58 05/10/24 05:30 Oxycodone/Acetaminophen (*Crx) 10-325 Mg Tablet PO 1 tab Q6H PRN Administration Pain Rated 7-10 Polyethylene Glycol 17 gm 05/10/24 09:00 09
[2024-05-10] MEDS: METHYLNALTREXONE 12 MG/0.6 ML VIAL SUB-Q (10:59)
--- NOTE | 2024-05-10 15:38 | PM.DS ---
DS: Admitting Diagnosis Discharge Date 05/10/24 Admitting Diagnosis Recurrent diverticulitis DS: Discharge Diagnosis Discharge Diagnosis (1) Diverticulitis: Code(s): K57.92 - Diverticulitis of intestine, part unspecified, without perforation or abscess without bleeding Status: Acute (2) Spigelian hernia: Code(s): K43.9 - Ventral hernia without obstruction or gangrene Status: Acute DS: Summary Hospital Course Reason for hospitalization: 68 yo woman presents for sigmoid colectomy for recurrent diverticulitis. She has had multiple episodes of diverticulitis over the past several years. Hospital Course: Patient underwent laparoscopic sigmoid colectomy with colorectal anastomosis, da Vika assisted, laparoscopic 4 cm left spigelian hernia repair on 05/04/[address] Eason. She was found to have a LLQ spigelian hernia containing omentum during surgery which was primarily repaired. She was admitted postoperatively and her diet was slowly advanced as tolerated. Bowel function began returning on postop day 2 and she had a few liquid stools, but no bowel movements since then. She has been tolerating a solid diet for days. She had issues with postoperative pain control and had RLQ pain following surgery. Labs remained stable. Due to her uncontrolled pain, she had a CT scan of the abdomen and pelvis on postop day 4, which showed postoperative changes but no concerning acute intra-abdominal process that would cause prolonged pain. Her activity was slowly increased and she began ambulating in the halls. She was able to transition to oral analgesics. Her abdominal pain is better controlled today and is likely incisional pain. Since her bowels have not been moving for the past few days, she was also given a dose of Relistor and started on Miralax. I discussed the case with Dr. Eason who evaluated the patient earlier today and felt she was surgically stable for discharge. She will follow-up with Dr. Eason as scheduled in 10 days and all discharge instructions were discussed in detail. Status at Discharge Functional status at discharge: independent ambulation Overall status at discharge: patient is progressing back to baseline Time Spent with Patient Time attestation: Total time spent providing and/or coordinating discharge services: DS: Data Data Completed and Pending Completed studies during hospitalization: Pending at discharge 05/04/24 11:28 Surgical [PTH] Routine Procedures/Treatments: Procedures Operation Date: 05/04/24 07:30 Actual Procedure Side Surgeon p Laparoscopic Sigmoid Colectomy, Davinci Assisted, and Repair of Left Spigelian Hernia Not Applicable Eric Eason, DO Imaging Radiologist's impression: ITS Impressions Abdomen/Pelvis CT 05/08/24 19:20 IMPRESSION: 1. Subcutaneous air tissues of the abdomen and upper right side. 2. Postoperative changes in the sigmoid colon with slight thickening of the wall in the area with surrounding fat stranding which may be postoperative. 3. Minimal free air around the rectum. Follow-up advised. Discharge Plan Discharge Attending physician on discharge: Eric Eason Discharging Clinician: Antonella Sampson Anticipated Discharge Date/Time: 05/10/24 15:38 Patient Disposition: Home, Self-Care Activity: may shower and no driving Diet: as tolerated and regular Wound Care Instructions: incision open to air Discharge Instructions: Follow-up with Dr. Eason as scheduled on 05/20/24 at 1:45 pm in our office. Call sooner with surgical questions or concerns. Walk at least 3 times daily. Stairs are okay. No driving for 1 week No lifting more than 10 lbs until instructed differently by your surgeon. Incisions are left open to air. You may shower over your incisions with mild soap and water. You can take Tylenol and Ibuprofen over the counter as needed for pain. Opioid pain medication has also been electronically sent to
== END 2024-05-10 16:10 | disposition home or self-care (01) | DRG 331 ==
LOC: ANH3MEDSUR 14:10
PROVIDERS: Admitting Provider Surgery; PCP Physician Assistant; Visit Provider Nurse Practitioner Family
PROC: 0DTN4ZZ Resection of Sigmoid Colon, Percutaneous Endoscopic Approach (ICD-10-PCS; principal; 2024-05-04 07:30)
DX: K57.32 Diverticulitis of large intestine without perforation or abscess without bleeding (principal); K43.9 Ventral hernia without obstruction or gangrene; E03.9 Hypothyroidism, unspecified; M19.90 Unspecified osteoarthritis, unspecified site; Z90.49 Acquired absence of other specified parts of digestive tract
CPT/HCPCS: 36415; 74177; 80048; 85027; 88307; A9270; C1729; J0690; J1100; J1170; J1650; J1741; J1836; J1885; J2212; J2250; J2270; J2405; J2550; J2704; J3010; J7120; Q9967

== ENCOUNTER 2024-12-24 10:01 | Outpatient (CLI) | payer MEDICARE, SELFPAY ==
--- NOTE | ~2024-12-24 | CT_ITS ---
Non-contrast CT scan of the Pelvis Clinical indication: Left lower quadrant pain Technique: 2.5 mm axial scans were obtained through the pelvis without intravenous or oral contrast. Dose reduction technique was used on this scan by utilizing automated exposure control and iterative reconstruction technique. The dose-length product (DLP) was 475.15 mGy-cm. COMPARISON: 05/08/2024 Findings: There is probable minimal haziness in the central mesentery, suggestive of minimal mesenter ic panniculitis. Distal abdominal aorta unremarkable. Urinary bladder unremarkable. No adnexal mass e vident. Visualized bowel loops are unremarkable aside from rectosigmoid anastomosis. No ascites prese nt. No pelvic mass seen. Visualized soft tissues and musculature unremarkable. Impression: Possible minimal mesenteric panniculitis. Reviewed, dictated and finalized at location M. Impression: Possible minimal mesenteric panniculitis.
== END 2024-12-24 10:02 | disposition home or self-care (01) ==
LOC: MICIMG 10:02
PROVIDERS: PCP Physician Assistant; Visit Provider Surgery
DX: R10.32 Left lower quadrant pain (principal); Z98.890 Other specified postprocedural states; Z87.19 Personal history of other diseases of the digestive system
CPT/HCPCS: 72192

== ENCOUNTER 2025-02-08 08:37 | Outpatient (CLI) | payer MEDICARE, SELFPAY ==
--- NOTE | ~2025-02-08 | MM_ITS ---
EXAMINATION: MM screening david BI w jermaine HISTORY: Screening mammogram TECHNIQUE: Craniocaudal and mediolateral oblique 3-D tomosynthesis images were obtained and synthetic 2-D images were generated. CAD analysis was submitted and interpreted. COMPARISON: 11/23/2022 BREAST PARENCHYMAL COMPOSITION:Not Dense. The breasts are almost entirely fatty FINDINGS: No suspicious mass, calcification, or architectural distortion are identified in either zeeshan ast to suggest malignancy. There has been no suspicious interval change. IMPRESSION: No mammographic evidence of malignancy. Recommend routine screening mammography in one year. BI-RADS Category 1: Negative Reviewed, dictated and finalized at location .
--- OUTSIDE RECORDS SUMMARY | 2025-02-08 08:44 | XMS_ITS | Data Portability ---
Author Organization [facility] Address [address] [place] [address] Assessment No assessment recorded. Plan of Treatment Reminders Order Date Submit Date Provider Last Modified By Organization Details Last Modified Time Details Appointments ANY 15 2025 10:00A M LEONIDES Martin Not available Not available Not available Lab hepatic function panel, serum [address] [facility], [address] [place] [address], [id number], 02/01/2025 12:11:33 BMP, serum or plasma [address] [facility], [address] [place] [address], [id number], 02/01/2025 12:11:33 CBC w/ auto diff [address] [facility], [address] [place] [address], [id number], 02/01/2025 12:11:33 vitamin B12 + folate, serum or blood [address] [facility], [address] [place] [address], [id number], 02/01/2025 12:11:33 lipid panel, serum [address] [facility], [address] [place] [address], [id number], 02/01/2025 12:11:33 hemoglobi n A1c, QN, blood [address] [facility], [address], [place], [address], 02/01/2025 12:11:33 TSH + free T4, serum [address] [facility], [address], [place], [address], 02/01/2025 12:11:33 Referral general surgeon referral 2023 024 Eric Eason DO, [address], [address], [place], [address], 06/07/2024 14:25:25 Procedures None recorded. Surgeries None recorded. Imaging CT, abdomen + pelvis, w/ contrast 2023 024 [facility] (Imaging), [address], [place], [address], 03/23/2024 10:52:57 CT, abdomen + pelvis, w/ contrast - f/u on left sided diverticu lits. pt still having notable pain 2023 024 [facility] (Imaging), [address], [place], [address], 10/17/2023 13:43:06 Medication Orders amlodipin e 5 mg tablet 2024 025 [facility] #[id number], [address], [place], [place], [id number], 02/01/2025 12:11:08 amoxicill in 875 mg-potass ium clavulana te 125 mg tablet 2023 024 [facility] #[id number], [address], [place], [place], [phone], 06/01/2024 13:49:15 famotidin e 20 mg tablet 2023 024 [id number], [address], [place], [place], [id number], 10/20/2023 16:49:14 Patient TargetsNo targets recorded. Patient Instructions Encounter Date Encounter Id Patient Instructions Last Modified By Organization Details Last Modified Time 02/01/2025 [id number] A healthy lifestyle: care instructions [place] [id number] Not available 02/01/2025 12:10:59 Reason for Referral General Surgeon Referral for Diverticular disease of colon continued episodes with diverticulitis. consult for surgery. Referring Physician: Sherri Hernandez, Internal Medicine, Encounter Date: 03/23/2024 Results Created Date Observation Date Name Description Value Unit Range Abnormal Flag Note LastModifiedBy Organization Detail LastModifiedTime 10/17/19 24 10/17/2023 CT, abdom en + pelvi s, w/ contr ast No observ ation record ed. [address] [facility] [address], [place], [address], 10/19/2023 13:45:53 02/11/2002/11/2024 CT, abdom en + pelvi s, w/ contr ast No observ ation record ed. [address], [address], 02/12/2024 09:28:48 03/23/2003/23/2024 CT, abdom en + pelvi s, w/ contr ast No observ ation record ed. [facility] (Imaging) [address] [place] [address], [address], 03/23/2024 11:34:59 05/09/20 24 05/08/2024 CT, abdom en + pelvi s, w/ contr ast No observ ation record ed. [address], [address], 05/09/2024 08:49:33 12/25/19 25 12/24/2024 CT, abdom en + pelvi s, w/ contr ast No observ ation record ed. [facility] [address], [place], [address], 12/29/2024 10:59:26 Result Notes None recorded. Problems Name Problem SNOMED Code Status Onset Date Resolution Date Notes Provider Name and Address Organization Details Recorded Time Diverticulitis 235804060 Active 2023 Tierra Stevens null, [place] - [facility] 4 10:24:26 Benign essential hypertension 1557102 Active 2023 Tierra [place] [facility] 4 10:24:33 Generalized anxiety disorder 82663357 Active 2023 Tierra [place], [place] [facility] 4 10:24:44 Hypothyroidism 96311116 Active 2023 Tierra [place], [place] [facility] 4 10:24:54 Diverticular disease of colon 716182575 Active 2023 LEONIDES Martin Attn: Stanislaw wren,[address] [place], [address], [place] [facility] 4 18:18:42 Long-term current use of drug therapy 309329256 Active 2024 LEONIDES Martin Attn: Stanislaw wren,[address] [place], [address], [place] [facility] 5 11:58:38 Overweight in adulthood with body mass index of 25 or more but less than 30 958745180 Active 2024 LEONIDES Martin Attn: Stanislaw wren,[address] [place], [address], [place] [facility] 5 11:58:46 Gastroesophage al reflux disease 350256747 Active 2024 LEONIDES Martin Attn: Stanislaw wren,[address] [place], [address], [facility] - [facility] 5 00:12:45 Blood glucose outside reference range 513574141 Active 2024 LEONIDES Martin Attn: Stanislaw wren,[address] [facility], [place], [address], [facility] - [facility] 5 00:12:55 Problem Notes None recorded. Procedures Surgical History Date Name Laterality Status Provider Name and Address Organization Details Recorded Time Breast Surgery completed Jack Beltran MA [place] - [facility] 10/17/2023 10:33:29 Imaging Results None recorded. Procedure Notes None recorded. Medical Equipment None Reported. Allergies Allergen ID Allergen Name Allergen Category Reaction Reaction Severity Criticality Documentation Date Start Date Code Code System Note Provider Name and Address Organization Details Recorded Time 16731016 codeine medicatio n Not available Not available Not available 10/17/2023 2670 RxNorm ALIA Monzon, [facility] 4 09:51:02 099975 tramadol medicatio n Not available Not available Not available 10/17/2023 04761 RxNorm ALIA Monzon, [facility] 4 09:51:12 607688 levofloxa alice medicatio n vomiting Not available Not available 10/17/2023 09657 RxNorm sweat ing ALIA Monzon, [facility] 4 09:51:59 Medications Name Sig Start Date Stop Date Status Note LastModified by Organization Details LastModified Time latanoprost 0.005 % eye drops INSTILL 1 DROP INTO BOTH EYES AT BEDTIME active Not Available Not Available No t Available azithromyci n 250 mg tablet 10/06 completed Not Available Not Available Not Available benzonatate 200 mg capsule TAKE 1 CAPSULE BY MOUTH THREE TIMES DAILY NEEDED 10/06 completed Not Available Not Available Not Available hydrocodone 5 mg-acetamin ophen 325 mg tablet TAKE 1 TABLET BY MOUTH EVERY 6 HOURS FOR 3 DAYS NEEDED FOR PAIN 06/01 completed Not Available Not Available Not Available flurbiprofe n 0.03 % eye drops INSTILL 1 DROP IN LEFT EYE THREE TIMES DAILY 02/01 completed Not Available Not Available Not Available amlodipine 2.5 mg tablet TAKE 1 TABLET BY MOUTH DAILY 02/01 completed Not Available Not Available Not Available metronidazo le 500 mg tablet TAKE 1 TABLET BY MOUTH EVERY 8 HOURS FOR 10 DAYS 06/01 completed Not Available Not Available Not Available amlodipine 5 mg tablet Take 1 tablet every day by oral route. 2024 active Not Available Not Available Not Avai lable ciprofloxac in 500 mg tablet TAKE 1 TABLET BY MOUTH AT 2PM THE DAY OF SURGERY 06/01 completed Not Available Not Available Not Available triamcinolo ne acetonide 0.1 % topical cream APPLY TOPICALLY A THIN LAYER BETWEEN BREASTS ON RASH TWICE DAILY 10/06 completed Not Available Not Available Not Available levothyroxi ne 100 mcg tablet TAKE 1 TABLET BY MOUTH DAILY active Not Available Not Available No t Available citalopram 20 mg tablet TAKE 1 TABLET BY MOUTH DAILY active Not Available Not Available No t Available famotidine 20 mg tablet TAKE 1 TABLET BY MOUTH TWICE DAILY WITH MEALS active Not Available Not Available No t Available prednisolon e acetate 1 % eye drops,suspe nsion 01/31 completed Not Available Not Available Not Available ciprofloxac in 0.3 % eye drops 10/06 completed Not Available Not Available Not Available prednisone 50 mg tablet TAKE 1 TABLET BY MOUTH EVERY DAY FOR 5 DAYS 10/06 completed Not Available Not Available Not Available nystatin 100,000 unit/gram topical powder APPLY EXTERNALL Y TO THE AFFECTED AREA BETWEEN BREASTS TWICE DAILY 10/06 completed Not Available Not Available Not Available levofloxaci n 750 mg tablet TAKE 1 TABLET BY MOUTH DAILY 10/06 completed Not Available Not Available Not Available albuterol sulfate HFA 90 mcg/actuati on aerosol inhaler INHALE 1 TO 2 PUFFS BY MOUTH EVERY 4 HOURS NEEDED FOR SHORTNESS OF BREATH active Not Available Not Available No t Available timolol maleate 0.5 % eye drops 02/01 completed Not Available Not Available Not Available ondansetron 4 mg disintegrat ing tablet DISSOLVE 1 TABLET ON THE TONGUE EVERY 8 HOURS NEEDED FOR NAUSEA OR VOMITING active Not Available Not Available No t Available amoxicillin 875 mg-potassiu m clavulanate 125 mg tablet TAKE 1 TABLET BY MOUTH EVERY 12 HOURS 06/01 completed Not Available Not Available Not Available Premarin 0.625 mg/gram vaginal cream APPLY VAGINALLY TWICE WEEKLY. active Not Available Not Available No t Available Vitals Date Recorded Systolic blood pressure Diastolic blood pressure Systolic blood pressure Diastolic blood pressure Provider Name and Address Organization Details Last Updated DateTime 10/17/2023 134 mm[Hg] 80 mm[Hg] 140 mm[Hg] 80 mm[Hg] LEONIDES Martin Attn: Accounting ,[address] [place], [address] , [facility] 10:19:31 Date Recorded Body height Body mass index (BMI) Body weight Heart rate Respiratory rate Oxygen saturation Oxygen saturation in Arterial blood by Pulse oximetry Systolic blood pressure Diastolic blood pressure Provider Name and Address Organization Details Last Updated DateTime 4 165.74 cm 27.6 kg/m2 18556.9 3 g 78 /min 20 /min 100 % 100 % 145 mm[Hg] 85 mm[Hg] Jack Beltran MA [facility] 4 09:54:45 Date Recorded Systolic blood pressure Diastolic blood pressure Provider Name and Address Organization Details Last Updated DateTime 02/01/2025 140 mm[Hg] 80 mm[Hg] LEONIDES Martin Attn: Accounting,[address] [place], [address], [facility] 02/01/2025 12:10:22 Date Recorded Body height Body mass index (BMI) Body weight Respiratory rate Heart rate Oxygen saturation Oxygen saturation in Arterial blood by Pulse oximetry Systolic blood pressure Diastolic blood pressure Provider Name and Address Organization Details Last Updated DateTime 5 165.74 cm 27.4 kg/m2 26232.3 3 g 16 /min 86 /min 98 % 98 % 138 mm[Hg] 82 mm[Hg] Tierra Stevens [facility] 5 11:45:59 Date Recorded Systolic blood pressure Diastolic blood pressure Provider Name and Address Organization Details Last Updated DateTime 03/23/2024 130 mm[Hg] 80 mm[Hg] LEONIDES Martin Attn: Accounting,[address] [place], [address], [facility] 03/23/2024 09:20:36 Date Recorded Body height Body mass index (BMI) Body weight Respiratory rate Oxygen saturation Oxygen saturation in Arterial blood by Pulse oximetry Heart rate Systolic blood pressure Diastolic blood pressure Provider Name and Address Organization Details Last Updated DateTime 165.74 cm 27.4 kg/m2 71483.4 8 g 20 /min 99 % 99 % 77 /min 138 mm[Hg] 88 mm[Hg] Jack Beltran MA [facility] 09:05:10 Date Recorded Body height Provider Name an d Address Organization Details Last Updated DateTime 07/01/2024 165.74 cm Chela Field LPN [facility] 07/01/20 14:02:39 Social History Question Answer Notes LastModified by Organizat ion Details LastModified Time Tobacco Smoking Status Never Smoker Jack Beltran MA null, [facility] 10/17/2023 09:53:17 Are You Blind Or Do You Have Difficulty Seeing? No Glasses, Cataracts Information not available 10/17/2023 What Is Your Level Of Caffeine Consumption? Occasional Tea Information not available 10/17/2023 In The 14 Days Before Symptom Onset, Have You Had Close Contact With A Laboratory-confi rmed COVID-19 While That Case Was Ill? No Information not available 10/17/2023 In The 14 Days Before Symptom Onset, Have You Had Close Contact With A Person Who Is Under Investigation For COVID-19 While That Person Was Ill? No Information not available 10/17/2023 Have You Been To An Area Known To Be High Risk For COVID-19? No Information not available 10/17/2023 Are You Deaf Or Do You Have Serious Difficulty Hearing? No Information not available 10/17/2023 What Type Of Diet Are You Following? REGULAR Information not available 10/17/2023 Are There Any Guns Present In Your Home? No Information not available 10/17/2023 What Was The Date Of Your Most Recent Tobacco Screening? 02/01/2025 [email or web address] Information not available 02/01/2025 Do You Use Your Seat Belt Or Car Seat Routinely? No Information not available 10/17/2023 Do You Have Smoke And Carbon Monoxide Detectors In Your Home? Yes Information not available 10/17/2023 Do You Use Sunscreen Routinely? Yes [email or web address] Information not available 02/01/2025 Has Tobacco Cessation Counseling Been Provided? No Information not available 10/17/2023 Sex: Female Functional Status Question Answer Note LastModified by Organizat ion Details LastModified Time Do you use any illicit or recreational drugs? No Information not available 10/17/2023 What is your level of alcohol consumption? Occasional ocasionally Information not available 10/17/2023 Are you able to care for yourself? Yes Information not available 10/17/2023 What is your exercise level? None Information not available 10/17/2023 Mental Status None recorded. Family History Relationship Description Onset Age of this Age Resolved Age Notes LastModified by Organization Details LastModified Time Mother Diabetes mellitus [email or web address] Not available 2023 10:33:47 Mother Hypertensive disorder [email or web address] Not available 2023 10:34:13 Father Heart disease [email or web address] Not available 2023 10:34:03 Sister Migraine [email or web address] Not availabl e 10/17/2023 10:34:24 Medical History Condition Response Coronary Artery Disease N Other N High Blood Pressure N Atrial Fibrillation N Kidney or Bladder Problems N Thyroid Problems Y GI Problems N Depression N COPD N Blood Clots N Skin Problems N Anemia N Heart Attack (ID) N Anxiety Disorder N Diabetes N Muscle, Joint, or Bone Problems N Seizures/Epilepsy N Acid Reflux (GERD) N Cancer N Stroke N Asthma N Allergies N High Cholesterol N Hepatitis N Liver Disease N Headaches N Heart Failure N Osteoporosis N Gynecological History Statement/Question Response Menses Monthly N Current Control Method Menopause Obstetrics History GPAL:G 0 P 0 0 0 0 Immunizations Vaccine Type Date Status Note Provider Nam e and Address Organization Details Recorded Time influenza, unspecified formulation 2 completed Not Available [facility] 02/01/2025 11:37:25 influenza, unspecified formulation 3 completed Not Available [facility] 02/01/2025 11:37:25 influenza, unspecified formulation 4 completed Not Available [facility] 02/01/2025 11:37:25 COVID-19, mRNA, LNP-S, PF, 30 mcg/0.3 mL dose 1 completed Not Available [facility] 02/01/2025 11:37:25 COVID-19, mRNA, LNP-S, PF, 30 mcg/0.3 mL dose 1 completed Not Available [facility] 02/01/2025 11:37:25 Influenza, high-dose, trivalent, PF 4 completed Juan A Rivero MA null, [place] [facility] 07/01/2024 14:17:08 Influenza, high-dose, trivalent, PF 4 completed LEONIDES Martin Attn: Accounting,[address] [facility], [place], [address], [facility] 07/01/2024 14:16:53 Past Encounters Encounter ID Performer Location Encounter Start Date Encounter Closed Date Diagnosis/Indication Diagnosis SNOMED-CT Code Diagnosis ICD10 Code Diagnosis Note [id number] Keanu Moss MD [facility] [address] [place] [address] 10/17/2023 09:38:03 10/17/2023 10:24:07 Diverticulitis 955029541 K57.[address] scan a/p w/c. compare to prior in the ER .Update: CT scan shows diverticul osis only, stable. no acute abscess or inflammati on. pt to continue abx course and will be cleared for cataract surgery as needed Benign ess ential hypertension 6842203 I10 stable on amlodipine 2.5mg daily. Generalize d anxiety disorder 20752584 F41.1 stable on citalopram 20mg daily. Hypothyroidism 89719903 E03.9 stable on levothyrox ine 100mcg daily Long-term drug therapy 355478828 Z79.899 Pre-surger y evaluation 820344762 Z01.818 cleared for upcoming cataract surgery. [id number] Keanu Moss MD [facility] [place] [address] [place] [address] 03/23/2024 08:59:52 03/23/2024 09:49:34 Diverticulitis 137158921 K57.[address] scan a/p w/c.Start Augmentin 875 mg twice daily for 10 days. Also referral to General surgery given because she will need consultati on for colon resection with numerous episodes of diverticul itis. Diverticul ar disease of colon 949227300 K57.30 Underlying history of diverticul ar disease with multiple episodes of diverticul itis, refer to general surgery for consultati on Left sided abdominal pain 806516442 R10.9 As above [id number] Keanu Moss MD [facility] [employer] [address] [place] [address] 07/01/2024 13:59:44 07/01/2024 14:37:25 Administration of influenza vaccine 46618528 Z23 [id number] Keanu Moss MD [facility] [employer] [address] [place] [address] 02/01/2025 11:35:09 02/01/2025 12:18:42 Overweight in adulthood with body mass index of 25 or more but less than 30 459139405 E66.3 Z68.27 A1c 27.4 Benign ess ential hypertension 7463856 I10 Blood pressure is 140/80 today. We are going to boost amlodipine to 5 mg daily dosing to maximize treatment. Generalize d anxiety disorder 11215720 F41.1 stable on citalopram 20mg daily. Hypothyroidism 56981428 E03.9 stable on levothyrox ine 100mcg daily. Thyroid function labs are due Diverticul ar disease of colon 381963908 K57.30 Stable, up-to-date on colonoscop y Long-term current use of drug therapy 188346937 Z79.899 All routine labs ordered Cholesterol screening 27 6475164 Z13.220 Fasting lipids due Blood gluc ose outside reference range 012626324 R73.09 Due for updated A1c Gastroesop hageal reflux disease 777292066 K21.9 Acid reflux stable on famotidine 20 mg twice daily Health Concerns Section Related Observation LastModified by Organization Detai ls LastModified Time None Recorded Concern Status LastModified by Organization Details LastModified Time None Recorded Advance Directives Directive None Recorded Payers Insurance Date Sequence Insurance Name Policy Number Policy Pickett Covered Member ID Pickett Member ID Guarantor Name 02/01/2025 1 [place] Flori Bauer [id number] Flori Bauer 02/01/2025 [place] - [place] - [place] Flori Bauer [id number] Flori Bauer 02/04/2025 2 AARP Flori Bauer [id number] Flori Bauer Notes Date Note Type Note Provider Name and Address Organization Details Recorded Time 10/17/19 24 text/htm l Abdominal PainReported bypatient.Location:[facility]; [facility] Quality:pain Severity:moderate; pain level 7/10 Duration:constant Associated Symptoms:no fever; no chills; no blood in the urine; no heartburn; no shortness of breathAnxiety/DepressionReporte d bypatient.Notes:stable on citalopram 20mg daily.Generic HPI TemplateReported bypatient.Notes:pt also needs pre-op evaluation for cataract surgeryHypertensionReported bypatient.Notes:stable on medication.ThyroidReported bypatient.Notes:stable on thyroid supplement. LEONIDES Martin Attn: Accounting,[address] [place], [address], [facility] [place] [place] 10/20/2023 16:51:38 03/23/20 24 text/htm l Abdominal PainReported bypatient.Location:[facility]; [facility] Quality:pain Severity:moderate Duration:constant Context:History of multiple episodes of diverticulitis Modifying Factors:nothing gives relief Associated Symptoms:no fever; no chills; no blood in the urine; no heartburn; no shortness of breath Other:denies possible pregnancyNotes:Patient reports that for the past 2 months the pain just has not resolved. She does have a history of diverticulitis and she is suspecting that is the continued cause. LEONIDES Martin Attn: Accounting,[address] [facility], [place], [address], [facility] [place] [place] 04/10/2024 18:18:57 02/02/20 25 text/htm l Anxiety/DepressionReported bypatient.Modifying Factors:medications as directedNotes:stable on citalopram 20mg daily.HypertensionReported bypatient.Duration:has noted for years Onset/Timing:better Alleviating Factors:medication Associated Symptoms:no shortness of breath; no fatigue; no palpitations; no decline in exercise capacity; no snoringNotes:stable on medication.ThyroidReported bypatient.Quality:not changing Duration:constant Onset/Timing:still present Context:history of thyroid disease;history of hypothyroidism Modifying Factors:medication Exercisegets exercise; walks 2 times per week Associated Symptoms:no cold intolerance; no heat intolerance; no weight loss; no weight gain; no double vision; no dry eyes; no hoarseness; no difficulty swallowing; no neck masses; no deepening of the voice; no fast heart rate; no increased blood pressure; no palpitations; no chest pain; no chest tightess or pressure; no constipation; no diarrhea; no vomiting; no decreased appetite; no loose stools; no irregular menstrual periods; no excessive sweating; no joint pain; no numbness; no tingling of the hands or feet; no dry skin; no tremor; no nervousness; no anxiety; no depression; no fatigue; no sleep difficulties; no skin changes; no hair changesNotes:stable on thyroid supplement. LEONIDES Martin Attn: Accounting,[address] [place] [address], [address], [place] [facility] 02/04/2025 00:13:40 OBGyn Episode No OBEpisode recorded.
--- OUTSIDE RECORDS SUMMARY | 2025-02-08 08:44 | XMS_ITS | Clinical Summary ---
Author Organization [facility] Address [address] [place] [address] Care Team Providers Care Superintendent Service Name Role Phone Brigido Lopez MD Primary Care Provider [phone] Source Comments [facility],non-owned Affiliates and Associated Physician Practices is amultiple site organization consisting of ambulatory clinics and hospital sitesin [place], [place], [place] and [place]. This disclosure is being madepursuant to the Care Everywhere program and may not contain all information available regarding this patient. Last updated 18.[facility] Allergies Active Allergy Reactions Criticality Noted Date Comments Codeine Shortness of Breath High 06/26/2021 Medications * Be aware that medications may not be up to date on this document. Alwaysverify current medications with the patient. albuterol HFA (PROAIR HFA) 108 (90 Base) MCG/ACT inhaler Inhale 1-2 puffs by mouth every 4 hours as needed Active cetirizine (ZYRTEC) 10 MG tablet Take 1 tablet by mouth once daily as needed Active citalopram (CELEXA) 20 MG tablet Take 1 tablet by mouth once daily 05/29/20 21 Active risedronate Sodium (ACTONEL) 150 MG tablet Take 1 tablet by mouth every 30 days 05/24/20 21 Active BETIMOL 0.5 % ophthalmic solution Instill 1 drop into both eyes 2 times daily 04/05/20 21 Active levothyroxine (SYNTHROID) 100 MCG tablet Take 100 mcg by mouth daily before breakfast 08/21/19 22 Active diclofenac sodium EC (VOLTAREN) 75 MG tabletIndications:The rapeutic drug monitoring,Long-term use of immunosuppressant medication,Osteoarthr itis of multiple joints, unspecified osteoarthritis type Take 1 (one) tablet by mouth 2 times daily 180 tablet 09/18/19 22 Active cyclobenzaprine (FLEXERIL) 10 MG tabletIndications:The rapeutic drug monitoring,Long-term use of immunosuppressant medication,Osteoarthr itis of multiple joints, unspecified osteoarthritis type Take 1 (one) tablet by mouth 3 times daily as needed for Muscle Spasms 30 tablet 09/18/19 22 Active Family History Medical History Relation Name Comments Arthritis - Rheumatoid Sister Relation Name Status Comments Sister Social History Tobacco Use Types Packs/Day Years Used Date Smoking Tobacco: Never Smokeless Tobacco: Never Alcohol Use Standard Drinks/Week Comments Yes 0 (1 standard drink = 0.6 oz pur e alcohol) social PHQ-2 Answer Date Recorded PHQ2 TOTAL SCORE 0 09/18/2021 Comments Unknown Sex and Gender Information Value Date Recorded Sex Assigned at Not on file Legal Sex Female 10:06 AM CDT Gender Identity Not on file Sexual Orientation Not on file Last Filed Vital Signs Vital Sign Reading Time Taken Comments Blood Pressure 138/76 09/18/2021 11:12 AM COMPUTER SUPPORT SPECIALIST INSTRUCTOR Pulse 72 06/26/2021 9:46 AM COMPUTER SUPPORT SPECIALIST INSTRUCTOR Temperature 36.9 C (98.5 F) 09/18/2021 11:12 AM COMPUTER SUPPORT SPECIALIST INSTRUCTOR Respiratory Rate - - Oxygen Saturation - - Inhaled Oxygen Concentration - - Weight 75.5 kg (166 lb 6.4 oz) 09/18/2021 11:12 AM COMPUTER SUPPORT SPECIALIST INSTRUCTOR Height 167.6 cm (5' 6) 09/18/2021 11:12 AM COMPUTER SUPPORT SPECIALIST INSTRUCTOR Body Mass Index 26.86 09/18/2021 11:12 AM COMPUTER SUPPORT SPECIALIST INSTRUCTOR Plan of Treatment Health Maintenance Due Date Last Done Comments BONE DENSITY TESTING 1955 COLON MONITORING 1955 COLONOSCOPY - COLON CA SCREENING 1955 CT COLONOGRAPHY - COLON CA SCREENING 1955 FIT - COLON CA SCREENING 1955 FLEX SIG - COLON CA SCREENING 1955 LIPID TESTING 1955 MAMMOGRAM 1955 MEDICARE AWV 12 MONTHS 1955 HEPATITIS C SCREENING 08/31/1973 DTAP/TDAP/TD VACCINES (1 - Tdap) 1974 PNEUMOCOCCAL VACCINE 50+ (1 of 1 - PCV) 2005 ZOSTER VACCINE (1 of 2) 2005 SCREENING FOR DIABETES 06/26/2021 COLOGUARD (AGES 45-75) - COL ON CA SCREENING 04/03/2024 04/03/2021 Colorectal Cancer Screening 04/03/2024 COVID-19 VACCINE (1 - 2023-2 5 season) 2024 DEPRESSION SCREENING 08/11/2024 INFLUENZA VACCINE (Season Ended) 2025 Respiratory Syncytial Virus (RSV) Vaccine Pt: or over 60 yrs (1 - 1-dose 75+ series) 2030 HEPATITIS B VACCINE Aged Out No longe r eligible based on patient's age to complete this topic HIB VACCINE Aged Out No longer eligi ble based on patient's age to complete this topic HPV VACCINE Aged Out No longer eligi ble based on patient's age to complete this topic MENINGOCOCCAL (Group B) VACC INE SHARED DECISION-MAKING Aged Out No longer eligibl e based on patient's age to complete this topic MENINGOCOCCAL GROUPS A/C/Y/W VACCINE Aged Out No longer eligible b ased on patient's age to complete this topic Insurance [facility] Address: [facility] [address] [place] [address] MEDICARE [facility] SELF PAY NO INSURANCE Member Subscriber Plan / Payer (Ef fective for All Dates) Name:Flori Bauer Member ID:Not on file Relation to Subscriber:Not on file Name:FLORI BAUER Subscriber ID:Not on file (Home) Address: [address] [place] [address] Payer ID:Not on file Group ID:Not on file Type:Self Pay Address: [place], [place] Care Teams Superintendent Service Relationship Specialty Start Date End Date Brigido Lopez MD [address] [place] [address] PCP - General 04/03/21
--- OUTSIDE RECORDS SUMMARY | 2025-02-08 08:44 | XMS_ITS | Continuity of Care Document ---
Author Organization [facility] Address [address] [place] [address] Dr [address] [place] [id number] Phone Care Team Providers Care Yoghurt Maker Name Role Phone Rodríguez OD, Jose Unavailable [...] Copied on Encounter Office/outpat ient Visit, Est [facility], [address] [place] [address] [address], [place], [place], [id number], [place] tel:[phone] [facility] [place] No Information Oct-2 0-201 0 Rodríguez OD Jose. [address] [place], [place] [address]ate Center , [address], [place], [place], [facility], . tel:[phone] [facility], [address] [place] [address] [address], [place], [place], [id number], [place] tel:[phone] SEC [facility] No Information Ray-2 2-201 0 Rodríguez OD Jose. [address] [place], [place] [address]ate Center , [address], [place], [place], [facility], . tel:[phone] Referring Provider: Jose Rodríguez OD A, [address] [place], [place] [address]ate [address], [place], [place], [facility]. tel:[phone] [facility], [address] [place] [address] [address], [place], [place], [id number], [place] tel:[phone] SEC [facility] No Information Apr-2 3-201 0 Rodríguez OD Jose. [address] [place], [place] [address]ate Center , [address], [place], [place], [facility], [place]. tel:[phone] Referring Provider: Jose Rodríguez OD A, [address] [place], [place] [address], [place], [place], [facility]. tel:[phone] Office/outpat ient Visit, [facility], [address] [place] [address] [address], [place], [place], [id number], [place] tel:[phone] SEC [facility] [place] No Information Feb-1 0-201 0 Rodríguez OD Jose. [address] [place], [place] [address]ate Center , [address], [place], [facility], . tel:[phone] Office/outpat ient Visit, [facility], [address] [place] [address] [address], [place], [place], [id number], [place] tel:[phone] SEC [facility] Corporate Center No Information Oct-0 7-200 9 Rodríguez OD Jose. [facility] [address], [place], [address], [place]. tel:[phone] [facility], [address], [place], [place], [id number], [place] tel:[phone] SEC [facility] No Information Ray-0 9-200 9 Rodríguez OD Jose. [facility] [address], [place], [address], [place]. tel:[phone] Referring Provider: Jose Ma, [facility] [address], [place], [facility]. tel:[phone] [facility], [address] [place] [address] [address], [place], [place], [id number], [place] tel:[phone] SEC [facility] [place] No Information Nov-1 7-200 9 Rodríguez OD Jose. [address] [place] [place] [address], [place], [address], [place]. tel:[phone] Referring Provider: Jose Ma, [address] [place] [address]ate [address], [place], [facility]. tel:[phone] Office/outpat ient Visit, [facility] [address] [place] [address] [address], [place], [place], [id number], [place] tel:[phone] SEC [facility] No Information Sep-2 5-200 9 Rodríguez OD Jose. [address] [place] [place] [address], [place], [address], [place]. tel:[phone] Referring Provider: Jose Ma, [address] [place] [address], [place], [address]. tel:[phone] [facility], [address], [place], [place], [id number], [place] tel:[phone] SEC [facility] [place] No Information Oct-2 9-200 8 Rodríguez OD Jose. [facility] Corporate Center , [address], [place], [facility], [place]. tel:[phone] [facility], [address] [place] [address] [address], [place], [place], [id number], [place] tel:[phone] SEC [facility] [place] No Information Ray-3 0-200 8 Rodríguez OD Jose. [facility] [address] Center , [address], [place], [facility], [place]. tel:[phone] Referring Provider: Jose Rodríguez OD A, [facility] [address], [place], [facility]. tel:[phone] [facility], [address] [place] [address] [address], [place], [place], [id number], [place] tel:[phone] SEC [facility] [place] No Information Apr-0 4-200 8 Rodríguez OD Jose. [facility] [address], [address], [place], [facility], [place]. tel:[phone] Referring Provider: Jose Rodríguez OD A, [facility] [address], [place], [facility]. tel:[phone] [facility], [address] [place] [address] [address], [place], [place], [id number], [place] tel:[phone] SEC [facility] No Information Feb-0 6-200 8 Rodríguez OD Jose. [facility] [address], [address], [place], [address], [place]. tel:[phone] Office/outpat ient Visit, Est [facility], [address] [place] [address] [address], [place], [place], [id number], [place] tel:[phone] SEC [facility] [place] No Information Cal-0 9-200 8 Rodríguez OD Jose. [address] , [address], [place], [facility], . tel:[phone] Office/outpat ient Visit, [facility], [address] [place] [address] [address], [place], [place], [id number], [place] tel:[phone] SEC [facility] No Information Sep-1 9-200 7 Rodríguez OD Jose. [address] , [address], [place], [facility], [place]. tel:[phone] Office/outpat ient Visit, [facility], [address] [place] [address] [address], [place], [place], [id number], [place] tel:[phone] SEC [facility] No Information May-2 4-200 7 Rodríguez OD Jose. [address] , [address], [place], [facility], [place]. tel:[phone] Office/outpat ient Visit, [facility], [address] [place] [address] [address], [place], [place], [id number], [place] tel:[phone] SEC [facility] [place] No Information December-1 1-200 7 Rodríguez OD Jose. [address], [address], [place], [facility], [place]. tel:[phone] Referring Provider: Jose Rodríguez OD A, [facility] [address], [place], [facility]. tel:[phone] [facility], [address] [place] [address] [address], [place], [place], [id number], [place] tel:[phone] SEC [facility] [place] No Information Apr-2 0-200 7 Rodríguez OD Jose. [address] , [address], [place], [facility], [place]. tel:[phone] Referring Provider: Jose Rodríguez OD A, [address], [place], [facility]. tel:[phone] [facility], [address] [place] [address] [address], [place], [place], [id number], tel:[phone] SEC [facility] No Information -200 7 Rodríguez OD Jose. [address] [place] [address] , [address], [place], [facility], [place]. tel:[phone] Referring Provider: Jose Rodríguez OD Francesca, [address] [place] [address] [address], [place], [facility]. tel:[phone] [facility], [address] [facility] [address], [place], [place], [id number], tel:[phone] SEC [facility] No Information 1-200 7 Rodríguez OD Jose. [address] [place] [address] , [address], [place], [address], . tel:[phone] Family History Family Member Type Diagnosis Age At Onset No Information Payers Payer name Insurance type Covered green party ID Authoriza tion(s) No Information Social History [...]
--- OUTSIDE RECORDS SUMMARY | 2025-02-08 08:44 | XMS_ITS | Data Portability ---
Author Organization [facility] [employer], Main Office Address [address] [place] [address] Assessment No assessment recorded. Plan of Treatment Reminders Order Date Submit Date Provider Last Modified By Organization Details Last Modified Time Details Appointments None recorded. Lab CBC w/ auto diff [address] Out[facility], [address] [place], [address], 3 18:30:57 urinalysis, complete [address] Out[facility], [address] [place], [address], 3 18:31:05 culture, urine [address] Lab, [address] [place], [address], 3 18:31:13 BMP, serum or plasma 2022 023 [facility] Outpatient Lab, [address] [place], [address], 3 18:05:02 hepatic function panel, serum [address] Out[facility], [address] [place], [address], 3 18:31:21 Referral None recorded. Procedures None recorded. Surgeries None recorded. Imaging XR, sacrum + coccyx, 2 or more view 2022 023 [facility] (Imaging), [address] [facility], [place], [address], 3 18:06:42 CT, abdomen + pelvis, w/ contrast 2022 023 [facility] (Imaging), [address] [facility], [place], [address], 3 09:03:43 Medication Orders triamcinolo ne acetonide 0.1 % topical cream 2022 023 [facility] #[id number], [address], [place], [place], [id number], 3 10:05:08 nystatin 100,000 unit/gram topical powder 2022 023 [facility] #89834, [address], [place], [place], [id number], 3 10:05:07 amlodipine 2.5 mg tablet 2022 023 [facility] #05893, [address], [place], [place], [id number], 3 10:06:07 Patient TargetsNo targets recorded. Patient InstructionsNo instructions recorded. Reason for Referral None Reported. Results Created Date Observation Date Name Description Value Unit Range Abnormal Flag Note LastModifiedBy Organization Detail LastModifiedTime 05/08/20 22 05/08/2022 upper endos copy proce dure (EGD) (PROC ) No observ ation record ed. [id number] Not Available 10/09/2022 13:36:27 05/08/20 22 05/08/2022 colon oscop y proce dure (PROC ) No observ ation record ed. [id number] Chance Anand MD [address], [place], [address], 10/09/2022 13:36:27 08/19/19 23 08/19/2022 XR, chest , 2 view No observ ation record ed. [id number] [facility] (Imaging) [address] [place] [address], [address], 10/09/2022 13:36:27 08/22/19 23 08/20/2022 CT, angio gram, chest , w/wo contr ast No observ ation record ed. [id number] [facility] Add On Lab Orders [address] [place], [address], 10/09/2022 13:36:27 02/14/20 23 02/13/2023 XR, sacru m + coccy x, 2 or more view No observ ation record ed. [email or web address] [facility] (Imaging) [address] [place], [address], 04/17/2023 09:52:06 02/15/20 23 02/13/2023 CT, abdom en + pelvi s, w/ contr ast No observ ation record ed. BARCODE [facility] (Imaging) [address] [place], [address], 02/14/2023 09:03:43 02/25/20 23 11/23/2022 MAMMO , scree porsha, digit al, bilat eral No observ ation record ed. [address], [address], 02/24/2023 17:45:11 02/25/20 23 11/23/2022 MAMMO , scree porsha, digit al, bilat eral No observ ation record ed. [address], [address], 02/24/2023 17:45:01 06/05/20 23 03/09/2023 XR, knee No observ ation record ed. [address], [address], 06/05/2023 15:56:57 10/02/19 24 10/01/2023 CT, abdom en + pelvi s, w/ contr ast No observ ation record ed. [email or web address] [facility] [address], [place], [address], 12/24/2023 09:45:55 Result Notes None recorded. Problems Name Problem SNOMED Code Status Onset Date Resolution Date Notes Provider Name and Address Organization Details Recorded Time Diverticuliti s of colon 700399750 Active 2021 Not Available [facility] 3 13:31:25 Disorder of shoulder 442676387 Active Not Available [facility] 3 13:31:25 Localized, primary osteoarthriti s 305200880 Active Not Available [facility] 3 13:31:25 Partial thickness rotator cuff tear 095921872 Active Not Available [facility] 3 13:31:25 Generalized anxiety disorder 52225609 Active 2018 Not Available [facility] 3 13:31:26 Gastroesophag eal reflux disease 562948912 Active 2022 Not Available [facility] 3 13:31:26 Shoulder joint pain 150984265 Active Not Available [facility] 3 13:31:26 Chest pain 88855475 Active 2022 Not Available [facility] 3 13:31:26 Pain of multiple joints 24002220 Active 2021 Not Available [facility] 3 13:31:26 Diverticular disease of colon 281756864 Active 2021 Not Available [facility] 3 13:31:26 Hypothyroidis m 07334987 Active 2018 Not Available [facility] 3 13:31:26 D-dimer above reference range 083628259 Active 2022 Not Available [facility] 3 13:31:26 Gastritis 9650088 Active 2021 Not Available [facility] 3 13:31:27 Cough 44529125 Active 2021 Not Available [facility] 3 13:31:27 Dyspnea on exertion 50766790 Active 2022 Not Available [facility] 3 13:31:27 COVID-19 093848958 Active 2021 Not Available [facility] 3 13:31:27 Upper respiratory infection 73837262 Active 2022 LEONIDES Martin [address], [address], [place], [address] , [employer] 3 17:09:01 Persistent cough 239754872 Active 2022 LEONIDES Martin [address], [address], [place], [address] , [employer] 3 12:10:29 Diverticuliti s 827464991 Active 2022 LEONIDES Martin [address], [address], [place], [address] , [employer] 3 12:32:37 Left lower quadrant pain 674368905 Active 2022 LEONIDES Martin [address], [address], [place], [address] , [facility] [employer] 3 15:44:11 Right lower quadrant pain 316828139 Active 2022 LEONIDES Martin [address], [address], [place], [address] , [facility] [employer] 3 15:45:01 Pain in coccyx 91034181 Active 2022 LEONIDES Martin [address], [address], [place], [address] , [employer] 3 15:45:18 Candidiasis of skin 47206439 Active 2022 LEONIDES Martin [address], [address], [place], [address] , [facility] 3 10:04:14 Benign essential hypertension 7187318 Active 2022 LEONIDES Martin [address] [facility], [facility] [address], [place], [address] , [facility] 3 10:05:27 Acute sinusitis 34808549 Active [address] [facility], [facility] [address], [place], [address] , [facility] 3 13:48:58 Problem Notes None recorded. Procedures Surgical History Date Name Laterality Status Provider Name and Address Organization Details Recorded Time 02/26/20 19 Unlisted px femur/knee completed Not Available [facility] 10/09/2022 13:30:02 08/11/19 11 Date of Last Colonoscopy completed Not Available [facility] 10/09/2022 13:30:00 lumpectomy of breast completed Not Available [facility] 10/09/2022 13:30:02 cholecystectomy completed Not Available [facility] 10/09/2022 13:30:02 Imaging Results None recorded. Procedure Notes None recorded. Medical Equipment None Reported. Allergies Allergen ID Allergen Name Allergen Category Reaction Reaction Severity Criticality Documentation Date Start Date Code Code System Note Provider Name and Address Organization Details Recorded Time 11500 morphine medicatio n Not available Not available Not available 10/09/2022 7052 RxNorm Not Available [facility] 3 13:36:17 12908 codeine medicatio n Not available Not available Not available 10/09/2022 2670 RxNorm Not Available [facility] 3 13:36:17 Medications Name Sig Start Date Stop Date Status Note LastModified by Organization Details LastModified Time cyclobenzap rine 10 mg tablet TAKE 1 TABLET EVERY 8 HOURS NEEDED FOR MUSCLE SPASM 04/22 completed Not Available Not Available Not Available latanoprost 0.005 % eye drops INSTILL 1 DROP INTO BOTH EYES AT BEDTIME active Not Available Not Available No t Available cetirizine 10 mg tablet TAKE ONE TABLET DAILY 01/19 completed Not Available Not Available Not Available azithromyci n 250 mg tablet TAKE 2 TABLETS (500 MG) BY ORAL ROUTE ONCE DAILY FOR 1 DAY THEN 1 TABLET (250 MG) BY ORAL ROUTE ONCE DAILY FOR 4 DAYS active Not Available Not Available No t Available ibuprofen 800 mg tablet 01/19 completed Not Available Not Available Not Available tizanidine 4 mg tablet TAKE ONE TABLET 3 TIMES DAILY NEEDED active Not Available Not Available No t Available benzonatate 200 mg capsule TAKE 1 CAPSULE BY MOUTH THREE TIMES DAILY NEEDED 02/12 completed Not Available Not Available Not Available hydrocodone 5 mg-acetamin ophen 325 mg tablet TAKE 1 TABLET BY MOUTH EVERY 6 HOURS NEEDED FOR PAIN 02/13 completed Not Available Not Available Not Available meloxicam 15 mg tablet 04/16 completed Not Available Not Available Not Available famotidine 40 mg tablet 01/27 completed Not Available Not Available Not Available prednisone 20 mg tablet 04/16 completed Not Available Not Available Not Available amlodipine 2.5 mg tablet TAKE 1 TABLET BY MOUTH EVERY DAY active Not Available Not Available No t Available metronidazo le 500 mg tablet Take 1 tablet every 8 hours by oral route. 04/16 completed Not Available Not Available Not Available ciprofloxac in 500 mg tablet Take 1 tablet every 12 hours by oral route. 04/16 completed Not Available Not Available Not Available sulfamethox azole 800 mg-trimetho prim 160 mg tablet TAKE 1 TABLET EVERY 12 HOURS UNTIL ALL TAKEN 01/19 completed Not Available Not Available Not Available omeprazole 40 mg capsule,del ayed release Take 1 capsule every day by oral route. active Not Available Not Available No t Available triamcinolo ne acetonide 0.1 % topical cream APPLY TOPICALLY A THIN LAYER BETWEEN BREASTS ON RASH TWICE DAILY active Not Available Not Available No t Available ketorolac 10 mg tablet 01/19 completed Not Available Not Available Not Available Aleve 220 mg tablet Take 1 tablet every 12 hours by oral route. 01/23 completed Not Available Not Available Not Available levothyroxi ne 100 mcg tablet TAKE 1 TABLET BY MOUTH EVERY DAY ON AN EMPTY STOMACH FOR THYROID active Not Available Not Available No t Available oxycodone-a cetaminophe n 5 mg-325 mg tablet TAKE ONE TABLET EVERY 4 TO 6 HOURS NEEDED FOR PAIN 01/19 completed Not Available Not Available Not Available terbinafine HCl 250 mg tablet one daily 01/23 completed Not Available Not Available Not Available ceftriaxone 1 gram solution for injection Take 1 g every day by injection route as directed. 12/29 [place] [id number] Not Available Not Available Not Available amoxicillin 875 mg tablet active Not Available Not Available Not Available citalopram 20 mg tablet TAKE 1 TABLET BY MOUTH DAILY active Not Available Not Available No t Available Betimol 0.5 % eye drops 02/13 completed Not Available Not Available Not Available benzonatate 100 mg capsule 01/23 completed Not Available Not Available Not Available dexamethaso ne 2 mg tablet one tab po tid for 3 days, thenone tab po bid for 3 days, thenone tab po daily for 3 days active Not Available Not Available No t Available hydrocodone 7.5 mg-acetamin ophen 325 mg tablet active Not Available Not Available No t Available levothyroxi ne 125 mcg tablet 01/19 completed Not Available Not Available Not Available Promethazin e VC 6.25 mg-5 mg/5 mL oral syrup 01/19 completed Not Available Not Available Not Available prednisone 50 mg tablet TAKE 1 TABLET BY MOUTH EVERY DAY FOR 5 DAYS 02/12 completed Not Available Not Available Not Available docusate sodium 100 mg capsule 02/13 completed Not Available Not Available Not Available gabapentin 300 mg capsule 01/19 completed Not Available Not Available Not Available diclofenac sodium 75 mg tablet,dayton yed release Take 1 tablet twice a day by oral route as needed. 02/13 completed Not Available Not Available Not Available nystatin 100,000 unit/gram topical powder APPLY EXTERNALL Y TO THE AFFECTED AREA BETWEEN BREASTS TWICE DAILY active Not Available Not Available No t Available cefuroxime axetil 500 mg tablet Take 1 tablet every 12 hours by oral route. active Not Available Not Available No t Available albuterol sulfate HFA 90 mcg/actuati on aerosol inhaler INHALE 1 TO 2 PUFFS BY MOUTH EVERY 4 HOURS NEEDED FOR SHORTNESS OF BREATH active Not Available Not Available No t Available timolol maleate 0.5 % eye drops active Not Available Not Available Not Available ondansetron 4 mg disintegrat ing tablet DISSOLVE 1 TABLET ON THE TONGUE EVERY 8 HOURS NEEDED FOR NAUSEA OR VOMITING 07/06 /2023 completed Not Available Not Available Not Available amoxicillin 875 mg-ganeshiu m clavulanate 125 mg tablet TAKE 1 TABLET BY MOUTH EVERY 12 HOURS 02/12 completed Not Available Not Available Not Available clindamycin phosphate 1 % topical solution 01/19 completed Not Available Not Available Not Available risedronate 150 mg tablet once a month 02/13 completed Not Available Not Available Not Available Lotemax SM 0.38 % eye gel drops 04/22 completed Not Available Not Available Not Available Vitals Date Recorded Body mass index (BMI) Body height Oxygen saturation Oxygen saturation in Arterial blood by Pulse oximetry Heart rate Body temperature Body weight Systolic blood pressure Diastolic blood pressure Provider Name and Address Organization Details Last Updated DateTime 3 27.4 kg/m2 167.64 cm 99 % 99 % 76 /min 97.1 [degF] 53390.7 g 112 mm[Hg] 70 mm[Hg] Not Available [facility] 3 13:30:09 Date Recorded Body height Body temperature Body mass index (BMI) Body weight Respiratory rate Oxygen saturation Oxygen saturation in Arterial blood by Pulse oximetry Heart rate Systolic blood pressure Diastolic blood pressure Provider Name and Address Organization Details Last Updated DateTime 3 167.64 cm 98.2 [degF] 27 kg/m2 21924.9 3 g 16 /min 98 % 98 % 72 /min 138 mm[Hg] 82 mm[Hg] ISABEL Joshi [place] [employer] [facility] [employer] 3 15:30:50 Date Recorded Systolic blood pressure Diastolic blood pressure Systolic blood pressure Diastolic blood pressure Provider Name and Address Organization Details Last Updated DateTime 04/17/2023 150 mm[Hg] 80 mm[Hg] 150 mm[Hg] 80 mm[Hg] LEONIDES Martin [address] [facility], [facility] [address], [place], [address] , [place] [employer] [facility] [employer] 3 10:05:19 Date Recorded Body height Body temperature Body mass index (BMI) Body weight Respiratory rate Oxygen saturation Oxygen saturation in Arterial blood by Pulse oximetry Heart rate Provider Name and Address Organization Details Last Updated DateTime 3 167.64 cm 97.8 [degF] 27.5 kg/m2 44270.5 g 16 /min 98 % 98 % 80 /min ISABEL Joshi [place] [facility] [employer] [facility] [employer] 3 09:49:40 Date Recorded Body mass index (BMI) Body height Oxygen saturation Oxygen saturation in Arterial blood by Pulse oximetry Heart rate Respiratory rate Body temperature Body weight Systolic blood pressure Diastolic blood pressure Provider Name and Address Organization Details Last Updated DateTime 2 27 kg/m2 167.64 cm 98 % 98 % 72 /min 16 /min 96.8 [degF] 96182.3 6 g 120 mm[Hg] 80 mm[Hg] Not Available [facility] 3 13:30:09 Social History Question Answer Notes LastModified by Organizat ion Details LastModified Time Tobacco Smoking Status Never Smoker Not Available [facility] 10/09/2022 13:29:44 What Is Your Level Of Caffeine Consumption? Occasional [id number] Information not available 10/09/2022 How Much Tobacco Do You Chew? None [id number] Information not available 10/09/2022 In The 14 Days Before Symptom Onset, Have You Had Close Contact With A Laboratory-confirm ed COVID-19 While That Case Was Ill? No [id number] Information not available 10/09/2022 In The 14 Days Before Symptom Onset, Have You Had Close Contact With A Person Who Is Under Investigation For COVID-19 While That Person Was Ill? No [id number] Information not available 10/09/2022 What Type Of Diet Are You Following? REGULAR [id number] 3042 Information not available 10/09/2022 Which Illicit Or Recreational Drugs Have You Used? None MIGRATION.[id number] 3086 Information not available 10/09/2022 Have There Been Any Changes To Your Family Or Social Situation? No [id number].937482 9611 Information not available 10/09/2022 Do You Use Insect Repellent Routinely? No MIGRATION.[id number] 3900 Information not available 10/09/2022 What Is Your Relationship Status? MIGRATION.[id number] 7360 Information not available 10/09/2022 Do You Use Your Seat Belt Or Car Seat Routinely? Yes [id number].[id number] 1413 Information not available 10/09/2022 Do You Have Smoke And Carbon Monoxide Detectors In Your Home? Yes MIGRATION.[id number] 2830 Information not available 10/09/2022 Are You Passively Exposed To Smoke? No MIGRATION.784607 5661 Information not available 10/09/2022 Are There Any Smokers In Your House? No MIGRATION.922015 7647 Information not available 10/09/2022 How Much Tobacco Do You Smoke? No [id number].[id number] 6410 Information not available 10/09/2022 Do You Use Sunscreen Routinely? Yes MIGRATION.074603 5201 Information not available 10/09/2022 Have You Recently Traveled Abroad? No MIGRATION.[id number] 3606 Information not available 10/09/2022 Do You Have Any Dietary Restrictions? No MIGRATION.473972 8624 Information not available 10/09/2022 Sex: Unknown Functional Status Question Answer Note LastModified by Organizat ion Details LastModified Time Do you use any illicit or recreational drugs? No MIGRATION.746677 2674 Information not available 10/09/2022 Do you or have you ever used any other forms of tobacco or nicotine? No MIGRATION.[id number] 2655 Information not available 10/09/2022 What is your level of alcohol consumption? Occasional MIGRATION.[id number] 5382 Information not available 10/09/2022 Do you or have you ever used smokeless tobacco? Never used smokeless tobacco MIGRATION.974779 2642 Information not available 10/09/2022 Are you currently employed? Yes [email or web address] Information not available 02/12/2023 Do you have transportation difficulties? No MIGRATION.918786 0313 Information not available 10/09/2022 Do you have difficulty doing errands alone? No MIGRATION.472267 5894 Information not available 10/09/2022 Are you able to care for yourself? 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 No MIGRATION.723473 1931 Information not available 10/09/2022 Do you or have you ever used e-cigarettes or vape? Never used electronic cigarettes MIGRATION.[id number] 8944 Information not available 10/09/2022 What is your exercise level? Moderate MIGRATION.[id number] 9353 Information not available 10/09/2022 Mental Status None recorded. Family History Relationship Description Onset Age of this Age Resolved Age Notes LastModified by Organization Details LastModified Time Father Heart disease [id number] Not available 10/09/2022 13:30:02 Maternal Grandmother Heart disease MIGRATION.649 [id number] Not available 10/09/2022 13:30:03 Maternal Grandfather Heart disease MIGRATION.821 [id number] Not available 10/09/2022 13:30:03 Paternal Grandfather Heart disease MIGRATION.179 [id number] Not available 10/09/2022 13:30:03 Paternal Grandmother Heart disease MIGRATION.269 [id number] Not available 10/09/2022 13:30:03 Mother Arthritis MIGRATION.710 [id number] Not available 10/09/2022 13:30:03 Mother Diabetes mellitus MIGRATION.053 [id number] Not available 10/09/2022 13:30:03 Mother Chronic back pain MIGRATION.206 [id number] Not available 10/09/2022 13:30:03 Sister Arthritis MIGRATION.286 [id number] Not available 10/09/2022 13:30:03 Medical History Condition Response NERVE DISEASE N BLINDNESS N RHEUMATIC FEVER N KIDNEY STONES N BLADDER PROBLEMS N MRSA N OTHER # 1 N POLIO N LUNG DISEASE/DISORDER N COPD N RADIATION / CHEMOTHERAPY N Other # 2 N BLOOD DISEASES N EAR OR HEARING PROBLEMS N MUMPS N DEPRESSION (INCLUDING POST ) N BOWEL PROBLEMS N STROKE/TIA N ULCERS N BENIGN PROSTATIC HYPERPLASIA N MEASLES N MYOCARDIAL INFARCTION N OBESITY N GERD/NAUSEA N ANEURYSM N URINARY/BLADDER/KIDNEY PROBLEMS N CORONARY ARTERY DISEASE (CAD) N ADDICTION CONCERNS N Impotence N ENDOMETRIOSIS N USE OF BLOOD THINNERS N SKIN PROBLEMS N GASTROINTESTINAL DISORDER N PERIPHERAL VASCULAR DISEASE N MUSCLE,JOINT OR BONE PROBLEMS N GASTROINTESTINAL BLEEDING N BLOOD CLOTS N ASTHMA N CATARACTS N ERECTILE DYSFUNCTION N VARICOSITIES N GI PROBLEMS N Low Testosterone N INFERTILITY N AIDS/HIV N CHEMOTHERAPY / RADIATION N LIVER DISEASE N MALE HYPOGONADISM N HYPERTENSION N Deficiency N TOURETTE'S N ANXIETY DISORDER Y BLOOD TRANSFUSION N ANEMIA/BLOOD DISORDER N CHRONIC EAR INFECTIONS N BRONCHITIS N TUBERCULOSIS N GLAUCOMA N FOOT PROBLEM N DIVERTICULITIS N SLEEP APNEA N CHICKENPOX N INFECTIOUS DISEASE N PROSTATE N HEART ARRHYTHMIA N INSOMNIA N HIGH CHOLESTEROL / HYPERLIPIDEMIA N EYE PROBLEMS N HYPERTHYROIDISM N EDEMA N CHRONIC PAIN SYNDROME N HYPOTHYROIDISM Y CAROTID BLOCKAGE N CONSTIPATION N BACK / NECK PROBLEMS N HAVE YOU BEEN HOSPITALIZED OR SEEN IN [facility] IN THE PAST YEAR ? N ATHEROSCLEROSIS N BREAST PROBLEMS N DIALYSIS N ECZEMA N OSTEOPOROSIS Y ARTHRITIS N NO SIGNIFICANT PAST MEDICAL HISTORY N APPENDICITIS N DIABETES, TYPE N BAD TEETH N ENT N HEARTBURN / REFLUX Y AUTISM SPECTRUM DISORDER (ASD) N HEPATITIS / LIVER DISEASE N GOUT N SLEEP DISORDER N ALZHEIMER'S DISEASE N Brain Problems N DEMENTIA N HERPES N SEIZURES/EPILEPSY N HEADACHES/MIGRAINES N VASCULAR DISEASE N PACEMAKER N Blood Disorder N DIZZINESS N HEART DISEASE/HEART PROBLEMS N KIDNEY DISEASE N MULTIPLE SCLEROSIS N CANCER: SPECIFY N CARDIAC ARRHYTHMIA N ATRIAL FIBRILLATION N Gall Stones N PULMONARY EMBOLISM N AUTOIMMUNE DISEASE N Gynecological History Statement/Question Response Abnormal Pap N Date of Last Mammogram 08/11/2017 Date of Last Colonoscopy 08/11/2010 Date of LMP 08/11/1996 Sexually Active? Y Menses Monthly N Date of Last Pap 11/09/2018 Current Control Method Menopause Obstetrics History GPAL:G 2 P 0 0 0 2 Type Value Living 2 Total 2 Immunizations Vaccine Type Date Status Note Provider Nam e and Address Organization Details Recorded Time Influenza, split virus, quadrivalent, preservative 0 completed Not Available [facility] 10/09/2022 13:36:10 Influenza, high-dose, quadrivalent, PF 2 completed Not Available [facility] 10/09/2022 13:36:11 Past Encounters Encounter ID Performer Location Encounter Start Date Encounter Closed Date Diagnosis/Indication Diagnosis SNOMED-CT Code Diagnosis ICD10 Code Diagnosis Note [id number] LEONIDES Martin [facility] [place] [address] [facility], [address] [place] [address] 01/23/2021 00:00:00 01/26/2021 11:51:56 [id number] LEONIDES Martin [facility] [place] [address] [place] [address], [address] [place] [address] 04/22/2022 00:00:00 05/09/2022 21:40:39 [id number] LEONIDES Martin [facility] [place] [address], [address] [place] [address] 06/26/2022 00:00:00 06/26/2022 17:29:04 [id number] LEONIDES Martin [facility] [place] [address], [address] [place] [address] 08/20/2022 00:00:00 09/09/2022 19:50:09 [id number] LEONIDES Martin [facility] [place] [address] [place] [address] 02/13/2023 15:21:04 02/13/2023 15:49:42 Left lower quadrant pain 081922508 R10.[address] scan a/p w/c. concerns for diverticul itis severity, and also RLQ pain with appendix present Diverticulitis 257973837 K57.92 hx of multiple episodes of diverticul itis. Right lowe r quadrant pain 055985676 R10.31 check STAT labs. pt as appendix also and RLQ TTP w/rebound Pain in coccyx 83475368 M53.3 check xray sacram /coccyx [id number] LEONIDES Martin [facility] [place] [address] [place] [address] 04/17/2023 09:41:16 04/17/2023 10:04:24 Candidiasis of skin 56367410 B37.2 Start triamcinol one cream 0.1% bid to area and top with Nystatin powder bid. Benign ess ential hypertension 0565546 I10 Start rx for amlodipine 2.5mg daily Health Concerns Section Related Observation LastModified by Organization Detai ls LastModified Time None Recorded Concern Status LastModified by Organization Details LastModified Time None Recorded Advance Directives Directive None Recorded Payers Insurance Date Sequence Insurance Name Policy Number Policy Pickett Covered Member ID Pickett Member ID Guarantor Name 04/16/2023 1 [place] Flori Bauer [id number] Flori Bauer 05/08/2023 2 AARP (MEDICARE SUPPLEMENT) PLAN N Flori Bauer [id number] Flori Bauer Notes Date Note Type Note Provider Name and Address Organization Details Recorded Time 04/22/2022 text/html Generic HPI TemplateReported bypatient.Notes:Pt is here for an e/r f/u from 04/14/22 for abd pain. They dx her w/diverticulitis and put her on abx. Hospital record is in the room w/her. Today she is better and not having as much abd pain. Not Available [employer] 05/09/2022 21:40:39 08/20/2022 text/html Generic HPI TemplateReported bypatient.Notes:pt tested positive for covid via otc test on new josé antonio. She continues to have sob upon exertion, along w/ chest pain radiating to the mid back. Left Lower lung area is experiencing a constant pain.CXR completed Not Available [employer] 09/09/2022 19:50:09 02/13/2023 text/html Abdominal PainReported bypatient.Location:LL Q Quality:pain;aching;s harp Severity:pain level 02/17 Duration:started: (Friday) Onset/Timing:better Context:diverticuliti s Modifying Factors:on abx Associated Symptoms:no fever; no chills; no blood in the urine; no heartburn; no shortness of breath;nausea;vomitin g Other:denies possible LEONIDES Martin [address] [facility], [facility] [address], [place], [address], [employer] 03/10/2023 22:00:39 04/17/2023 text/html Rash/Skin LesionReported bypatient.Location:[place] breasts Quality:not itchy; not painful;dry;red Severity:improving Duration:has noted for <1 week Context:no new detergents or skin products; no one else with similar rash;scratching Alleviating Factors:nothing gives relief Aggravating Factors:nothing makes it worse; sweat Associated Symptoms:no fever; no cold symptoms; no nausea; no vomiting; no diarrhea; no urinary symptoms; scratchy throat and head pressure. LEONIDES Martin [address] [facility], [address], [place], [address], [employer] 05/08/2023 10:29:59 OBGyn Episode No OBEpisode recorded.
== END 2025-02-08 08:38 | disposition home or self-care (01) ==
PROVIDERS: PCP Physician Assistant; Visit Provider Obstetrics & Gynecology
DX: Z12.31 Encounter for screening mammogram for malignant neoplasm of breast (principal)
CPT/HCPCS: 77063; 77067

== ENCOUNTER 2025-02-10 10:34 | Outpatient (CLI) | payer MEDICARE, SELFPAY ==
--- OUTSIDE RECORDS SUMMARY | 2025-02-10 10:40 | XMS_ITS | Data Portability ---
Author Organization [facility] Address [address] [place] [address] Assessment No assessment recorded. Plan of Treatment Reminders Order Date Submit Date Provider Last Modified By Organization Details Last Modified Time Details Appointments ANY 15 2025 10:00A M LEONIDES Martin Not available Not available Not available Lab hepatic function panel, serum [address] [facility], [address] [place] [address], [id number], 02/01/2025 12:11:33 BMP, serum or plasma [address] [facility], [address] [place] [address], [id number], 02/01/2025 12:11:33 CBC w/ auto diff [address] [facility], [address] [place] [address], [id number], 02/01/2025 12:11:33 vitamin B12 + folate, serum or blood [address] [facility], [address] [place] [address], [address], 02/01/2025 12:11:33 lipid panel, serum [address] [facility], [address] [place] [address], [address], 02/01/2025 12:11:33 hemoglobi n A1c, QN, blood [address] [facility], [address], [place], [address], 02/01/2025 12:11:33 TSH + free T4, serum [address] [facility], [address], [place], [address], 02/01/2025 12:11:33 Referral general surgeon referral 2023 024 [email or web address] Eric Eason DO, [address], [address], [place], [address], 06/07/2024 14:25:25 Procedures None recorded. Surgeries None recorded. Imaging CT, abdomen + pelvis, w/ contrast 2023 024 [facility] (Imaging), [address], [place], [address], 03/23/2024 10:52:57 CT, abdomen + pelvis, w/ contrast - f/u on left sided diverticu lits. pt still having notable pain 2023 024 [facility] (Imaging), [address], [place], [address], 10/17/2023 13:43:06 Medication Orders amlodipin e 5 mg tablet 2024 025 [facility][id number], [address], [place], [place], [id number], 02/01/2025 12:11:08 amoxicill in 875 mg-potass ium clavulana te 125 mg tablet 2023 024 [facility] #[id number], [address], [place], [place], [id number], 06/01/2024 13:49:15 famotidin e 20 mg tablet 2023 024 [id number], [address], [place], [place], [phone], 10/20/2023 16:49:14 Patient TargetsNo targets recorded. Patient Instructions Encounter Date Encounter Id Patient Instructions Last Modified By Organization Details Last Modified Time 02/01/2025 [id number] A healthy lifestyle: care instructions [place] [id number] Not available 02/01/2025 12:10:59 Reason for Referral [...] contr ast No observ ation record ed. [address] [facility] [address], [place], [address], 10/19/2023 13:45:53 02/11/2002/11/2024 CT, abdom en + pelvi s, w/ contr ast No observ ation record ed. [address], [address], 02/12/2024 09:28:48 03/23/2003/23/2024 CT, abdom en + pelvi s, w/ contr ast No observ ation record ed. [facility] (Imaging) [address] [place] [address], [address], 03/23/2024 11:34:59 05/09/20 24 05/08/2024 CT, abdom en + pelvi s, w/ contr ast No observ ation record ed. [address], [address], 05/09/2024 08:49:33 12/25/19 25 12/24/2024 CT, abdom en + pelvi s, w/ contr ast No observ ation record ed. [facility] [address], [place], [address], 12/29/2024 10:59:26 02/09/20 25 02/08/2025 MAMMO , scree porsha, digit al, bilat eral No observ ation record ed. [email or web address] [facility] [address], [place], [address], 02/08/2025 17:48:57 Result Notes None recorded. Problems Name Problem SNOMED Code Status Onset Date Resolution Date Notes Provider Name and Address Organization Details Recorded Time Diverticulitis 556488738 Active 2023 Tierra Stevens null, [place] - [facility] 4 10:24:26 Benign essential hypertension 5455173 Active 2023 Tierra [place] [facility] 4 10:24:33 Generalized anxiety disorder 84672436 Active 2023 Tierra [place], [place] [facility] 4 10:24:44 Hypothyroidism 99879296 Active 2023 Tierra Stevens [place], [place] [facility] 4 10:24:54 Diverticular disease of colon 921572381 Active 2023 LEONIDES Martin Attn: Stanislaw wren,[address] [place], [address], [place] [facility] 4 18:18:42 Long-term current use of drug therapy 193376626 Active 2024 LEONIDES Martin Attn: Stanislaw wren,[address] [place], [address], [place] [facility] 5 11:58:38 Overweight in adulthood with body mass index of 25 or more but less than 30 961124492 Active 2024 LEONIDES Martin Attn: Stanislaw wren,[address] [facility], [place], [address], [place] - [facility] 5 11:58:46 Gastroesophage al reflux disease 751574312 Active 2024 LEONIDES Martin Attn: Stanislaw wren,[address] [facility], [place], [address], [place] [facility] 5 00:12:45 Blood glucose outside reference range 653979975 Active 2024 LEONIDES Martin Attn: Stanislaw wren,[address] [facility], [place], [address], [place] - [facility] 5 00:12:55 Problem Notes None recorded. Procedures Surgical History Date Name Laterality Status Provider Name and Address Organization Details Recorded Time Breast Surgery completed ALIA Monzon - [facility] 10/17/2023 10:33:29 Imaging Results None recorded. Procedure Notes None recorded. Medical Equipment None Reported. Allergies Allergen ID Allergen Name Allergen Category Reaction Reaction Severity Criticality Documentation Date Start Date Code Code System Note Provider Name and Address Organization Details Recorded Time 398151 codeine medicatio n Not available Not available Not available 10/17/2023 2670 RxNorm ALIA [place], [place] - [facility] 4 09:51:02 984145 tramadol medicatio n Not available Not available Not available 10/17/2023 85067 RxNorm ALIA [place]zon [place] [facility] 4 09:51:12 116884 levofloxa alice medicatio n vomiting Not available Not available 10/17/2023 60883 RxNorm sweat ing ALIA [place], [place] - [place] 4 09:51:59 Medications Name Sig Start [...] Not Available No t Available amoxicillin 875 mg-potassignaciou m clavulanate 125 mg tablet TAKE 1 TABLET BY MOUTH EVERY 12 HOURS 06/01 completed Not Available Not Available Not Available Premarin 0.625 mg/gram vaginal cream APPLY VAGINALLY TWICE WEEKLY. active Not Available Not Available No t Available Vitals Date Recorded Systolic And Diastolic Systolic And Diastolic Provider Name and Address Organization Details Last Updated DateTime 10/17/2023 134/80 mm[Hg] 140/80 mm[Hg] LEONIDES Martin Attn: Accounting[address] [place], [address], [facility] 10/17/2023 10:19:31 Date Recorded Body height Body mass index (BMI) Body weight Heart rate Respiratory rate Oxygen saturation Oxygen saturation in Arterial blood by Pulse oximetry Systolic And Diastolic Provider Name and Address Organization Details Last Updated DateTime 4 165.74 cm 27.6 kg/m2 32528.9 3 g 78 /min 20 /min 100 % 100 % 145/85 mm[Hg] Jack Beltran MA [facility] 4 09:54:45 Date Recorded Systolic And Diastolic Provider Name and Address Organization Details Last Updated DateTime 02/01/2025 140/80 mm[Hg] LEONIDES Martin Attn: Accounting,[address] [place], [address], [facility] 02/01/2025 12:10:22 Date Recorded Body height Body mass index (BMI) Body weight Respiratory rate Heart rate Oxygen saturation Oxygen saturation in Arterial blood by Pulse oximetry Systolic And Diastolic Provider Name and Address Organization Details Last Updated DateTime 5 165.74 cm 27.4 kg/m2 59972.3 3 g 16 /min 86 /min 98 % 98 % 138/82 mm[Hg] Tierra Stevens [facility] 5 11:45:59 Date Recorded Systolic And Diastolic Provider Name and Address Organization Details Last Updated DateTime 03/23/2024 130/80 mm[Hg] LEONIDES Martin Attn: Accounting [facility], [place], [address], [facility] 03/23/2024 09:20:36 Date Recorded Body height Body mass index (BMI) Body weight Respiratory rate Oxygen saturation Oxygen saturation in Arterial blood by Pulse oximetry Heart rate Systolic And Diastolic Provider Name and Address Organization Details Last Updated DateTime 165.74 cm 27.4 kg/m2 60162.4 8 g 20 /min 99 % 99 % 77 /min 138/88 mm[Hg] Jack Beltran MA [facility] 09:05:10 Date Recorded Body height Provider Name an d Address Organization Details Last Updated DateTime 07/01/2024 165.74 cm Chela Field LPN [facility] 07/01/20 14:02:39 Social History Question Answer Notes LastModified by Organizat ion Details LastModified Time Tobacco Smoking Status Never Smoker Jack Beltran [place] null, [place] 10/17/2023 09:53:17 Are You Blind Or Do [...] Of Your Most Recent Tobacco Screening? 02/01/2025 [email or web address] Information not available 02/01/2025 Do You Use Your Seat Belt Or Car Seat Routinely? No Information not available 10/17/2023 Do You Have Smoke And Carbon Monoxide Detectors In Your Home? Yes Information not available 10/17/2023 Do You Use Sunscreen Routinely? Yes [email or web address] Information not available 02/01/2025 Has Tobacco Cessation [...] Response Coronary Artery Disease N Other N Atrial Fibrillation N High Blood Pressure N Kidney or Bladder Problems N Thyroid Problems Y GI Problems N Depression N COPD N Blood Clots N Skin Problems N Anemia N Heart Attack ([place]) N Anxiety Disorder N Diabetes N Muscle, [...] influenza, unspecified formulation 2 completed Not Available [employer] 02/01/2025 11:37:25 influenza, unspecified formulation 3 completed Not Available [facility] 02/01/2025 11:37:25 influenza, unspecified formulation 4 completed Not Available [facility] 02/01/2025 11:37:25 COVID-19, mRNA, LNP-S, PF, 30 mcg/0.3 mL dose 1 completed Not Available [facility] 02/01/2025 11:37:25 COVID-19, mRNA, LNP-S, PF, 30 mcg/0.3 mL dose 1 completed Not Available [facility] 02/01/2025 11:37:25 Influenza, high-dose, trivalent, PF 4 completed Juan A Rivero MA [facility], [place] - [facility] 07/01/2024 14:17:08 Influenza, high-dose, trivalent, PF 4 completed LEONIDES Martin Attn: Accounting[address] [place], [address], [place] [facility] 07/01/2024 14:16:53 Past Encounters Encounter ID Performer Location Encounter Start Date Encounter Closed Date Diagnosis/Indication Diagnosis SNOMED-CT Code Diagnosis ICD10 Code Diagnosis Note [id number] Keanu Moss MD [facility] [address] [place] [address] 10/17/2023 09:38:03 10/17/2023 10:24:07 Diverticulitis 083410145 K57.[address] scan a/p w/c. compare to prior in the ER .Update: CT scan shows diverticul osis only, stable. no acute abscess or inflammati on. pt to continue abx course and will be cleared for cataract surgery as needed Benign ess ential hypertension 1384939 I10 stable on amlodipine 2.5mg daily. Generalize d anxiety disorder 74566162 F41.1 stable on citalopram 20mg daily. Hypothyroidism 60339539 E03.9 stable on levothyrox ine 100mcg daily Long-term drug therapy 176679068 Z79.899 Pre-surger y evaluation 806849096 Z01.818 cleared for upcoming cataract surgery. [id number] Keanu Moss MD [facility] [employer] [facility] [address] [place] [address] 03/23/2024 08:59:52 03/23/2024 09:49:34 Diverticulitis 259887697 K57.[address] scan a/p w/c.Start Augmentin 875 mg twice daily for 10 days. Also referral to General surgery given because she will need consultati on for colon resection with numerous episodes of diverticul itis. Diverticul ar disease of colon 350641995 K57.30 Underlying history of diverticul ar disease with multiple episodes of diverticul itis, refer to general surgery for consultati on Left sided abdominal pain 787752318 R10.9 As above [id number] Keanu Moss MD [facility] [employer] [facility] [address] [place] [address] 07/01/2024 13:59:44 07/01/2024 14:37:25 Administration of influenza vaccine 42841483 Z23 [id number] Keanu Moss MD [facility] [employer] [facility] [address] [place] [address] 02/01/2025 11:35:09 02/01/2025 12:18:42 Overweight in adulthood with body mass index of 25 or more but less than 30 380327364 E66.3 Z68.27 A1c 27.4 Benign ess ential hypertension 6203255 I10 Blood pressure is 140/80 today. We are going to boost amlodipine to 5 mg daily dosing to maximize treatment. Generalize d anxiety disorder 81879733 F41.1 stable on citalopram 20mg daily. Hypothyroidism 13589709 E03.9 stable on levothyrox ine 100mcg daily. Thyroid function labs are due Diverticul ar disease of colon 544777476 K57.30 Stable, up-to-date on colonoscop y Long-term current use of drug therapy 244493657 Z79.899 All routine labs ordered Cholesterol screening 27 2492951 Z13.220 Fasting lipids due Blood gluc ose outside reference range 887948181 R73.09 Due for updated A1c Gastroesop hageal reflux disease 402345228 K21.9 Acid reflux stable on famotidine 20 mg twice daily Health Concerns Section Related Observation LastModified by Organization Detai ls LastModified Time None Recorded Concern Status LastModified by Organization Details LastModified Time None Recorded Advance Directives Directive None Recorded Payers Insurance Date Sequence Insurance Name Policy Number Policy Pickett Covered Member ID Pickett Member ID Guarantor Name 02/01/2025 1 [place] Flori Bauer [id number] Flori Bauer 02/01/2025 [place] [facility] Flori Bauer [id number] Flori Bauer 02/04/2025 2 AARP Flori Bauer [id number] Flori Bauer Notes Date Note Type Note [...] thyroid supplement. LEONIDES Martin Attn: Accounting[address] [place], [address], [facility] 10/20/2023 16:51:38 03/23/20 24 text/htm l Abdominal [...] continued cause. LEONIDES Martin Attn: Accounting,[address], [place], [address], [facility] 04/10/2024 18:18:57 02/02/20 25 text/htm l Anxiety/DepressionReported [...] thyroid supplement. LEONIDES Martin Attn: Accounting,[address] [facility], [place], [address], [facility] 02/04/2025 00:13:40 OBGyn Episode No OBEpisode recorded.
--- OUTSIDE RECORDS SUMMARY | 2025-02-10 10:40 | XMS_ITS | Data Portability ---
Author Organization [facility] [employer], Main Office Address [address] [place] [address] Assessment No assessment recorded. Plan of Treatment Reminders Order Date Submit Date Provider Last Modified By Organization Details Last Modified Time Details Appointments None recorded. Lab CBC w/ auto diff [address] Out[facility] Lab, [address] [place], [address], 3 18:30:57 urinalysis, complete [address] Outpatient Lab, [address] [place], [address], 3 18:31:05 culture, urine [address] Lab, [address] [place], [address], 3 18:31:13 BMP, serum or plasma 2022 023 [facility] Out[facility], [address] [place], [address], 3 18:05:02 hepatic function panel, serum [address] Outpatient Lab, [address] [place], [address], 3 18:31:21 Referral None recorded. Procedures None recorded. Surgeries None recorded. Imaging XR, sacrum + coccyx, 2 or more view 2022 023 [facility] (Imaging), [address] [facility], [place], [address], 3 18:06:42 CT, abdomen + pelvis, w/ contrast 2022 023 [facility] (Imaging), [address] [facility], [place], [address], 3 09:03:43 Medication Orders triamcinolo ne acetonide 0.1 % topical cream 2022 023 [facility] #79252, [address], [place], [place], [id number], 3 10:05:08 nystatin 100,000 unit/gram topical powder 2022 023 [facility] #63106, [address], [place], [place], [id number], 3 10:05:07 amlodipine 2.5 mg tablet 2022 023 [facility] #59532, [address], [place], [place], [id number], 3 10:06:07 Patient TargetsNo targets recorded. Patient InstructionsNo instructions recorded. Reason for Referral None Reported. Results Created Date Observation Date Name Description Value Unit Range Abnormal Flag Note LastModifiedBy Organization Detail LastModifiedTime 05/08/20 22 05/08/2022 upper endos copy proce dure (EGD) (PROC ) No observ ation record ed. [id number] Not Available 10/09/2022 13:36:27 05/08/20 22 05/08/2022 colon oscop y proce dure (PROC ) No observ ation record ed. [id number] Chance Anand MD [address], [place], [address], 10/09/2022 13:36:27 08/19/19 23 08/19/2022 XR, chest , 2 view No observ ation record ed. [id number] [facility] (Imaging) [address] [place] [address], [address], 10/09/2022 13:36:27 08/22/19 23 08/20/2022 CT, angio gram, chest , w/wo contr ast No observ ation record ed. [id number] [facility] Add On Lab Orders [address] [place], [address], 10/09/2022 13:36:27 02/14/20 23 02/13/2023 XR, sacru m + coccy x, 2 or more view No observ ation record ed. [email or web address] [facility] (Imaging) [address] [place], [address], 04/17/2023 09:52:06 02/15/20 23 02/13/2023 CT, abdom en + pelvi s, w/ contr ast No observ ation record ed. [email or web address] [facility] (Imaging) [address] [place], [address], 02/14/2023 09:03:43 02/25/20 23 11/23/2022 MAMMO , scree porsha, digit al, bilat eral No observ ation record ed. [address], [address], 02/24/2023 17:45:11 02/25/20 23 11/23/2022 MAMMO , scree porsha, digit al, bilat eral No observ ation record ed. [address], [address], 02/24/2023 17:45:01 06/05/20 23 03/09/2023 XR, knee No observ ation record ed. [address], [address], 06/05/2023 15:56:57 10/02/19 24 10/01/2023 CT, abdom en + pelvi s, w/ contr ast No observ ation record ed. [email or web address] [facility] [address], [place], [address], 12/24/2023 09:45:55 Result Notes None recorded. Problems Name Problem SNOMED Code Status Onset Date Resolution Date Notes Provider Name and Address Organization Details Recorded Time Diverticuliti s of colon 826627294 Active 2021 Not Available [employer] 3 13:31:25 Disorder of shoulder 397334622 Active Not Available [facility] 3 13:31:25 Localized, primary osteoarthriti s 711397695 Active Not Available [facility] 3 13:31:25 Partial thickness rotator cuff tear 965164558 Active Not Available [facility] 3 13:31:25 Generalized anxiety disorder 70327709 Active 2018 Not Available [facility] 3 13:31:26 Gastroesophag eal reflux disease 631680673 Active 2022 Not Available [employer] 3 13:31:26 Shoulder joint pain 339910192 Active Not Available [facility] 3 13:31:26 Chest pain 22023791 Active 2022 Not Available [facility] 3 13:31:26 Pain of multiple joints 12102297 Active 2021 Not Available [facility] 3 13:31:26 Diverticular disease of colon 373984310 Active 2021 Not Available [facility] 3 13:31:26 Hypothyroidis m 85269260 Active 2018 Not Available [facility] 3 13:31:26 D-dimer above reference range 889885547 Active 2022 Not Available [facility] 3 13:31:26 Gastritis 2492698 Active 2021 Not Available [facility] 3 13:31:27 Cough 40351527 Active 2021 Not Available [facility] 3 13:31:27 Dyspnea on exertion 77424334 Active 2022 Not Available [facility] 3 13:31:27 COVID-19 628453657 Active 2021 Not Available [facility] 3 13:31:27 Upper respiratory infection 18365681 Active 2022 LEONIDES Martin [address], [address], [place], [address] , [employer] 3 17:09:01 Persistent cough 886115418 Active 2022 LEONIDES Martin [address], [address], [place], [address] , [employer] 3 12:10:29 Diverticuliti s 074337820 Active 2022 LEONIDES Martin [address], [address], [place], [address] , [employer] 3 12:32:37 Left lower quadrant pain 145104070 Active 2022 LEONIDES Martin [address], [address], [place], [address] , [employer] [facility] 3 15:44:11 Right lower quadrant pain 149205651 Active 2022 LEONIDES Martin [address], [address], [place], [address] , [employer] [facility] 3 15:45:01 Pain in coccyx 62731109 Active 2022 LEONIDES Martin [address], [address], [place], [address] , [employer] 3 15:45:18 Candidiasis of skin 97902548 Active 2022 LEONIDES Martin [address], [address], [place], [address] , [employer] [facility] 3 10:04:14 Benign essential hypertension 3149856 Active 2022 LEONIDES Martin [address] [facility], [facility] [address], [place], [address] , [facility] 3 10:05:27 Acute sinusitis 74579581 Active 2022 LEONIDES Martin [address] [facility], [facility] [address], [place], [address] , [facility] 3 13:48:58 Problem Notes None recorded. Procedures Surgical History Date Name Laterality Status Provider Name and Address Organization Details Recorded Time 02/26/20 19 Unlisted px femur/knee completed Not Available [facility] 10/09/2022 13:30:02 08/11/19 11 Date of Last Colonoscopy completed Not Available [facility] 10/09/2022 13:30:00 lumpectomy of breast completed Not Available [facility] 10/09/2022 13:30:02 cholecystectomy completed Not Available [facility] 10/09/2022 13:30:02 Imaging Results None recorded. Procedure Notes None recorded. Medical Equipment None Reported. Allergies Allergen ID Allergen Name Allergen Category Reaction Reaction Severity Criticality Documentation Date Start Date Code Code System Note Provider Name and Address Organization Details Recorded Time 86378 morphine medicatio n Not available Not available Not available 10/09/2022 7052 RxNorm Not Available [facility] 3 13:36:17 26079 codeine medicatio n Not available Not available Not available 10/09/2022 2670 RxNorm Not Available [facility] 3 13:36:17 Medications Name Sig Start Date [...] route as directed. 12/29 [place] [address]01 Not Available Not Available Not [...] Heart rate Body temperature Body weight Systolic And Diastolic Provider Name and Address Organization Details Last Updated DateTime 3 27.4 kg/m2 167.64 cm 99 % 99 % 76 /min 97.1 [degF] 41999.7 g 112/70 mm[Hg] Not Available [facility] 3 13:30:09 Date Recorded Body height Body temperature Body mass index (BMI) Body weight Respiratory rate Oxygen saturation Oxygen saturation in Arterial blood by Pulse oximetry Heart rate Systolic And Diastolic Provider Name and Address Organization Details Last Updated DateTime 3 167.64 cm 98.2 [degF] 27 kg/m2 26560.9 3 g 16 /min 98 % 98 % 72 /min 138/82 mm[Hg] ISABEL Joshi [email or web address] 3 15:30:50 Date Recorded Systolic And Diastolic Systolic And Diastolic Provider Name and Address Organization Details Last Updated DateTime 04/17/2023 150/80 mm[Hg] 150/80 mm[Hg] LEONIDES Martin [address] [facility], [facility] [address], [place], [address], [email or web address] 04/17/2023 10:05:19 Date Recorded Body height Body temperature Body mass index (BMI) Body weight Respiratory rate Oxygen saturation Oxygen saturation in Arterial blood by Pulse oximetry Heart rate Provider Name and Address Organization Details Last Updated DateTime 3 167.64 cm 97.8 [degF] 27.5 kg/m2 16986.5 g 16 /min 98 % 98 % 80 /min ISABEL Joshi [employer] [facility] [employer] 3 09:49:40 Date Recorded Body mass index (BMI) Body height Oxygen saturation Oxygen saturation in Arterial blood by Pulse oximetry Heart rate Respiratory rate Body temperature Body weight Systolic And Diastolic Provider Name and Address Organization Details Last Updated DateTime 2 27 kg/m2 167.64 cm 98 % 98 % 72 /min 16 /min 96.8 [degF] 97970.3 6 g 120/80 mm[Hg] Not Available [facility] 3 13:30:09 Social History Question Answer Notes LastModified by Organizat ion Details LastModified Time Tobacco Smoking Status Never Smoker Not Available [facility] 10/09/2022 13:29:44 What Is Your Level Of Caffeine Consumption? Occasional [id number] Information not available 10/09/2022 How Much Tobacco Do You Chew? None MIGRATION.706484 0625 Information not available 10/09/2022 In The 14 Days Before Symptom Onset, Have You Had Close Contact With A Laboratory-confirm ed COVID-19 While That Case Was Ill? No MIGRATION.051512 1919 Information not available 10/09/2022 In The 14 Days Before Symptom Onset, Have You Had Close Contact With A Person Who Is Under Investigation For COVID-19 While That Person Was Ill? No MIGRATION.906415 1173 Information not available 10/09/2022 What Type Of Diet Are You Following? REGULAR MIGRATION.178684 8113 Information not available 10/09/2022 Which Illicit Or Recreational Drugs Have You Used? None MIGRATION.553906 0000 Information not available 10/09/2022 Have There Been Any Changes To Your Family Or Social Situation? No MIGRATION.007826 7349 Information not available 10/09/2022 Do You Use Insect Repellent Routinely? No MIGRATION.867438 2534 Information not available 10/09/2022 What Is Your Relationship Status? MIGRATION.899938 1220 Information not available 10/09/2022 Do You Use Your Seat Belt Or Car Seat Routinely? Yes MIGRATION.393197 1334 Information not available 10/09/2022 Do You Have Smoke And Carbon Monoxide Detectors In Your Home? Yes MIGRATION.259164 0794 Information not available 10/09/2022 Are You Passively Exposed To Smoke? No MIGRATION.282889 5171 Information not available 10/09/2022 Are There Any Smokers In Your House? No MIGRATION.517844 2618 Information not available 10/09/2022 How Much Tobacco Do You Smoke? No MIGRATION.963656 0620 Information not available 10/09/2022 Do You Use Sunscreen Routinely? Yes MIGRATION.405850 4384 Information not available 10/09/2022 Have You Recently Traveled Abroad? No MIGRATION.894520 6930 Information not available 10/09/2022 Do You Have Any Dietary Restrictions? No MIGRATION.957517 9273 Information not available 10/09/2022 Sex: Unknown Functional Status Question Answer Note LastModified by Organizat ion Details LastModified Time Do you use any illicit or recreational drugs? No MIGRATION.040879 0174 Information not available 10/09/2022 Do you or have you ever used any other forms of tobacco or nicotine? No MIGRATION.910276 6938 Information not available 10/09/2022 What is your level of alcohol consumption? Occasional MIGRATION.337383 4826 Information not available 10/09/2022 Do you or have you ever used smokeless tobacco? Never used smokeless tobacco MIGRATION.786865 4891 Information not available 10/09/2022 Are you currently employed? Yes [email or web address] Information not available 02/12/2023 Do you have transportation difficulties? No MIGRATION.187712 5943 Information not available 10/09/2022 Do you have difficulty doing errands alone? No MIGRATION.137481 4550 Information not available 10/09/2022 Are you able to care for yourself? Yes MIGRATION.851214 2070 Information not available 10/09/2022 What is your occupation? [employer] MIGRATION.016025 4776 Information not available 10/09/2022 Do you have difficulty dressing or bathing? No MIGRATION.807934 2100 Information not available 10/09/2022 Do you or have you ever used e-cigarettes or vape? Never used electronic cigarettes MIGRATION.293846 4519 Information not available 10/09/2022 What is your exercise level? Moderate MIGRATION.496544 1612 Information not available 10/09/2022 Mental Status None recorded. Family History Relationship Description Onset Age of this Age Resolved Age Notes LastModified by Organization Details LastModified Time Father Heart disease MIGRATION.549 [id number] Not available 10/09/2022 13:30:02 Maternal Grandmother Heart disease MIGRATION.078 [id number] Not available 10/09/2022 13:30:03 Maternal Grandfather Heart disease MIGRATION.515 [id number] Not available 10/09/2022 13:30:03 Paternal Grandfather Heart disease MIGRATION.612 [id number] Not available 10/09/2022 13:30:03 Paternal Grandmother Heart disease MIGRATION.126 1977127 Not available 10/09/2022 13:30:03 Mother Arthritis MIGRATION.547 [id number] Not available 10/09/2022 13:30:03 Mother Diabetes mellitus MIGRATION.646 8325200 Not available 10/09/2022 13:30:03 Mother Chronic back pain MIGRATION.093 [id number] Not available 10/09/2022 13:30:03 Sister Arthritis MIGRATION.120 [id number] Not available 10/09/2022 13:30:03 Medical History Condition Response NERVE DISEASE N BLINDNESS N RHEUMATIC FEVER N KIDNEY STONES N BLADDER PROBLEMS N MRSA N OTHER # 1 N POLIO N LUNG DISEASE/DISORDER N RADIATION / CHEMOTHERAPY N COPD N Other # 2 N BLOOD DISEASES N EAR OR HEARING PROBLEMS N MUMPS N BOWEL PROBLEMS N DEPRESSION (INCLUDING POST ) N STROKE/TIA N ULCERS N BENIGN PROSTATIC HYPERPLASIA N MEASLES N MYOCARDIAL INFARCTION N OBESITY N GERD/NAUSEA N ANEURYSM N URINARY/BLADDER/KIDNEY PROBLEMS N CORONARY ARTERY DISEASE (CAD) N ADDICTION CONCERNS N ENDOMETRIOSIS N Impotence N USE OF BLOOD THINNERS N SKIN [...] APNEA N CHICKENPOX N INFECTIOUS DISEASE N HEART ARRHYTHMIA N PROSTATE N INSOMNIA N HIGH CHOLESTEROL / HYPERLIPIDEMIA N HYPERTHYROIDISM N EYE PROBLEMS N EDEMA N CHRONIC PAIN SYNDROME N HYPOTHYROIDISM Y CAROTID BLOCKAGE N CONSTIPATION N BACK / NECK PROBLEMS N HAVE YOU BEEN HOSPITALIZED OR SEEN IN [facility] IN THE PAST YEAR ? N ATHEROSCLEROSIS N BREAST PROBLEMS N DIALYSIS N ECZEMA N OSTEOPOROSIS Y ARTHRITIS N NO SIGNIFICANT PAST MEDICAL HISTORY N APPENDICITIS N DIABETES, TYPE N BAD TEETH N ENT N HEARTBURN / REFLUX Y AUTISM SPECTRUM DISORDER (ASD) N HEPATITIS / LIVER DISEASE N GOUT N SLEEP DISORDER N ALZHEIMER'S DISEASE N Brain Problems N HERPES N DEMENTIA N HEADACHES/MIGRAINES N SEIZURES/EPILEPSY N VASCULAR DISEASE N PACEMAKER N Blood Disorder N DIZZINESS N HEART DISEASE/HEART PROBLEMS N KIDNEY DISEASE N MULTIPLE SCLEROSIS N CARDIAC ARRHYTHMIA N CANCER: SPECIFY N ATRIAL FIBRILLATION N Gall Stones N [...] virus, quadrivalent, preservative 0 completed Not Available [facility] 10/09/2022 13:36:10 Influenza, high-dose, quadrivalent, PF 2 completed Not Available [facility] 10/09/2022 13:36:11 Past Encounters Encounter ID Performer Location Encounter Start Date Encounter Closed Date Diagnosis/Indication Diagnosis SNOMED-CT Code Diagnosis ICD10 Code Diagnosis Note [id number] LEONIDES Martin [facility] [address] [place] [address] 01/23/2021 00:00:00 01/26/2021 11:51:56 [id number] LEONIDES Martin [facility] [address] [place] [address] 04/22/2022 00:00:00 05/09/2022 21:40:39 [id number] LEONIDES Martin [facility] [address] [place] [address] 06/26/2022 00:00:00 06/26/2022 17:29:04 [id number] LEONIDES Martin [facility] [address] [place] [address] 08/20/2022 00:00:00 09/09/2022 19:50:09 [id number] LEONIDES Martin [facility] [place] [address] [place] [address] 02/13/2023 15:21:04 02/13/2023 15:49:42 Left lower quadrant pain 432372290 R10.[address] scan a/p w/c. concerns for diverticul itis severity, and also RLQ pain with appendix present Diverticulitis 066723652 K57.92 hx of multiple episodes of diverticul itis. Right lowe r quadrant pain 385089863 R10.31 check STAT labs. pt as appendix also and RLQ TTP w/rebound Pain in coccyx 04574227 M53.3 check xray sacram /coccyx [id number] LEONIDES Martin [facility] [place] [address] [place] [address] 04/17/2023 09:41:16 04/17/2023 10:04:24 Candidiasis of skin 31383289 B37.2 Start triamcinol one cream 0.1% bid to area and top with Nystatin powder bid. Benign ess ential hypertension 1090832 I10 Start rx for amlodipine 2.5mg daily Health Concerns Section Related Observation LastModified by Organization Detai ls LastModified Time None Recorded Concern Status LastModified by Organization Details LastModified Time None Recorded Advance Directives Directive None Recorded Payers Insurance Date Sequence Insurance Name Policy Number Policy Pickett Covered Member ID Pickett Member ID Guarantor Name 04/16/2023 1 [place] Flori Bauer [id number] Flori Bauer 05/08/2023 2 [employer] (MEDICARE SUPPLEMENT) PLAN N Flori Bauer [id number] Flori Bauer Notes Date Note Type Note Provider Name and Address Organization Details Recorded Time 04/22/2022 text/html Generic HPI TemplateReported bypatient.Notes:Pt is here for an e/r f/u from 04/14/22 for abd pain. They dx her w/diverticulitis and put her on abx. Hospital record is in the room w/her. Today she is better and not having as much abd pain. Not Available [facility] [employer] 05/09/2022 21:40:39 08/20/2022 text/html Generic HPI TemplateReported bypatient.Notes:pt tested positive for covid via otc test on new . She continues to have sob upon exertion, along w/ chest pain radiating to the mid back. Left Lower lung area is experiencing a constant pain.CXR completed Not Available [email or web address] 09/09/2022 19:50:09 02/13/2023 text/html Abdominal PainReported bypatient.Location:[facility] Quality:pain;aching;s harp Severity:pain level 10 Duration:started: (Friday) Onset/Timing:better Context:diverticuliti s Modifying Factors:on abx Associated Symptoms:no fever; no chills; no blood in the urine; no heartburn; no shortness of breath;nausea;vomitin g Other:denies possible LEONIDES Martin [address] [facility], [place] [address], [place], [address], [email or web address] 03/10/2023 22:00:39 04/17/2023 text/html Rash/Skin LesionReported bypatient.Location:un [...] throat and head pressure. LEONIDES Martin [address] [facility], [facility] [address], [place], [address], [email or web address] 05/08/2023 10:29:59 OBGyn Episode No OBEpisode recorded.
--- OUTSIDE RECORDS SUMMARY | 2025-02-10 10:40 | XMS_ITS | Clinical Summary ---
Author Organization [facility] Address [address] [place] [address] Care Team Providers Care Padder Name Role Phone Brigido Lopez MD Primary Care Provider [phone] Source Comments [facility],non-owned Affiliates and Associated Physician Practices is amultiple site organization consisting of ambulatory clinics and hospital sitesin [place], [place], [place] and [place]. This disclosure is being madepursuant to the Care Everywhere program and may not contain all information available regarding this patient. Last updated 18.[facility] Allergies Active Allergy Reactions Criticality Noted Date [...] Comments Blood Pressure 138/76 09/18/2021 11:12 AM BUSINESS SYSTEM MANAGER Pulse 72 06/26/2021 9:46 AM BUSINESS SYSTEM MANAGER Temperature 36.9 C (98.5 F) 09/18/2021 11:12 AM BUSINESS SYSTEM MANAGER Respiratory Rate - - Oxygen Saturation - - Inhaled Oxygen Concentration - - Weight 75.5 kg (166 lb 6.4 oz) 09/18/2021 11:12 AM BUSINESS SYSTEM MANAGER Height 167.6 cm (5' 6) 09/18/2021 11:12 AM BUSINESS SYSTEM MANAGER Body Mass Index 26.86 09/18/2021 11:12 AM BUSINESS SYSTEM MANAGER Plan of Treatment Health Maintenance Due Date [...] patient's age to complete this topic Insurance [employer] MEDICARE [facility] SELF PAY NO INSURANCE Member Subscriber Plan / Payer (Ef fective for All Dates) Name:Flori Bauer Member ID:Not on file Relation to Subscriber:Not on file Name:FLORI BAUER Subscriber ID:Not on file (Home) Address: [address] [place] [address] Payer ID:Not on file Group ID:Not on file Type:Self Pay Address: [place], [place] Care Teams Padder Relationship Specialty Start Date End Date Brigido Lopez MD [address] [place] [address] PCP - General 04/03/21
[2025-02-10 11:25] LABS: Hematocrit 43.7 % (37.0-47.0); Hemoglobin 14.0 g/dL (12.0-15.0); Immature Granulocyte Percent A 0.4 % (0-0.5); Lymphocytes Absolute Auto 1.40 K/mm3 (0.9-3.2); Mean Corpuscular HGB Conc 32.0 g/dl (32-36); Mean Corpuscular Hemoglobin 29.6 pg (26-34); Mean Corpuscular Volume 92.4 fl (80-100); Nucleated Red Blood Cells Absolute Auto 0.000 K/mm3 (0.0-0.012); Nucleated Red Blood Cells Perc 0.0 % (0.0-0.2); Platelet Count Result 274 k/mm3 (150-375); Red Blood Count 4.73 M/mm3 (4.2-5.4); White Blood Count 4.8 K/mm3 (4.5-10.0)
[2025-02-10 11:34] LABS: Alanine Aminotransferase 21 U/L (6-35); Albumin Level 4.6 g/dL (3.5-5.1); Alkaline Phosphatase 89 U/L (38-126); Anion Gap 11 mmol/L (4-12); Aspartate Amino Transferase 27 U/L (14-36); Bilirubin,Total 0.6 mg/dL (0.2-1.3); Blood Urea Nitrogen 16 mg/dL (7-17); Calcium 9.5 mg/dL (8.4-10.2); Carbon Dioxide 24 mmol/L (22-30); Chloride 107 mmol/L (98-107); Cholesterol 222 mg/dL (0-200); Estimated Glomerular Filt Rate 60; Glucose 94 mg/dL (65-110); HDL Direct 58 mg/dL; Potassium 4.5 mmol/L (3.4-5.0); Sodium 142 mmol/L (137-145); Total Protein 8.1 g/dL (6.3-8.2); Triglycerides 85 mg/dL (<150)
[2025-02-10 11:52] LABS: Hemoglobin A1C 5.3 % (<5.7)
[2025-02-10 12:01] LABS: Free T4 Free Thyroxine 1.60 ng/dL (0.78-2.19)
[2025-02-10 12:07] LABS: Thyroid Stimulating Hormone < 0.015 uIU/mL (0.465-4.680)
[2025-02-10 12:40] LABS: Vitamin B12 293.0 pg/mL (239-931)
== END 2025-02-10 10:35 | disposition home or self-care (01) ==
PROVIDERS: PCP Physician Assistant; Visit Provider Physician Assistant
DX: E03.9 Hypothyroidism, unspecified (principal); R73.09 Other abnormal glucose; Z79.899 Other long term (current) drug therapy; Z13.220 Encounter for screening for lipoid disorders
CPT/HCPCS: 36415; 80048; 80061; 80076; 82607; 82746; 83036; 84439; 84443; 85025

== ENCOUNTER 2025-04-20 07:37 | Outpatient (CLI) | payer MEDICARE, SELFPAY ==
--- OUTSIDE RECORDS SUMMARY | 2010-05-30 03:15 | XMS_ITS | Continuity of Care Document ---
Author Organization [facility] Address [address] [place] [address] Dr [address] [place] [id number] Phone Care Team Providers Care Joint Finisher Name Role Phone Rodríguez OD, Jose Unavailable Unavailable Procedures Procedure Date Office/outpatient Visit, Est Visual Field Examination(s) Optic Nerve Topography Optic Nerve Topography Office/outpatient Visit, Est Office/outpatient Visit, Est Visual Field Examination(s) Optic Nerve Topography Optic Nerve Topography Office/outpatient Visit, Est Fundus Photography W/ Report Eye Exam & Treatment Visual Field Examination(s) Optic Nerve Topography Optic Nerve Topography Eye Exam & Treatment Office/outpatient Visit, Est Office/outpatient Visit, Est Office/outpatient Visit, Est Office/outpatient Visit, Est Corneal Pachymetry Fundus Photography W/ Report Optic Nerve Topography Optic Nerve Topography Visual Field Examination(s) Eye Exam, New Patient Refraction Advance Directives Directive Yes / No Effective Date File Name No Information Encounters Encounter Description Practice Location Reason(s) For Visit Diagnoses Date Provider Providers Copied on Encounter Office/outpat ient Visit, Est [facility], [address] [place] [address] [address], [place], [place], [id number], [place] tel:[phone] [facility] No Information Oct-2 0-201 0 Rodríguez OD Jose. [address] [place], [place] [address] [address] , [address], [place], [place], [facility], . tel:[phone] [facility], [address] [place] [address] [address], [place], [place], [id number], [place] tel:[phone] [facility] No Information Ray-2 2-201 0 Rodríguez OD Jose. [address] [place], [place] [address]ate Center , [address], [place], [place], [facility], . tel:[phone] Referring Provider: Jose Rodríguez OD A, [address] [place], [place] [address]ate [address], [place], [facility]. tel:[phone] [facility], [address] [place] [address] [address], [place], [place], [id number], [place] tel:[phone] [facility] No Information Apr-2 3-201 0 Rodríguez OD Jose. [address] [place], [place] [address]ate Center , [address], [place], [facility], [place]. tel:[phone] Referring Provider: Jose Rodríguez OD A, [address] [place] [address]ate [address], [place], [facility]. tel:[phone] Office/outpat ient Visit, [facility], [address] [place] [address] [address], [place], [place], [address], [place] tel:[phone] [facility] [place] No Information Feb-1 0-201 0 Rodríguez OD Jose. [address] [place], [place] [address] [place] , [address], [place], [facility], . tel:[phone] Office/outpat ient Visit, [facility], [address] [place] [address] [address], [place], [place], [id number], [place] tel:[phone] SEC [facility] No Information Oct-0 7-200 9 Rodríguez OD Jose. [facility] [address], [place], [address], [place]. tel:[phone] [facility], [address], [place], [place], [address], [place] tel:[phone] SEC [facility] No Information Ray-0 9-200 9 Rodríguez OD Jose. [facility] [address], [place], [address], [place]. tel:[phone] Referring Provider: Jose Ma, [facility] [address], [place], [facility]. tel:[phone] [facility], [address] [place] [address] [address], [place], [place], [id number], [place] tel:[phone] [facility] [place] No Information Nov-1 7-200 9 Rodríguez OD Jose. [address] [place] [address], [place], [address], [place]. tel:[phone] Referring Provider: Jose Ma, [address] [place] [address]ate [address], [place], [facility]. tel:[phone] Office/outpat ient Visit, [facility], [id number] [place] [address] [address], [place], [place], [address], [place] tel:[phone] [facility] No Information Sep-2 5-200 9 Rodríguez OD Jose. [address] [place] [address], [place], [address], [place]. tel:[phone] Referring Provider: Jose Ma, [address] [place] [address]ate [address], [place], [address]. tel:[phone] [facility], [address], [place], [place], [address], [place] tel:[phone] [facility] [place] No Information Oct-2 9-200 8 Rodríguez OD Jose. [facility] , [address], [place], [facility], [place]. tel:[phone] [facility], [address] [place] [address] [address], [place], [place], [address], [place] tel:[phone] [facility] [place] No Information Ray-3 0-200 8 Rodríguez OD Jose. [facility] , [address], [place], [facility], [place]. tel:[phone] Referring Provider: Jose Rodríguez OD A, [facility] [address], [place], [facility]. tel:[phone] [facility], [address] [place] [address] [address], [place], [place], [id number], [place] tel:[phone] [facility] [place] No Information Apr-0 4-200 8 Rodríguez OD Jose. [facility] [address], [address], [place], [facility], [place]. tel:[phone] Referring Provider: Jose Rodríguez OD A, [facility] [address], [place], [facility]. tel:[phone] [facility], [address] [place] [address] [address], [place], [place], [address], [place] tel:[phone] [facility] No Information Feb-0 6-200 8 Rodríguez OD Jose. [facility] [address], [address], [place], [address], [place]. tel:[phone] Office/outpat ient Visit, Est [facility], [address] [place] [address] [address], [place], [place], [address], [place] tel:[phone] [facility] [place] No Information Cal-0 9-200 8 Rodríguez OD Jose. [address] , [address], [place], [facility], . tel:[phone] Office/outpat ient Visit, [facility], [address] [place] [address] [address], [place], [place], [address], [place] tel:[phone] SEC [facility] No Information Sep-1 9-200 7 Rodríguez OD Jose. [address] , [address], [place], [facility], [place]. tel:[phone] Office/outpat ient Visit, [facility], [address] [place] [address] [address], [place], [place], [address], [place] tel:[phone] SEC [facility] No Information May-2 4-200 7 Rodríguez OD Jose. [address] , [address], [place], [facility], [place]. tel:[phone] Office/outpat ient Visit, [facility], [address] [place] [address] [address], [place], [place], [id number], [place] tel:[phone] [facility] [place] No Information December-1 1-200 7 Rodríguez OD Jose. [address], [address], [place], [facility], [place]. tel:[phone] Referring Provider: Jose Rodríguez OD A, [facility] [address], [place], [facility]. tel:[phone] [facility], [address] [place] [address] [address], [place], [place], [id number], [place] tel:[phone] [facility] [place] No Information Apr-2 0-200 7 Rodríguez OD Jose. [address] , [address], [place], [facility], [place]. tel:[phone] Referring Provider: Jose Rodríguez OD A, [address], [place], [facility]. tel:[phone] [facility], [address] [place] [address] [address], [place], [place], [id number], tel:[phone] SEC [facility] No Information -200 7 Rodríguez OD Jose. [address] [place] [address] , [address], [place], [facility], [place]. tel:[phone] Referring Provider: Jose Rodríguez OD Francesca, [address] [place] [address] [address], [place], [facility]. tel:[phone] [facility], [address] [facility] [address], [place], [place], [address], tel:[phone] SEC [facility] No Information 1-200 7 Rodríguez OD Jose. [address] [place] [address] , [address], [place], [address], . tel:[phone] Family History Family Member Type Diagnosis Age At Onset No Information Payers Payer name Insurance type Covered republican ID Authoriza tion(s) No Information Social History Type Description Quantity Date Captured Comments Sex Female Smoking Status No Information Chief Complaint And Reason For Visit No Information Reason For Referral Reason For Referral No Information History Of Present Illness Encounter Date Complaint History Of Prese nt Illness No Information Functional Status Date Functional Assessmen t No Information Instructions Date Instruction Additional Infor mation No Information Assessments Type Assessment Date No Information Patient Care Teams Name Effective Dates (start - stop) Status Members No Information
--- NOTE | ~2025-04-20 | DEXA_ITS ---
Bone Density Report Name: TACO DAUGHERTY Age: 69 Sex: Female Ethnicity: White Date of : 1955 Indication: osteopenia; hyperparathyroidism; parental hip fracture; prior fracture; Referring Provider: SELAM PARDO Study: Bone densitometry was performed. Exam Date: April 20, 2025 Accession number: [id number] Bone Density: Region BMD T-score Z-score Classification AP Spine(L1-L4) 0.879 -1.5 0.6 Osteopenia Femoral Neck (Left) 0.595 -2.3 -0.5 Osteopenia Total Hip (Left) 0.831 -0.9 0.6 Normal Femoral Neck (Right) 0.600 -2.2 -0.5 Osteopenia Total Hip (Right) 0.863 -0.7 0.8 Normal Total Hip Mean 0.847 -0.8 0.7 Normal World Health Organization criteria for BMD impression classify patients as: Normal (T-score at or above -1.0), Osteopenia (T-score between -1.0 and -2.5), or Osteoporosis (T-score at or below -2.5). 10-year Fracture Risk(1): Major Osteoporotic Fracture 31% Hip Fracture 8.3% Reported Risk Factors: [place] (), Neck BMD=0.595, BMI=27.9, previous fracture, parental fracture (1) FRAX(R) Version 3.08. Fracture probability calculated for an untreated patient. Fracture probability may be lower if the patient has received treatment. Previous Exams: Region Exam Age BMD T-score BMD Change BMD Change Date g/cm2 vs Baseline vs Previous AP Spine (L1-L4) 04/20/2025 69 0.879 -1.5 -0.035 (-3.8%) -0.011 (-1.3%) 01/10/2023 67 0.891 -1.4 -0.024 (-2.6%) -0.025 (-2.7%) 07/21/2019 63 0.915 -1.2 0.001 (0.1%)# -0.021 (-2.2%) 02/15/2017 61 0.936 -1.0 0.021 (2.3%)# 0.021 (2.3%)# 10/13/2015 60 0.915 -1.2 0.001 (0.1%) 0.003 (0.3%)# 11/07/2014 59 0.912 -1.2 -0.002 (-0.3%) -0.002 (-0.3%) 09/30/2011 56 0.915 -1.2 Total Hip(Left) 04/20/2025 69 0.831 -0.9 0.030 (3.7%)# 0.075 (9.9%)* 01/10/2023 67 0.756 -1.5 -0.046 (-5.7%) -0.024 (-3.0%) 07/21/2019 63 0.779 -1.3 -0.022 (-2.8%) 0.029 (3.8%)* 02/15/2017 61 0.751 -1.6 -0.051 (-6.3%) -0.051 (-6.4%) 10/13/2015 60 0.801 -1.2 0.000 (0.0%) 0.038 (5.0%)# 11/07/2014 59 0.763 -1.5 -0.038 (-4.7%) -0.038 (-4.7%) 09/30/2011 56 0.801 -1.2 Total Hip(Right) 04/20/2025 69 0.863 -0.7 0.050 (6.1%)# 0.050 (6.2%)* 01/10/2023 67 0.812 -1.1 -0.001 (-0.1%) 0.004 (0.5%) 07/21/2019 63 0.808 -1.1 -0.005 (-0.6%) 0.006 (0.7%) 02/15/2017 61 0.802 -1.1 -0.010 (-1.3%) -0.039 (-4.7%) 10/13/2015 60 0.842 -0.8 0.029 (3.6%)* 0.037 (4.5%)# 11/07/2014 59 0.805 -1.1 -0.008 (-0.9%) -0.008 (-0.9%) 09/30/2011 56 0.813 -1.1 *Denotes significance at 95% confidence level, LSC for AP Spine = 0.022 g/cm2, LSC for Total Hip = 0.027 g/cm2 # Denotes dissimilar scan types or analysis methods Clinical Information Provided by Patient: Has had a low trauma fracture Parent has had a hip fracture Has the following medical conditions: Hyperparathyroidism Patient maximum height was 65 Menopause Age: 47 No regular weight bearing exercise Does not regularly consume dairy products Drinks caffeinated beverages Onset of menses at age 12 Number of children 2 Impression: The patient has low bone mass, based on the Left Femoral Neck T-score. The patient has an estimated ten-year risk of hip fracture of 8.3% and an estimated ten-year risk of major fracture of 31%, based on the WHO FRAX algorithm. The patient has risk factors, including: parental hip fracture, previous fracture. No significant bone loss was observed. Discussion: BONE DENSITY IS LOW AT ONE OR MORE SKELETAL SITES. THE PATIENT'S BMD AND CLINICAL RISK FACTORS CONTRIBUTE TO THIS PATIENT'S HIGH RISK OF FRACTURE. This patient's lowest T-score is low at one or more skeletal sites. It meets the World Health Organization's (WHO) criteria for ?low bone mass? (T-score between -1.0 and -2.5). The patient's 10-year risk of hip fracture and 10 year risk of a major osteoporotic fracture as calculated by FRAX exceeds the threshold where pharmacological therapy is recommended by the National Osteoporosis Foundation (NOF). However, all treatment decisions require clinical judgment and consideration of individual patient factors, including patient preferences, comorbidities, previous drug use, risk factors not captured in the FRAX model (e.g., frailty, falls, vitamin D deficiency, increased bone turnover, interval significant decline in bone density) and possible under or overestimation of fracture risk by FRAX. The patient should follow a healthful lifestyle (good nutrition with adequate calcium and vitamin D, and appropriate weight-bearing exercise). Follow-Up: Consider a repeat BMD and Vertebral Fracture Assessment (VFA) exam in 2 years or sooner if medically necessary, to reassess this patient's status. Reported by: ROBERTA on 04/20/2025 8:17:00 AM. Reviewed, dictated and finalized at location A.
== END 2025-04-20 07:38 | disposition home or self-care (01) ==
LOC: ANHFOHIMG 07:39
PROVIDERS: PCP Physician Assistant; Visit Provider Obstetrics & Gynecology
DX: M54.50 Low back pain, unspecified (principal); M85.88 Other specified disorders of bone density and structure, other site; M85.852 Other specified disorders of bone density and structure, left thigh; M85.851 Other specified disorders of bone density and structure, right thigh
CPT/HCPCS: 77080